=== PATIENT | male | born 1955 | race Caucasian/White ===

== ENCOUNTER → 2018-01-04 07:40 | Outpatient (CLI) | payer MEDICAID, SELFPAY ==
[2018-01-04 08:52] LABS: Hemoglobin A1c 6.6 % (4.2-6.3)
== END ==
PROVIDERS: Family Provider Internal Medicine; PCP Internal Medicine; Visit Provider Internal Medicine
DX: R73.9 Hyperglycemia, unspecified (principal)
CPT/HCPCS: 36415; 83036

== ENCOUNTER 2018-03-25 07:51 | Day surgery (SDC) | payer MEDICAID, SELFPAY ==
--- NOTE | 2018-03-25 | COLBX_PTH ---
PATIENT: AYUSH JONES LOC: EN U#:[id number] AGE/SX: 63/M ROOM: RE03/25/[address]: Dr. Douglas Santiago MD : [id number] BED: DIS: 03/25/2018 SPEC #: [id number] RECD: 03/25/18 11:54 STATUS: AYSE MONI #: [id number] AZRA: 03/25/18 00:[address]: Douglas Santiago DEPT: SURGICAL PATHOLOGY RECD BY: Douglas Talley ENTERED: 03/25/18 13:00 SP TYPE: COLON BX OT DR: Dr. Moe Luke MD Tissues: Sigmoid colon biopsy Procedures: Surgery Specimen Level IV HEADER OPERATION: Colonoscopy PRE-OP DIAGNOSIS: Screening TISSUE SUBMITTED: Distal sigmoid polyp MICROSCOPIC DIAGNOSIS Distal sigmoid polyp, polypectomy: Consistent with inflammatory polyp. SJ:nevaeh 03/26/18 MICROSCOPIC DESCRIPTION Slides are reviewed. GROSS DESCRIPTION Received in fixative is one container labeled with the patient's name and designated distal sigmoid polyp. The specimen consists of a haney-pink polyp measuring 0.7 x 0.5 x 0.3 cm. The specimen is totally submitted in one cassette. / SJ:nevaeh 03/25/18 TC:5 CPT: 46565
[2018-03-25 08:25] VITALS: BP 145/95; PULSE 84; RESP 16; TEMP 36.5; O2SAT 100; BMI 34.7
--- NOTE | 2018-03-25 09:00 | HP.PCM_ITS ---
Past Medical/Surgical History - Planned Operation Planned Operative Procedure/s: colonoscopy open access Date of Operative Procedure: 03/25/18 Permit Signed: No S.O.S: No Is This Patient Having a Total Joint: No - Previous Hospitalizations/Surgeries HX Hospitalizations: No HX of Surgeries: appendix out 1992. removed blood clot from testicle injury. colonoscopy Any Problems With Anesthesia: No You/Your Family Experience Fever (Hyperthermia) With Anes: No Cholinesterase deficiency: No - Cardiovascular Hx Chest Pain within Last 2 months: No Hx of Irregular Heartbeat and/or Afib: Yes - tachycardia/no pediatric psychiatrist Hx Heart Attack: No Hx Congestive Heart Failure: No Hx Rheumatic Fever: No Hx Hypertension: Yes - controlled with med Hx Internal Defibrillator: No Hx Pacemaker: No Hx Cardiac Catheterization: No Hx Cardiac Surgery/Stents/Etc.: No Hx Stress Test: Yes - stress echo 2013/echo 2013 HX Edema: Yes - hands prn Hx Pain in Legs when Walking/Leg Cramps: Yes - cramps prn - Respiratory Chronic Cough: No HX of Shortness of Breath: No Hoarseness: No Hx Chronic Obstructive Pulmonary Disease (COPD): No Hx Asthma: No Hx Emphysema: No Hx Sleep Apnea: Yes CPAP: Yes - doesnt use machine BIPAP: No Hx Oxygen Use at Home: No Hx Respiratory Tract Infection/Cold (presently): No Result (for STOP score): Positive Hx Smoking: Yes - quit 4-5 yrs ago/ 1 pp 3-4 days 30+ yrs Smoking Status: Former smoker - Gastrointestinal Hx Gastroesophageal Reflux: Yes Controlled With Meds: Yes Hx Gastrointestinal Disorders: No Hx Gastrointestinal Bleed: No Hx Ulcer: No Hx Hiatal Hernia: No Difficulty Chewing/Swallowing: No Recent Onset of Swallowing Problems: No Special diet followed at home: No Hx Unplanned Weight Loss of 20#: No HX Unplanned Weight Gain of 20#: Yes - Neurological Hx Seizures: No HX Syncope/Blackout Spells/Unconsciousness: Yes - loc with jammed neck injury Hx CVA/Stroke: No Hx Transient Ischemic Attacks (TIA): No Hx Multiple Sclerosis: No Hx Parkinson's Disease: No Hx Head/Neck Injury: Yes - neck injury 1996/jammed neck on the job/ddd Hx Headaches: Yes - migraines Hx Back Injury/Pain: No Recent Onset of Speech Difficulty: No Restless Legs: No Does patient have nerve stimulator: No Patient instructed to have device shut off: No Rep notified?: No - Blood Disorder Hx Leukemia: No Bleeding Tendencies: No Hx Deep Vein Thrombosis: No Hx High Cholesterol: Yes - on med Hx Hepatitis: No Hx Cirrhosis: No Hx Anemia: No Hx Blood Disorders: No - Genitourinary Hx Renal Disease: No Hx Dialysis: No - Musculoskeletal Hx Arthritis: Yes Hx Rheumatoid Arthritis: No Hx Gout: No Recent Onset of an Orthopedic Problem: No - Endocrine Hx Diabetes: No Thyroid Disease: No Hx Steroid Therapy: No - Psycho/Social Hx Substance Use: No Hx Alcohol Use: No Hx Anxiety: No Hx Depression: No - . Mental Illness: No Hx Dementia: No - Miscellaneous Hx Cancer: No Recent Exposure to Contagious Disease: No Active MRSA: No Hx of C-Diff: No Any Loose Teeth: No - upper denture and partial bottom Allergies No Known Allergies Allergy (Verified 03/20/18 09:02) Home Medications Medication Instructions Recorded enalapril maleate 10 mg tablet 10 mg PO DAILY #90 tab 01/16/18 omeprazole 20 mg capsule,delayed 20 mg PO DAILY #90 cap 01/16/18 release pravastatin 80 mg tablet 80 mg PO QHS #90 tab 01/16/18 Maternal Family History: Family History (Last Reviewed 03/11/18 @ 16:50 by Angela Dunn) Mother Cancer Father Heart disease Myocardial infarction Brother Myocardial infarction Heart disease CVA (cerebral vascular accident) Sister CVA (cerebral vascular accident) Myocardial infarction Hypertension No pertinent history - Discharge Is Pt Admitted From a [facility], or a [facility]: No Who Could Help: family After D/C, Where Do you Plan to Go: Return Home - From the PAT History Number of Risk Factors: 2 - Physical Exam General: Alert, Oriented x3, Cooperative Lungs: Normal air movement Cardiovascular: Regular rate, Regular Rhythm Abdomen: Soft, Non Tender, Non-Distended Vital Signs Temp Pulse Resp BP Pulse Ox 97.7 F L 84 16 145/95 H 100 03/25/18 08:25 03/25/18 08:25 03/25/18 08:25 03/25/18 08:25 03/25/18 08:25 Oxygen Delivery Method Room Air Weight: 256 lb 6.362 oz Body Mass Index (BMI) 34.7 Assessment/Plan 63-year-old male for screening colonoscopy 1. At the current time the patient is having no issues. He reports no bleeding or abdominal pain. He says that he had a colonoscopy 20 years ago and polyps were found but he never followed up or had a repeat colonoscopy. He reports no family history of colon cancer. 2. I explained endoscopy in detail to the patient. I explained the risks including but not limited to stroke or heart attack with anesthesia, perforation of the GI tract, bleeding, infection. I explained that any of these could necessitate further emergency surgery. The patient understands and all questions were answered sufficiently. The patient wishes to proceed with procedure. Douglas Santiago MD Pager: [facility] [address] [place] [address], [address] [place] [address] Office: Surgery Risks - Colonoscopy Risks Include but are not Limited To: Risks include but are not limited to: Bleeding, perforation requiring further surgery, inability to complete colonoscopy requiring barium enema.
--- NOTE | 2018-03-25 09:29 | PCM.OPRPT ---
Problem List (1) Screen for colon cancer Status: Acute Report of Operation Date of Procedure: 03/25/18 Pre-Operative Diagnosis: Screening colon cancer Post-Operative Diagnosis: Distal sigmoid polyp Surgery/Procedure Performed:: Colonoscopy with snare polypectomy Specimen's removed: Distal sigmoid polyp Description of Procedure: The major risks and benefits associated with the procedure were explained to the patient in detail. The patient verbalized understanding and agreement with the same. The patient was brought to the endoscopy suite. After adequate sedation was achieved, the patient was placed in the left lateral decubitus position and a digital rectal exam was performed. This examination was within normal limits. A well-lubricated colonoscope was then inserted into the rectum and advanced under direct visualization to the level of the cecum. The bowel prep was good. The cecum was identified by both visual and anatomic landmarks. A photograph was taken of the end of the cecum. The scope was then fully withdrawn while examining the color, texture, anatomy and integrity of the mucosa from the cecum to the anal canal. The patient had a small distal sigmoid polyp which was removed with cautery snare. Otherwise the findings were consistent with normal colonic mucosa. Over 6 minutes were taken to examine the colonic mucosa. Upon reaching the rectum the scope was retroflexed to examine the distal rectal vault. The scope was then straightened and was completely retrieved upon exiting the anal canal and the procedure was terminated. The patient was then transferred to the recovery room in stable condition. Recommendations for follow up: Dependent on pathology
[2018-03-25 09:31] VITALS: BP 120/78; BP 145/95; PULSE 64; RESP 16; TEMP 36.3; O2SAT 96
[2018-03-25 09:35] VITALS: BP 120/83; BP 145/95; PULSE 60; RESP 16; O2SAT 98
[2018-03-25 09:40] VITALS: BP 121/83; BP 145/95; PULSE 53; RESP 16; O2SAT 96
[2018-03-25 09:45] VITALS: BP 125/79; BP 145/95; PULSE 48; RESP 16; TEMP 36.2; O2SAT 98
[2018-03-25 10:48] VITALS: BP 145/95
== END 2018-03-25 10:49 | disposition home or self-care (01) ==
LOC: EN 07:52 → AC 07:54
PROVIDERS: Family Provider Internal Medicine; PCP Internal Medicine; Visit Provider Surgery
PROC: 0DJD8ZZ Inspection of Lower Intestinal Tract, Via Natural or Artificial Opening Endoscopic (ICD-10-PCS; CPT 45378; principal; 2018-03-25 08:55)
DX: Z12.11 Encounter for screening for malignant neoplasm of colon (principal); K63.5 Polyp of colon; I10 Essential (primary) hypertension; G47.33 Obstructive sleep apnea (adult) (pediatric); K21.9 Gastro-esophageal reflux disease without esophagitis; G43.909 Migraine, unspecified, not intractable, without status migrainosus; E78.00 Pure hypercholesterolemia, unspecified; M06.9 Rheumatoid arthritis, unspecified; Z87.891 Personal history of nicotine dependence; Z79.899 Other long term (current) drug therapy
CPT/HCPCS: 45380; 88305; J7120

== ENCOUNTER 2018-06-02 15:52 | Outpatient (RCR) | payer MEDICAID, SELFPAY | END 2018-06-02 23:59 | LOC: NS 15:52 | PROVIDERS: Family Provider Internal Medicine; PCP Internal Medicine; Visit Provider Internal Medicine | DX: E66.9 Obesity, unspecified (principal); Z68.37 Body mass index [BMI] 37.0-37.9, adult; Z71.3 Dietary counseling and surveillance | CPT/HCPCS: 97802 ==

== ENCOUNTER → 2018-08-08 08:21 | Outpatient (CLI) | payer BC, SELFPAY ==
[2018-08-08 09:11] LABS: Microalbumin,Random Urine 8.8 mg/L (NO RANGE EST.); Microalbumin:Creatinine Ratio 10.5 mg/g CRE (<30 mg/g CRE)
[2018-08-08 09:23] LABS: Cholesterol 184 mg/dL (200); Hemoglobin A1c 6.3 % (4.2-6.3); High Density Lipoprotein 49 mg/dL; PSA,Total - Annual Screen 0.43 ng/mL (0.00-4.00); Thyroid Stim Hormone (TSH) 1.34 uIU/mL (0.358-3.74); Triglycerides 180 mg/dL; Very Low Density Lipoprotein 36 mg/dL (5-40)
== END ==
PROVIDERS: Nurse Practitioner Family; Family Provider Internal Medicine; PCP Internal Medicine; Visit Provider Internal Medicine
DX: E11.9 Type 2 diabetes mellitus without complications (principal); I10 Essential (primary) hypertension; Z12.5 Encounter for screening for malignant neoplasm of prostate; Z13.29 Encounter for screening for other suspected endocrine disorder
CPT/HCPCS: 36415; 80061; 82043; 82570; 83036; 84153; 84443; G0103

== ENCOUNTER → 2019-12-23 14:36 | Outpatient (CLI) | payer BC, SELFPAY ==
[2019-12-23 14:30] VITALS: BMI 33.9
--- NOTE | 2019-12-23 14:37 | RAD_ITS ---
STUDY: X-RAY - RIGHT HAND REASON FOR EXAM: Bilateral hand pain. TECHNIQUE: 3 view(s) of the hand. COMPARISON: None. FINDINGS: Normal radiocarpal articulation. Normal distal radioulnar joint. Normal visualized carpal bones. Normal carpal articulations Normal carpometacarpal articulation of the thumb. Normal second through fifth carpometacarpal joints. Normal metacarpi. Normal metacarpophalangeal joint of the thumb. Normal interphalangeal joint of the thumb. Normal proximal and distal phalanges of the thumb. Normal metacarpophalangeal joints of the second through fifth fingers. There is joint space narrowing of the distal interphalangeal joints of the second through fifth fingers. Normal phalanges of the second through fifth fingers. The soft tissue structures are unremarkable. RAD/Hand Min 3 Views IMPRESSION: Arthrosis of the distal interphalangeal joints. Electronically Signed: Orlando Acosta MD at 14:58 EST Tel , Service support ,
--- NOTE | 2019-12-23 14:41 | RAD_ITS ---
STUDY: X-RAY - LEFT HAND REASON FOR EXAM: Bilateral hand pain. TECHNIQUE: 3 view(s) of the hand. COMPARISON: Radiographs 07/08/2013. FINDINGS: Normal radiocarpal articulation. Normal distal radioulnar joint. Normal visualized carpal bones. Normal carpal articulations Normal carpometacarpal articulation of the thumb. Normal second through fifth carpometacarpal joints. Normal metacarpi. Normal metacarpophalangeal joint of the thumb. Normal interphalangeal joint of the thumb. Normal proximal and distal phalanges of the thumb. Normal metacarpophalangeal joints of the second through fifth fingers. There is joint space narrowing of the distal interphalangeal joints of the second through fifth fingers similar to the prior study. There is interval development of joint space narrowing of the second proximal interphalangeal joint. Normal phalanges of the second through fifth fingers. There is a small ossicle at the radial aspect of the trapezium as on the prior study. RAD/Hand Min 3 Views IMPRESSION: Arthrosis of the distal interphalangeal joints and second proximal interphalangeal joint. Electronically Signed: Orlando Acosta MD at 14:58 EST Tel , Service support ,
== END ==
LOC: HPRAD 14:37
PROVIDERS: PCP Internal Medicine; Referring Provider Orthopaedic Surgery; Visit Provider Orthopaedic Surgery
DX: M79.641 Pain in right hand (principal); M79.642 Pain in left hand
CPT/HCPCS: 73130

== ENCOUNTER → 2020-03-18 | Outpatient (CLI) | payer BC, SELFPAY ==
[2020-03-18 08:02] VITALS: BMI 35.2
--- NOTE | 2020-03-18 08:11 | RAD_ITS ---
STUDY: X-RAY - LEFT ELBOW REASON FOR EXAM: Male, 65 years old. PAIN AND TIGHTNESS FOLLOWING INJURY AND FEELING A POP TECHNIQUE: 3 view(s) of the elbow. COMPARISON: None. FINDINGS: Normal visualized humerus, radius and ulna. Normal radiocapitellar and ulnotrochlear articulations. The soft tissue structures are unremarkable. RAD/Elbow min 3 Views IMPRESSION: Normal x-ray examination of the elbow. Electronically Signed: Adam Richardson MD at 8:31 EDT Tel , Service support ,
== END | disposition home or self-care (01) ==
LOC: HPRAD 08:11
PROVIDERS: PCP Internal Medicine; Referring Provider Physician Assistant Surgical; Visit Provider Physician Assistant Surgical
DX: S46.912A Strain of unspecified muscle, fascia and tendon at shoulder and upper arm level, left arm, initial encounter (principal)
CPT/HCPCS: 73080

== ENCOUNTER 2020-03-25 08:46 | Outpatient (RCR) | payer BC, SELFPAY ==
[2020-03-18 08:35] VITALS: BMI 35.2
--- NOTE | 2020-03-25 09:42 | HP.PTEVAL_ITS ---
Patient's Visit Information AYUSH JONES is a 65 year old M referred to Physical Therapy by STUART Coats with a diagnosis of L upper arm/shoulder muscle tendon strain. Date of Evaluation: 03/25/20 Physical Therapist: Maulik Brizuela DPT, OCS, CSCS - Visit Plan Frequency: 3x /Week Duration: 2-4 Weeks Plan: 3x/week for 2-4 weeks for. L elbow ROM and mobs to tolerance to regain motion. L elbow and shoulder strength taking care with L triceps pain. STM L triceps. US L triceps distal tendon nonthermal - Subjective L arm hurts. One year ago got problems with R shoulder and diagnosed with frozen shoulder. Now L elbow two weeks ago on line at [employer], raeaching into bin quite a bit and felt snap in elbow and it hurt. Has worked through it and has been better but snapping lately. Now does not hurt to move but does to push. Pain is from L elbow to wrist. Getting dressed at collar is limtied due to limited elbow flexion on L and cn't straighten it all the way. Sleep is interrupted sometimes but that is not terribly unusual for him. Still working even with bad arm. Also pulled out kitchen floor last week so can do things but it hurts at certain times . Shoulder and neck are fine, no numbness or tingling. - Pain L forearm/elbow/wrist Pain Intensity (Out of 10): 0 Pain Intensity Range: 0, 8, 9 - Objective R elbow 46 degree bend adn L 60, R -5 ext adn L -17; PROM is to 50 on L flexion and -10 ext with pain end range B being limiting factor. springy end feels on L elbow end range of ext adn flexion. Hard to relaxPosture is forward head and elevated scap B with protraction. Shoulder wrist adn finger AROM B WNL. Neck aROM WNL and no pain. Resisted shoulder movvments not painful and 4+/5, wrist and thumb ext adn flexion 4+ without pain B. R elbow ext and felxion 5/5 and L elbow flexion 5 and extension 3+ with pain proximal to posterior elbow. Also max tender int his area over triceps tendon. and fat pad only. - elbow valgus and varus. reflexes 2/3 bi and tri. sensation WNL to gross light touch in B UE. nerve stretches median and radial and ulnar are no problem. Walks and trasnitions normally. - Goals Goal 1:: Full L elbow AROM without pain to turn down collar normally Goal Time Frame: 2-4 Weeks Goal 2:: Sleep without interruption from L elbow Goal Time Frame: 2-4 Weeks Goal 3:: Work without noticing pain in L elbow and without limitations. Goal Time Frame: 2-4 Weeks Goal 4:: Pt feel 90% better adn <18 score on DASH. Goal Time Frame: 2-4 Weeks - Rehabilitation Potential Physical Therapy Diagnosis: L triceps tendon strain. Rehabilitation Potential: Fair - Anticipated Interventions Patient/Client Instruction: Educate patient on: Condition, Plan of Care For the Purpose of:: To decrease pain, To increase ROM, To improve muscle performance and motor function, To increase tolerance to activity/condition/position, To improve ability of physical actions for home/community/work/leisure Therapeutic Exercise to Include: Strength training, Postural training, Flexibilty training, Passive ROM, Active ROM For the Purpose of:: To decrease pain, To increase ROM, To improve muscle per formance and motor function, To increase tolerance to activity/condition/position, To improve ability of physical actions for home/community/work/leisure Manual Therapy Techniques to Include: Passive ROM, Soft tissue mobilization For the Purpose of:: To decrease pain, To increase ROM Ultrasound (thermal/non thermal): Yes For the Purpose of:: To decrease pain, To decrease swelling/inflammation Thank you for the opportunity to evaluate your patient. For Medicare and Medicare HMO plans, please review the plan of care and approve it. It will need to be FAXED BACK to us at [phone] for Medicare purposes. For Medicare only, by signing this I certify the plan of care. Please let me know if there are questions or concerns regarding this plan of care. Physician Signature: Date:
--- NOTE | 2020-06-01 11:03 | HP.PT.NRP ---
AYUSH JONES was seen in my office for initial evaluation on 03/25/20. The following Plan of Care was established for this patient: Initial Frequency: 3x /Week Initial Duration: 2-4 Weeks Patient/Client Instruction: Educate patient on: Condition, Plan of Care For the Purpose of:: To decrease pain, To increase ROM, To improve muscle performance and motor function, To increase tolerance to activity/condition/position, To improve ability of physical actions for home/community/work/leisure Therapeutic Exercise to Include: Strength training, Postural training, Flexibilty training, Passive ROM, Active ROM For the Purpose of:: To decrease pain, To increase ROM, To improve muscle performance and motor function, To increase tolerance to activity/condition/position, To improve ability of physical actions for home/community/work/leisure Manual Therapy Techniques to Include: Passive ROM, Soft tissue mobilization For the Purpose of:: To decrease pain, To increase ROM Ultrasound (thermal/non thermal): Yes For the Purpose of:: To decrease pain, To decrease swelling/inflammation This patient was last seen in our office 03/25/20. Pertinent comments regarding their Physical therapy will appear below: Pt seen for eval and plan of care established. Pt neglected to schedule or attend any further visits. at this point, it has been over two months and I will discontinue due to nonattendance. At this point I will be discontinuing this patient from physical therapy. I would be happy to see this patient again in the future if found appropriate by the physician. Thank you! Maulik Brizuela, DPT, OCS, CSCS
== END 2020-03-25 19:00 | disposition home or self-care (01) ==
LOC: PT 08:46
PROVIDERS: PCP Internal Medicine; Referring Provider Physician Assistant Surgical; Visit Provider Physician Assistant Surgical
DX: S46.912D Strain of unspecified muscle, fascia and tendon at shoulder and upper arm level, left arm, subsequent encounter (principal)
CPT/HCPCS: 97110; 97161

== ENCOUNTER 2020-08-21 06:22 | Emergency (ER) | payer BC, SELFPAY ==
[2020-03-18 08:35] VITALS: BMI 35.2
[2020-08-21 06:23] VITALS: BP 174/111; PULSE 84; RESP 16; TEMP 36.6; O2SAT 97; BMI 34.5
--- NOTE | 2020-08-21 06:37 | ED.DCSUM_ITS ---
History of Present Illness Chief Complaint: Sore Throat Informant: Patient Narrative: Patient is a 65-year-old male who presents to the emergency department for voice hoarseness, cough and runny nose. His initial symptoms started 4 days ago with the congestion. This resolved and now he feels like his voice is going. Denies any significant sore throat. No ear pain. His throat gets very phlegmy and this causes him to cough. He tries to get as much of this up as possible. He denies any fevers or chills. States he feels great otherwise. No known sick contacts. Denies any coronavirus exposures. He denies any nausea/vomiting or diarrhea. No rashes. No headache or stiff neck. Patient wanted to make sure that he was healthy from the coronavirus given the fact this was to get his flu shot in the next week or 2. He denies any chest pain or shortness of breath. Past Medical History - Allergies and Home Meds Allergies/Adverse Reactions: Allergies No Known Allergies Allergy (Verified 12/09/19 16:49) Primary Care Physician: Moe Luke MD [Primary Care Provider] - 1 Week if not improving Past Medical History: - - Diabetes, hypertension, hyperlipidemia Surgical History: noncontributory, - Smoking Status: Former smoker - Family History Maternal Family History: Family History (Last Reviewed 03/18/20 @ 08:05 by Michelle Salinas) Mother Cancer Father Heart disease Myocardial infarction Brother Myocardial infarction Heart disease CVA (cerebral vascular accident) Sister CVA (cerebral vascular accident) Myocardial infarction Hypertension Family History: Reports: No pertinent history Review of Systems General: Denies: Chills, Fever, Sweats Eyes: Denies: Visual changes - bilaterally, Diplopia ENT: Reports: Rhinorrhea. Denies: Bilateral ear pain Cardiovascular: Denies: Chest pain, Palpitations Respiratory: Reports: Cough. Denies: Dyspnea, Dyspnea on exertion Gastrointestinal: Denies: Abdominal pain, Nausea, Vomiting, Diarrhea Genitourinary: Denies: Dysuria, Hematuria, Frequency Musculoskeletal: Denies: Back pain, Extremity Pain Skin: Denies: Rash, Wounds Neurological: Denies: Headache, Weakness, Numbness Physical Exam Vital Signs/Narrative: Vital Signs Temp Pulse Resp BP Pulse Ox 08/21/20 06:23 97.8 F 84 16 174/111 H 97 Inital Vital Signs reviewed: Yes General: Well nourished, Well developed, No Acute Distress Head: Normocephalic, Atraumatic Eyes: Perrl, EOMI ENT: Moist mucous membranes, No rhinorrhea, - - Patient has a mildly hoarse voice but no issues handling secretions. No obvious mass or abscess present. Oral pharyngeal erythema but no tonsillar exudates. Neck: Supple, Nontender Cardiovascular: Regular rate, Regular rhythm, No murmurs Respiratory: No distress, CTA bilaterally, Chest nontender Abdomen: Soft, Nontender, Nondistended, Normal bowel sounds Back: Nontender, Normal Inspection Extremities: Nontender, No edema Skin: Normal color, No rash Neurological: Alert, Oriented x3, Normal Strength, Normal Sensation Psychological: Normal affect, Normal Mood Diagnostic/Tx/Re-eval - Medical Decision Making Patient presents the emerge department for raspy voice, rhinorrhea and cough due to phlegm. Upon arrival to the ED vital signs within normal limits except for hypertensive. He is in no acute distress. States he feels very well. He is nontoxic-appearing. Will screen for coronavirus as is what he is concerned of. Otherwise I believe that he has a laryngitis from a viral infection. He can gargle salt water and use throat lozenges as needed. Warning signs and symptoms for which to return to the ED including any difficulty breathing, oral swelling or developing any fever/chills are reviewed with him. He understands and is agreeable this plan. Will discharge home in stable condition. He is to follow- up with his PCP. ED Disposition - Plan for ED Patient: Disposition: Home or Assisted Living Diagnosis: Laryngitis Instructions: ED Laryngitis Referrals: Moe Luke MD [Primary Care Provider] - 1 Week if not improving
[2020-08-21 07:00] VITALS: PULSE 84; RESP 16; TEMP 36.6; O2SAT 97
== END 2020-08-21 07:01 | disposition home or self-care (01) ==
LOC: ED 06:53
PROVIDERS: Emergency Provider Emergency Medicine; PCP Internal Medicine
DX: J04.0 Acute laryngitis (principal); I10 Essential (primary) hypertension; E78.5 Hyperlipidemia, unspecified; E11.9 Type 2 diabetes mellitus without complications; Z79.899 Other long term (current) drug therapy
CPT/HCPCS: 87635; 99282; U0003

== ENCOUNTER 2020-11-30 05:41 | Emergency (ER) | payer BC, SELFPAY ==
[2020-08-24 15:55] VITALS: BMI 34.5
[2020-11-30] VITALS (7 sets, daily range): BP systolic 116–181; BP diastolic 74–103; PULSE 56–76; RESP 14–19; TEMP 36.1; O2SAT 98–99; BMI 33.8
--- NOTE | 2020-11-30 05:47 | RAD_ITS ---
HISTORY: CP EXAM: XR Chest 1 View: COMPARISON: July 18, 2015 FINDINGS: # of images incl. paperwork: 1 Lungs are clear. Heart is not enlarged. No acute osseous pathology perceived. Pulmonary vascularity is distinct. No effusions. RAD/Chest 1 View (Portable) IMPRESSION: No acute cardiopulmonary disease perceived. at 0618 Reported and signed by: Tarun Sabillon MD Electronically Signed: Tarun Sabillon MD at 6:17 EST Tel , Service support ,
--- NOTE | 2020-11-30 05:47 | EKG12_ITS ---
Test Reason : CP Blood Pressure : / mmHG Vent. Rate : 073 BPM Atrial Rate : 073 BPM P-R Int : 158 ms QRS Dur : 088 ms QT Int : 384 ms P-R-T Axes : 043 039 050 degrees QTc Int : 423 ms Normal sinus rhythm Normal ECG Confirmed by RICHELLE PALMA, SANDRA ([id number]), story editor SANDRA GORDON ([id number]) on 12/05/2020 10:59:39 AM Referred By: BRUNA Confirmed By:TEJAS PEOPLES MD
--- NOTE | 2020-11-30 05:48 | ED.VISSUMM ---
- ER Visit Summary Date of Service: 11/30/20 Chief Complaint: Chest pain History of Present Illness: The patient is a 65 M who presents with chest pain. He states that started about 20 minutes ago. He was getting ready for work and felt a sharp pain on his left chest. He also describes as tightness. While he was driving here the pain went away on its own. Nothing seemed to make it better or worse. He currently has no pain. He did feel short of breath when this was occurring. He had an episode like this which he describes as worse 6 years ago. He had an outpatient stress test which was negative. He has hypertension high cholesterol but no other cardiac risk factors. He has never had a heart attack. He does not take aspirin at home. Physical Examination: Vital signs reviewed. HEENT exam unremarkable. Heart is regular rate and rhythm without murmurs. Lungs are clear to auscultation. Abdomen is soft and nontender. Extremities reveal no edema. Peripheral pulses are equal. Skin exam normal. Neurologic exam normal. Test Results: \EKG is normal sinus rhythm with rate of 73. No ST changes. Laboratory studies are unremarkable except for glucose of 134. Chest x-ray normal. Emergency Department Course and Treatment: The patient remained pain-free throughout his stay. He did receive aspirin. When I reevaluated him he was still pain-free. Due to his 2 risk factors, I will do a 3-hour troponin. If this is negative he will be discharged home to follow-up for outpatient stress test. Treatment Plan: [] Disposition: Pending Impression: Chest pain This note was generated with ViewCast dictation software. It may contain incorrect words, spelling, and punctuation that were not noted in review of the chart prior to signing ED Disposition - Plan for ED Patient: Referrals: Moe Luke MD [Primary Care Provider] -
[2020-11-30 05:54] LABS: Absolute Lymphocyte Count 1.66 X10^3/uL (0.83-4.51); Absolute Neutrophil Count 3.7 X10^3/uL (2.0-7.7); Basophil# 0.03 X10^3/uL; Basophil% 0.5 % (0-1); Eosinophil# 0.17 X10^3/uL; Eosinophils% 2.7 % (0-5); Hematocrit 42.2 % (40-54); Hemoglobin 14.1 g/dL (13.0-16.5); Lymphocyte # 1.66 X10^3/ul (4.0); Lymphocyte % 26.1 % (19-41); Mean Corp Hgb Conc 33.4 g/dL (32-36); Mean Corpuscular Hgb 30.5 pg (27.0-32.0); Mean Corpuscular Volume 91.3 fL (80-94); Mean Platelet Vol. 8.9 fl (6.2-12.0); Monocyte# 0.75 X10^3/uL; Monocyte% 11.8 % (0-10); NRBC Flagged by Analyzer 0 % (0-5); Neutrophil # 3.72 X10^3/uL (2.7-7.7); Neutrophil % 58.6 % (47-70); Platelet Count 217 K/mm3 (150-450); RBC Distribution Width CV 11.9 % (11.6-14.6); RBC Distribution Width SD 39.5 fl (35.1-43.9); Red Blood Count 4.62 M/mm3 (4.6-6.2); White Blood Count 6.4 K/mm3 (4.4-11.0)
[2020-11-30] MEDS: Aspirin 81 MG TAB.CHEW 324 MG PO (05:55)
[2020-11-30 06:12] LABS: Anion Gap 4 (5-15); BUN 24 mg/dL (7-18); BUN/Creat Ratio 19.8 RATIO (10-20); Calcium,Total 8.9 mg/dL (8.5-10.1); Chloride 104 mmol/L (98-107); Creatinine, Serum 1.21 mg/dL (0.70-1.30); EST Glomerular Filtration Rate 64 mL/min (>60); Est Glom Filt Rate - Afr Amer 78 mL/min (>60); Glucose 154 mg/dL (74-106); Potassium 4.3 mmol/L (3.5-5.1); Sodium Level 136 mmol/L (136-145)
--- NOTE | 2020-11-30 06:35 | ED.DEP ---
ED Disposition - Plan for ED Patient: Disposition: Home or Assisted Living Instructions: ED Chest Pain, Uncertain Cause Referrals: Moe Luke MD [Primary Care Provider] -
== END 2020-11-30 09:40 | disposition home or self-care (01) ==
PROVIDERS: Emergency Provider Emergency Medicine; PCP Internal Medicine
DX: R07.89 Other chest pain (principal); I10 Essential (primary) hypertension; E78.00 Pure hypercholesterolemia, unspecified; K21.9 Gastro-esophageal reflux disease without esophagitis; Z79.899 Other long term (current) drug therapy
CPT/HCPCS: 36415; 71045; 80048; 84484; 85025; 93005; 99285; A4216

== ENCOUNTER 2021-04-22 01:12 | Emergency (ER) | payer BC, SELFPAY ==
[2021-04-19 14:03] VITALS: BMI 33.8
[2021-04-22 01:13] VITALS: BP 159/95; PULSE 83; RESP 18; TEMP 37.6; O2SAT 94; BMI 33.4
[2021-04-22 01:16] VITALS: BP 159/95; PULSE 77; RESP 18; TEMP 37.6; O2SAT 95
--- NOTE | 2021-04-22 01:24 | RAD_ITS ---
STUDY: X-RAY CHEST REASON FOR EXAM: Male, 66 years old. covid 19 shortness of breath TECHNIQUE: 1 view COMPARISON: 11/30/2020 FINDINGS: Cardiomediastinal silhouette is unremarkable. Costophrenic angles are sharp. Lungs are clear. The trachea is midline. There is no pneumothorax. Multilevel thoracic spondylosis noted. RAD/Chest 1 View (Portable) IMPRESSION: No acute cardiopulmonary process. Electronically Signed: Nomi Shook MD at 1:58 EDT Tel , Service support ,
--- NOTE | 2021-04-22 01:26 | EDS_ITS ---
HPI History of Present Illness Chief Complaint: Cough Informant: patient and EMS Narrative Narrative: 66-year-old male presents to the emergency department via EMS with cough from COVID-19. He states he tested positive at the [facility] locally on Saturday. He reports that he is not having any sputum. Fever is better. He did lose his sense of taste. He denies really any other symptoms. His had to be hospitalized. He is not currently taking any prescription medications. He has tried [id number] medicines. His biggest complaint is some left sided chest soreness with coughing. [facility] Medical History Abnormal bruising Arthritis Chronic back pain Diabetes Fatigue Frequent headaches Hyperlipemia Limb weakness Shoulder pain Home Medications enalapril maleate 20 mg tablet See Rx Instructions .ROUTE .COMPLEX #90 tab 08/24/20 [Rx Last Taken Unknown] omeprazole 20 mg capsule,delayed release 20 mg PO DAILY #30 cap 04/07/21 [Rx Last Taken Unknown] pravastatin 80 mg tablet 80 mg PO QHS #30 tab 04/07/21 [Rx Last Taken Unknown] benzonatate 100 mg capsule 100 mg PO TID PRN #30 cap 04/19/21 [Rx Last Taken Unknown] guaifenesin 1,200 mg tablet, extended release 12 hr 1,200 mg PO BID #20 tab 04/19/21 [Rx Last Taken Unknown] acetaminophen-codeine 1 tab PO Q6H PRN #20 tab 04/22/21 [Rx Last Taken Unknown] dexamethasone [Decadron] 6 mg PO DAILY #4 tab 04/22/21 [Rx Last Taken Unknown] Allergy/AdvReac Type Severity Reaction Status Date / Time No Known Allergies Allergy Verified 11/30/20 05:48 Family History Mother Cancer Father Heart disease Myocardial infarction Brother Myocardial infarction Heart disease CVA (cerebral vascular accident) Sister CVA (cerebral vascular accident) Myocardial infarction Hypertension Surgical History History of appendectomy Social History Smoking Status: Never smoker how long ago did patient quit smokin alcohol intake: never substance use type: does not use what type of physical activity do you participate in: none ROS ROS ED Constitutional Constitutional ED: Denies chills or weight loss Eyes Eyes: Denies change in vision or diplopia ENT ENT ED: Denies ear pain, rhinorrhea or sore throat Cardiovascular Cardiovascular: Reports chest pain; Denies orthopnea, palpitations or racing heartbeat Respiratory/Chest Respiratory/Chest: Reports cough; Denies dyspnea or orthopnea Gastrointestinal Gastrointestinal: Denies abdominal pain, diarrhea, nausea or vomiting Genitourinary Genitourinary ED: Denies dysuria, hematuria or urinary frequency Musculoskeletal Musculoskeletal: Denies arthralgias or myalgias Integumentary Denies abscess or rash Neurologic Neurologic: Denies headache(s) or weakness Psychiatric Psychiatric: Denies anxiety, depression, suicidal ideation or suicidal thoughts Endocrine Endocrinology: Denies polydipsia, polyphagia or polyuria Allergic/Immunologic Allergic/Immunologic ED: Denies mouth swelling, tongue swelling or urticaria EXAM Physical Exam Const Vital Signs: 04/22/21 01:13 04/22/21 01:16 Temperature 99.7 F H 99.7 F H Temperature Source Oral Oral Pulse Rate 83 77 Respiratory Rate 18 18 Blood Pressure 159/95 H 159/95 H Blood Pressure Mean 116 116 Pulse Ox 94 95 Oxygen Delivery Method Room Air Room Air Positive well nourished and well developed General Appearance ED: well developed HEENT Reports normocephalic, head/scalp atraumatic and moist mucous membranes Eyes PERRL and EOMs intact bilaterally Neck no lymphadenopathy, supple and no JVD Resp normal respiratory effort and clear to auscultation bilaterally Resp Narrative: Tender palpation over the left anterior mid and lower costochondral border Effort and Inspection: pain with movement Cardio regular rate, regular rhythm and no murmurs GI normal to inspection, nondistended, normoactive bowel sounds and non-tender Palpation: soft Back/Spine no CVA tenderness and normal ROM Extremity normal to inspection General Extremety ED: Negative for edema General Extremity: Negative for edema Neuro oriented x3 and CN's II-XII intact bilaterally Sensorium / Orientation: alert Motor Exam: strength 5/5 throughout Psych mental status grossly normal Mood & Affect: Negative for depressed or tearful Skin no rashes or lesions noted and no wounds MDM MDM MDM Narrative Medical decision making narrative: Patient received albuterol and Decadron. He will receive prescription for the same. I can also write some Tylenol with codeine for the cough. My interpretation of the chest x-ray is is atelectatic changes of the left lower lung. Patient will be discharged home. Return if worsening or concerns he does have a pulse oximeter at home Discharge Plan Triage Chief Complaint: Cough ED Provider: Tyrone Walker Dx/Rx/DC Orders Clinical Impression: COVID-19, Acute chest wall pain Instructions: Coronavirus Disease 2019 (COVID-19): Caring for Yourself or Others, ED Chest Wall Pain, Costochondritis Prescriptions: New dexamethasone [Decadron] 6 mg tablet 6 mg PO DAILY Qty: 4 RF: 0 acetaminophen-codeine 300-30 mg tablet 1 tab PO Q6H PRN (Reason: pain) Qty: 20 RF: 0 No Action enalapril maleate 20 mg tablet See Rx Instructions .ROUTE .COMPLEX Qty: 90 RF: 3 benzonatate [Tessalon Perles] 100 mg capsule 100 mg PO TID PRN (Reason: cough) Qty: 30 RF: 0 guaifenesin 1,200 mg tablet extended release 12hr 1,200 mg PO BID Qty: 20 RF: 0 omeprazole 20 mg capsule,delayed release(DR/EC) 20 mg PO DAILY Qty: 30 RF: 0 pravastatin 80 mg tablet 80 mg PO QHS Qty: 30 RF: 0 Primary Care Provider: Moe Luke Referrals: Moe Luke MD [Primary Care Provider] - As Needed Disposition Disposition: Home, self care
[2021-04-22 02:01] VITALS: BP 141/94; PULSE 81; RESP 15; TEMP 36.9; O2SAT 95
[2021-04-22] MEDS: dexAMETHasone 4 MG Tablet 6 MG PO (02:03)
[2021-04-22] MEDS: INHALER, ASSIST DEVICES 1 EACH SPACER 2 EACH INHALATION (02:04)
[2021-04-22 02:06] VITALS: O2SAT 95
== END 2021-04-22 02:11 | disposition home or self-care (01) ==
PROVIDERS: Emergency Provider Emergency Medicine; PCP Internal Medicine
DX: U07.1 COVID-19 (principal); R07.89 Other chest pain; M19.90 Unspecified osteoarthritis, unspecified site; E11.9 Type 2 diabetes mellitus without complications; E78.5 Hyperlipidemia, unspecified; Z79.899 Other long term (current) drug therapy
CPT/HCPCS: 71045; 99284

== ENCOUNTER 2021-04-28 10:02 | Emergency (ER) | payer BC, SELFPAY ==
[2021-04-28 10:05] VITALS: BP 129/92; PULSE 84; RESP 18; TEMP 36.6; O2SAT 98; BMI 33.5
[2021-04-28 10:12] VITALS: BP 129/92; PULSE 84; RESP 18; TEMP 36.6; O2SAT 98
[2021-04-28 10:23] VITALS: BMI 33.5
--- NOTE | 2021-04-28 10:30 | EKG12_ITS ---
Test Reason : Blood Pressure : / mmHG Vent. Rate : 095 BPM Atrial Rate : 095 BPM P-R Int : 132 ms QRS Dur : 084 ms QT Int : 348 ms P-R-T Axes : 037 031 044 degrees QTc Int : 437 ms Normal sinus rhythm Normal ECG Confirmed by REVA PALMA, JAZMIN ([id number]), video editor MATHEW KELLER ([id number]) on 05/01/2021 1:35:00 PM Referred By: GILMA/ROSAURA Confirmed By:JAZMIN ARDON MD
--- NOTE | 2021-04-28 10:31 | EDS_ITS ---
HPI History of Present Illness Chief Complaint: Neuro S/Sx Informant: patient Narrative Narrative: Patient is a 66-year-old male that is about 10 to 11 days status post COVID-19 infection presenting with blurry vision. Patient states his Covid course is been relatively uncomplicated. 6 days ago he was seen in the ER for chest wall pain associated with coughing and was started on steroid burst, pain medicine and an inhaler. He states his coughing and chest pain has resolved and he finishes steroids 2 days ago. He states over the past 4 days has had increased blurry vision. He states it looks like he is looking at things underwater. He does not wear corrective lenses normally. He notes he is also had a painful lump in his throat and white plaques on his tongue and mouth. His thinks he has thrush. He notes he had some slight ringing in his ear right greater than left for the past 2 days. He had a mild headache 2 days ago but that resolved with [id number] Excedrin and did not return. He denies any weakness or paresthesias. He notes he has had polyuria and polydipsia. His chart says he has a history of diabetes however patient denies any history of diabetes mellitus. He is not check his blood sugar at home. He is not on anti coagulation. Denies any head injuries. Not complain of any photophobia. No other complaints at this time. [facility] Medical History Abnormal bruising Arthritis Chronic back pain Diabetes Fatigue Frequent headaches Hyperlipemia Limb weakness Shoulder pain Home Medications enalapril maleate 20 mg tablet See Rx Instructions .ROUTE .COMPLEX #90 tab 08/24/20 [Rx Last Taken Unknown] omeprazole 20 mg capsule,delayed release 20 mg PO DAILY #30 cap 04/07/21 [Rx Last Taken Unknown] pravastatin 80 mg tablet 80 mg PO QHS #30 tab 04/07/21 [Rx Last Taken Unknown] benzonatate 100 mg capsule 100 mg PO TID PRN #30 cap 04/19/21 [Rx Last Taken Unknown] guaifenesin 1,200 mg tablet, extended release 12 hr 1,200 mg PO BID #20 tab 04/19/21 [Rx Last Taken Unknown] acetaminophen-codeine 1 tab PO Q6H PRN #20 tab 04/22/21 [Rx Last Taken Unknown] dexamethasone [Decadron] 6 mg PO DAILY #4 tab 04/22/21 [Rx Last Taken Unknown] metformin 500 mg PO BID #20 tab 04/28/21 [Rx Last Taken Unknown] nystatin 4 ml PO Q6H #60 ml 04/28/21 [Rx Last Taken Unknown] Allergy/AdvReac Type Severity Reaction Status Date / Time No Known Allergies Allergy Verified 04/28/21 10:12 Family History Mother Cancer Father Heart disease Myocardial infarction Brother Myocardial infarction Heart disease CVA (cerebral vascular accident) Sister CVA (cerebral vascular accident) Myocardial infarction Hypertension Surgical History History of appendectomy Social History Smoking Status: Never smoker how long ago did patient quit smokin alcohol intake: never substance use type: does not use what type of physical activity do you participate in: none ROS ROS ED Constitutional Constitutional ED: Denies chills, fever(s) or malaise Eyes Eyes: Reports blurry vision; Denies diplopia or loss of vision ENT ENT ED: Reports sore throat; Denies ear pain or rhinorrhea Cardiovascular Cardiovascular: Denies chest pain or dizziness Respiratory/Chest Respiratory/Chest: Denies cough or dyspnea Gastrointestinal Gastrointestinal: Denies nausea or vomiting Genitourinary Genitourinary ED: Denies dysuria or hematuria Musculoskeletal Musculoskeletal: Denies arthralgias or myalgias Integumentary Denies rash or wounds Neurologic Neurologic: Denies focal weakness or headache(s) Psychiatric Psychiatric: Denies anxiety or behavioral changes Endocrine Endocrinology: Reports polydipsia and polyuria EXAM Physical Exam Const Vital Signs: 04/28/21 10:05 04/28/21 10:12 04/28/21 11:12 Temperature 98 F 98 F 97.6 F L Temperature Source Temporal Temporal Temporal Pulse Rate 84 84 64 Respiratory Rate 18 18 18 Blood Pressure 129/92 H 129/92 H 113/75 Blood Pressure Mean 104 104 87 Pulse Ox 98 98 Oxygen Delivery Method Room Air Room Air 04/28/21 12:00 04/28/21 14:47 Temperature 98 F Temperature Source Temporal Pulse Rate 76 61 Respiratory Rate 15 16 Blood Pressure 130/91 H 142/84 H Blood Pressure Mean 104 Pulse Ox 97 Oxygen Delivery Method Positive well nourished, well developed and no apparent distress General Appearance ED: well developed HEENT Reports normocephalic, TM's clear and moist mucous membranes HEENT Narrative: Patient is a white plaque on his buccal surface and erythema of the oropharynx consistent with thrush atraumatic Nose: no nasal discharge General Ear: hearing grossly impaired External Ear: external ears normal Tympanic Membrane ED: Yes TM's clear Mouth ED: Yes moist mucous membranes abnormal Mouth: moist mucous membranes abnormal Eyes PERRL and EOMs intact bilaterally Neck full ROM, no lymphadenopathy, supple, no meningeal signs and no JVD Chest Wall inspection of chest normal Resp normal respiratory effort, normal air movement and clear to auscultation bilaterally Auscultation: Negative for wheezes Cardio regular rate and regular rhythm GI normal to inspection, nondistended, normoactive bowel sounds Extremity normal to inspection and full ROM Neuro oriented x3, CN's II-XII intact bilaterally, no focal motor deficits and no sensory deficits noted Neuro Narrative: Normal [id number] Sensorium / Orientation: alert Motor Exam: strength 5/5 throughout Psych mental status grossly normal and thought process normal Skin no rashes or lesions noted and no wounds MDM MDM MDM Narrative Medical decision making narrative: Patient is evaluated for blurry vision. He recently had Covid and is recently been on antibiotics. He denies any history of diabetes but chart shows that he does have a history of diabetes but he is not on any medications/treatment for diabetes mellitus. I suspect his blurred vision associated with hyperglycemia. He has a normal neurologic exam otherwise does not have a visual field cut. Patient is hyperglycemic with a glucose of 319 however he has a normal anion gap and no ketones/acetone. He does have a mild leukocytosis of 12.1 but there is no obvious or some infection. Urinalysis shows spillage of glucose but no signs of infection. Patient does have thrush on oral exam. Patient feels he has had some improvement with IV fluids. I suspect his hyperglycemia is exacerbated by his recent Decadron prescription. Given he did recently have Covid and the risk of clotting I did perform a head CT and CTA which were negative. I did discuss the case with his PCP who is agreeable with outpatient follow-up and with starting Metformin. She stresses that he should follow-up in the office on Saturday. Patient states he has an appointment to be seen on Saturday. Patient discharged home in stable condition. Lab Data Labs: Laboratory Results - last 24 hr 04/28/21 04/28/21 04/28/21 10:34 10:45 10:45 WBC 12.1 H RBC 4.45 L Hgb 13.7 Hct 39.5 L MCV 88.8 MCH 30.8 MCHC 34.7 RDW Std Deviation 37.2 RDW Coeff of Kalee 11.6 Plt Count 333 MPV 9.1 Immature Gran % (Auto) 4.200 H Neut % (Auto) 63.7 Lymph % (Auto) 20.5 [place] % (Auto) 9.3 Eos % (Auto) 1.7 Baso % (Auto) 0.6 Absolute Neuts (auto) 7.7 Absolute Lymphs (auto) 2.48 Nucleated RBC % 0 Sodium 132 L Potassium 4.7 Chloride 97 L Carbon Dioxide 27.0 Anion Gap 8 BUN 35 H Creatinine 1.22 Estim Creat Clear Calc 66.26 Est GFR (MDRD) Af Amer 77 Est GFR (MDRD) Non-Af 63 BUN/Creatinine Ratio 28.7 H Glucose 319 H Calcium 8.9 Total Bilirubin 0.40 AST 25 ALT 74 H Alkaline Phosphatase 133 H Troponin I < 0.015 Total Protein 7.3 Albumin 3.6 Globulin 3.7 Albumin/Globulin Ratio 1.0 Urine Color Urine Clarity Urine pH Ur Specific [place] Urine Protein Urine Glucose (UA) Urine Ketones Urine Occult Blood Urine Nitrite Urine Bilirubin Urine Urobilinogen Ur Leukocyte Esterase Urine RBC Urine WBC Ur Squamous Epith Cells Urine Bacteria Urine Mucus Acetone Level POC Glucose 344 H 04/28/21 04/28/21 10:45 12:30 WBC RBC Hgb Hct MCV MCH MCHC RDW Std Deviation RDW Coeff of [place] Plt Count MPV Immature Gran % (Auto) Neut % (Auto) Lymph % (Auto) [place] % (Auto) Eos % (Auto) Baso % (Auto) Absolute Neuts (auto) Absolute Lymphs (auto) Nucleated RBC % Sodium Potassium Chloride Carbon Dioxide Anion Gap BUN Creatinine Estim Creat Clear Calc Est GFR (MDRD) Af Amer Est GFR (MDRD) Non-Af BUN/Creatinine Ratio Glucose Calcium Total Bilirubin AST ALT Alkaline Phosphatase Troponin I Total Protein Albumin Globulin Albumin/Globulin Ratio Urine Color Yellow Urine Clarity Clear Urine pH 6.0 Ur Specific [place] 1.030 Urine Protein 15 H Urine Glucose (UA) 1000 H Urine Ketones Negative Urine Occult Blood Negative Urine Nitrite Negative Urine Bilirubin Negative Urine Urobilinogen Normal Ur Leukocyte Esterase Negative Urine RBC 0 SEEN Urine WBC 0-5 SEEN Ur Squamous Epith Cells 0-5 SEEN Urine Bacteria 0 SEEN Urine Mucus 0 SEEN Acetone Level NEGATIVE POC Glucose Radiography Diagnostic Testing: Radiology Impression Head/Neck CTA 04/28/21 12:09 IMPRESSION: Normal CTA Head and neck with contrast. Electronically Signed: Alejandro Ruelas MD at 13:05 EDT , Service support , Rhythm Strip Rhythm Strip: Sinus Rhythm Rate: 95 Ectopy: None EKG Initial EKG: Attestation: I personally reviewed and interpreted this EKG as follows: Interpretation: Sinus Rhythm Comments: Normal sinus rhythm rate 95 Normal axis Normal intervals Normal ST segments Discharge Plan Triage Chief Complaint: Neuro S/Sx ED Provider: [facility] Dx/Rx/DC Orders Clinical Impression: Candidiasis of mouth, Acute hyperglycemia Instructions: Oral Thrush, ED Hyperglycemia New Susp Diabetes Prescriptions: New nystatin 100,000 unit/mL suspension 4 ml PO Q6H Qty: 60 RF: 0 metformin 500 mg tablet 500 mg PO BID Qty: 20 RF: 0 No Action enalapril maleate 20 mg tablet See Rx Instructions .ROUTE .COMPLEX Qty: 90 RF: 3 benzonatate [Tessalon Perles] 100 mg capsule 100 mg PO TID PRN (Reason: cough) Qty: 30 RF: 0 guaifenesin 1,200 mg tablet extended release 12hr 1,200 mg PO BID Qty: 20 RF: 0 dexamethasone [Decadron] 6 mg tablet 6 mg PO DAILY Qty: 4 RF: 0 acetaminophen-codeine 300-30 mg tablet 1 tab PO Q6H PRN (Reason: pain) Qty: 20 RF: 0 omeprazole 20 mg capsule,delayed release(DR/EC) 20 mg PO DAILY Qty: 30 RF: 0 pravastatin 80 mg tablet 80 mg PO QHS Qty: 30 RF: 0 Primary Care Provider: Moe Luke Referrals: Moe Luke MD [Primary Care Provider] - Activity Restrictions/Additional Instructions: Called office to follow-up on SATURDAY. Disposition Disposition: Home, self care Discharge Date/Time: 04/28/21 14:55
[2021-04-28 10:41] LABS: Bedside Glucose 344 mg/dL (70-110)
[2021-04-28] MEDS: 0.9% Normal Saline 1,000 ML 1000 ML IV (10:54)
[2021-04-28 11:05] LABS: Absolute Lymphocyte Count 2.48 X10^3/uL (0.83-4.51); Absolute Neutrophil Count 7.7 X10^3/uL (2.0-7.7); Basophil# 0.07 X10^3/uL; Basophil% 0.6 % (0-1); Eosinophil# 0.21 X10^3/uL; Eosinophils% 1.7 % (0-5); Hematocrit 39.5 % (40-54); Hemoglobin 13.7 g/dL (13.0-16.5); Lymphocyte # 2.48 X10^3/ul (0.83-4.51); Lymphocyte % 20.5 % (19-41); Mean Corp Hgb Conc 34.7 g/dL (32-36); Mean Corpuscular Hgb 30.8 pg (27.0-32.0); Mean Corpuscular Volume 88.8 fL (80-94); Mean Platelet Vol. 9.1 fl (6.2-12.0); Monocyte# 1.12 X10^3/uL; Monocyte% 9.3 % (0-10); NRBC Flagged by Analyzer 0 % (0-5); Neutrophil # 7.71 X10^3/uL (2.7-7.7); Neutrophil % 63.7 % (47-70); Platelet Count 333 K/mm3 (150-450); RBC Distribution Width CV 11.6 % (11.6-14.6); RBC Distribution Width SD 37.2 fl (35.1-43.9); Red Blood Count 4.45 M/mm3 (4.6-6.2); White Blood Count 12.1 K/mm3 (4.4-11.0)
[2021-04-28 11:12] VITALS: BP 113/75; PULSE 64; RESP 18; TEMP 36.4
[2021-04-28 11:16] LABS: AST(SGOT) 25 U/L (15-37); Alanine Aminotransfer ALT/SGPT 74 U/L (16-61); Albumin, Serum 3.6 g/dL (3.2-5.0); Alkaline Phosphatase 133 U/L (45-117); Anion Gap 8 (5-15); BUN 35 mg/dL (7-18); BUN/Creat Ratio 28.7 RATIO (10-20); Calcium,Total 8.9 mg/dL (8.5-10.1); Chloride 97 mmol/L (98-107); Creatinine, Serum 1.22 mg/dL (0.70-1.30); EST Glomerular Filtration Rate 63 mL/min (>60); Est Glom Filt Rate - Afr Amer 77 mL/min (>60); Estimated Creatinine Clearance 66.26 ml/min; Globulin 3.7 g/dL (2.2-4.2); Glucose 319 mg/dL (74-106); Potassium 4.7 mmol/L (3.5-5.1); Protein, Total 7.3 g/dL (6.4-8.2); Sodium Level 132 mmol/L (136-145)
[2021-04-28 12:00] VITALS: BP 130/91; PULSE 76; RESP 15; TEMP 36.6
--- NOTE | 2021-04-28 12:09 | CT_ITS ---
STUDY: CTA HEAD AND NECK WITH CONTRAST REASON FOR EXAM: Male, 66 years old. Blurry vision, recent covid RADIATION DOSAGE (If Supplied By Facility): CTDIvol = ( 31.22 ) mGy, DLP = ( 1642.12 ) mGycm TECHNIQUE: CT angiography was performed with a multi-detector CT scanner. Data acquisition was obtained from the skull base through the vertex following intravenous administration of IV 100mL Isovue-370. MIP images were reconstructed from the axial data set. Post-processing of the angiographic images was performed, with multiplanar reformation and 3D reconstruction. Individualized dose optimization techniques were used for this CT. COMPARISON: No relevant priors. FINDINGS: Normal bilateral petrous carotid arteries. Normal right cavernous carotid artery with a normal supraclinoid bifurcation. Normal left cavernous carotid artery with a normal supraclinoid bifurcation. Normal right A1 segments of the anterior cerebral artery. Normal left A1 segments of the anterior cerebral artery. Normal intact anterior communicating artery (ACOM). Normal bilateral A2 segments of the anterior cerebral arteries. Normal right M1 and M2 segments of the middle cerebral arteries, with a normal M1 bifurcation. Normal left M1 and M2 segments of the middle cerebral arteries, with a normal M1 bifurcation. Normal right posterior communicating artery (PCOM). Normal left posterior communicating artery (PCOM). Normal bilateral vertebral arteries. Normal basilar artery with a normal basilar bifurcation. The visualized bilateral superior cerebellar (SCA) arteries are normal. Normal bilateral P1, P2 and visualized P3 segments of the posterior cerebral arteries. There is no demonstrated aneurysm of the [place]. There is no demonstrated abnormality of the visualized brain. AORTIC ARCH: There is a mild degree of atherosclerotic calcific plaque formation of the aortic arch and great vessels arising from the aortic arch, without a hemodynamically significant stenosis. There is a normal origin of the brachiocephalic, left common carotid, and left subclavian arteries. RIGHT CAROTID ARTERIES: Normal right common carotid artery (CCA). Normal right common carotid bulb. Normal origin of the right internal carotid (ICA) artery without a hemodynamically significant stenosis. Normal visualized cervical portion of the right internal carotid artery. Normal origin of the right external carotid artery (ECA). LEFT CAROTID ARTERIES: Normal left common carotid artery (CCA). Normal left common carotid bulb. There is minimal atherosclerotic plaque formation of the origin of the left internal carotid artery with less than 50% cross sectional diameter stenosis. Normal visualized cervical portion of the left internal carotid artery. Normal origin of the left external carotid artery (ECA). VERTEBRAL ARTERIES: Normal bilateral vertebral arteries. CT/CTA Head AND Neck W/ Contrast IMPRESSION: Normal CTA Head and neck with contrast. Electronically Signed: Alejandro Ruelas MD at 13:05 EDT , Service support ,
[2021-04-28 12:40] LABS: Bacteria 0 SEEN /hpf (None Seen); Mucous, Urine 0 SEEN /hpf (<or=2+); Red Blood Cells-Urine 0 SEEN /hpf (0-5)
[2021-04-28 12:46] LABS: Color, Urine Yellow (Yellow); Glucose, Dipstick 1000 mg/dl (Normal); Ketone-Dipstick Negative (Negative); Leukocyte Esterase-Dipstick Negative /ul (Negative); Nitrite-Dipstick Negative (Negative); Occult Blood-Urine Negative /ul (Negative); Protein-Dipstick 15 mg/dl (Negative); Urine Bilirubin Dipstick Negative (Negative); Urine Clarity Clear (Clear); Urine Urobilinogen Normal (Normal)
[2021-04-28 12:56] LABS: White Blood Cells 0-5 SEEN /hpf (0-5)
[2021-04-28 12:57] LABS: Squamous Epithelial Cells - UA 0-5 SEEN /hpf (0-5)
[2021-04-28 14:47] VITALS: BP 142/84; PULSE 61; RESP 16; O2SAT 97
== END 2021-04-28 14:55 | disposition home or self-care (01) ==
PROVIDERS: Emergency Provider Emergency Medicine; PCP Internal Medicine
DX: B37.0 Candidal stomatitis (principal); E11.65 Type 2 diabetes mellitus with hyperglycemia; M19.90 Unspecified osteoarthritis, unspecified site; E78.5 Hyperlipidemia, unspecified; Z86.16 Personal history of COVID-19; Z79.899 Other long term (current) drug therapy
CPT/HCPCS: 70496; 70498; 80053; 81001; 82009; 82962; 84484; 85025; 93005; 96360; 96361; 99283; J7030; Q9967; A4216

== ENCOUNTER → 2021-04-28 | Outpatient (CLI) | payer BC, SELFPAY ==
[2021-04-28 10:05] VITALS: BMI 33.5
== END | disposition home or self-care (01) ==
LOC: LABSPEC 10:21
PROVIDERS: PCP Internal Medicine; Referring Provider Physician Assistant; Visit Provider Physician Assistant
DX: U07.1 COVID-19 (principal)
CPT/HCPCS: 87635; U0005; U0003

== ENCOUNTER → 2021-08-04 15:59 | Outpatient (CLI) | payer BC, SELFPAY ==
[2021-08-04 17:42] LABS: Hemoglobin A1c 6.7 % (3.8-5.6)
[2021-08-04 17:49] LABS: Microalbumin,Random Urine 7.2 mg/L (NO RANGE EST.); Microalbumin:Creatinine Ratio 4.4 mg/g CRE (<30 mg/g CRE)
[2021-08-04 17:53] LABS: AST(SGOT) 26 U/L (15-37); Alanine Aminotransfer ALT/SGPT 36 U/L (16-61); Albumin, Serum 4.1 g/dL (3.2-5.0); Alkaline Phosphatase 73 U/L (45-117); Anion Gap 6 (5-15); BUN 19 mg/dL (7-18); BUN/Creat Ratio 18.8 RATIO (10-20); Bilirubin, Direct 0.13 mg/dL (0.00-0.30); Calcium,Total 8.9 mg/dL (8.5-10.1); Chloride 106 mmol/L (98-107); Cholesterol 175 mg/dL (200); Creatinine, Serum 1.01 mg/dL (0.70-1.30); EST Glomerular Filtration Rate 79 mL/min (>60); Est Glom Filt Rate - Afr Amer 95 mL/min (>60); Globulin 3.3 g/dL (2.2-4.2); Glucose 104 mg/dL (74-106); High Density Lipoprotein 48 mg/dL; Potassium 4.1 mmol/L (3.5-5.1); Protein, Total 7.4 g/dL (6.4-8.2); Sodium Level 137 mmol/L (136-145); Triglycerides 174 mg/dL; Very Low Density Lipoprotein 35 mg/dL (5-40)
== END ==
PROVIDERS: PCP Family Medicine; Referring Provider Family Medicine; Visit Provider Family Medicine
DX: E11.9 Type 2 diabetes mellitus without complications (principal)
CPT/HCPCS: 36415; 80048; 80061; 80076; 82043; 82570; 83036

== ENCOUNTER 2021-08-10 13:38 | Emergency (ER) | payer BC, SELFPAY ==
[2021-08-10 13:40] VITALS: BP 164/96; PULSE 91; RESP 14; TEMP 35.8; O2SAT 97; BMI 33.2
--- NOTE | 2021-08-10 14:06 | RAD_ITS ---
STUDY: X-RAY CHEST REASON FOR EXAM: Male, 66 years old. Chest pain TECHNIQUE: PA and lateral views of the chest. COMPARISON: Comparison is made with prior study dated 04/22/2021. FINDINGS: Hyperinflation. The lungs are clear. There is no demonstrated pleural abnormality. Normal size heart. Normal mediastinum and lex. Normal visualized pulmonary arteries. There is atherosclerotic calcification of the aortic arch with tortuosity. There are diffuse degenerative changes of the visualized thoracic spine. Normal visualized ribs, clavicles, and shoulders. There is no demonstrated abnormality of the visualized soft tissue structures of the upper abdomen. RAD/Chest PA and Lateral IMPRESSION: Hyperinflation. The lungs are clear. Electronically Signed: Alejandro Ruelas MD at 14:41 EDT , Service support ,
--- NOTE | 2021-08-10 14:06 | EKG12_ITS ---
Test Reason : CHEST PAIN Blood Pressure : / mmHG Vent. Rate : 069 BPM Atrial Rate : 069 BPM P-R Int : 158 ms QRS Dur : 090 ms QT Int : 396 ms P-R-T Axes : 046 047 042 degrees QTc Int : 424 ms Normal sinus rhythm Normal ECG Confirmed by RICHELLE PALMA, SANDRA ([id number]), food editor MATHEW KELLER ([id number]) on 08/11/2021 10:20:55 A M Referred By: VIC Confirmed By:TEJAS PEOPLES MD
--- NOTE | 2021-08-10 14:07 | ED.VIS.CHEST ---
HPI History of Present Illness Chief Complaint: Chest Other Informant: patient Onset/Context/Timing Onset: Hours (7) Activity at onset: sudden and activity on onset (lifting a heavy bag at work) Timing: Continuous Quality: Positive for - (sore, like I need to stretch it out) Location: Substernal (w/ mild radiation around both sides of ribcage) Current Severity: Mild Maximum Severity: Moderate Worsened By: Movement of Arm and Movement of Torso Relieved By: Rest and Remaining Still Associated Symptoms: Negative for Nausea, Vomiting, Diaphoresis, Dyspnea, Cough, Fever, Lightheadedness, Acid Reflux and Palpitations Narrative Narrative: 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 He states sometimes he gets this discomfort, and then he does stretch it out and feels pop and then the pain goes away but not today. He states he is 66 years old and this has been occurring with the same symptoms about once a year since he was around 44 years old. He does not have a history of heart problems. He takes medications for blood pressure and Metformin. He denies any associated symptoms. He states he is wanting to make sure he is okay so he can have a note to go back to work which is what he prefers to do. They took him off of heavy lifting when he told them this occurred today. [facility] Medical History Abnormal bruising Arthritis Blurred vision Chronic back pain Diabetes Fatigue Frequent headaches Hyperlipemia Limb weakness Shoulder pain Home Medications metformin 1,000 mg tablet 1,000 mg PO BID #180 tab 05/02/21 [Rx Last Taken Unknown] nystatin 100,000 unit/mL oral suspension 4 ml PO Q6H #60 ml 05/02/21 [Rx Last Taken Unknown] enalapril maleate 20 mg tablet See Rx Instructions .ROUTE .COMPLEX #90 tab 05/16/21 [Rx Last Taken Unknown] metformin 1,000 mg tablet,extended release 24hr 1,000 mg PO QPM #90 tab 05/16/21 [Rx Last Taken Unknown] omeprazole 20 mg capsule,delayed release 20 mg PO DAILY #90 cap 05/16/21 [Rx Last Taken Unknown] pravastatin 80 mg tablet 80 mg PO QHS #90 tab 05/16/21 [Rx Last Taken Unknown] Allergy/AdvReac Type Severity Reaction Status Date / Time No Known Allergies Allergy Verified 08/10/21 13:40 Family History Mother Cancer Father Heart disease Myocardial infarction Brother Myocardial infarction Heart disease CVA (cerebral vascular accident) Sister CVA (cerebral vascular accident) Myocardial infarction Hypertension Surgical History History of appendectomy Social History Smoking Status: Never smoker how long ago did patient quit smokin alcohol intake: never substance use type: does not use what type of physical activity do you participate in: none ROS ROS ED Constitutional Constitutional ED: Denies chills or fever(s) Eyes Eyes: Denies change in vision or diplopia ENT ENT ED: Denies rhinorrhea or sore throat Cardiovascular Cardiovascular: Denies chest pain or palpitations Respiratory/Chest Respiratory/Chest: Denies cough or dyspnea Gastrointestinal Gastrointestinal: Denies abdominal pain, diarrhea, nausea or vomiting Genitourinary Genitourinary ED: Denies dysuria or hematuria Musculoskeletal Musculoskeletal: Denies back pain or neck pain Integumentary Denies abscess or rash Neurologic Neurologic: Denies headache(s), paresthesias or weakness Psychiatric Psychiatric: Denies anxiety or suicidal thoughts EXAM Physical Exam Const Vital Signs: 08/10/21 13:40 Temperature 96.5 F L Temperature Source Temporal Pulse Rate 91 Respiratory Rate 14 Blood Pressure 164/96 H Blood Pressure Mean 118 Pulse Ox 97 Oxygen Delivery Method Room Air Positive well nourished and well developed General Appearance ED: well developed and NAD HEENT Reports moist mucous membranes normocephalic and atraumatic Eyes PERRL and EOMs intact bilaterally Neck full ROM and supple Resp normal respiratory effort and clear to auscultation bilaterally Cardio regular rate, regular rhythm and no murmurs GI non-tender and non-distended Auscultation: normoactive bowel sounds Palpation: soft Back/Spine no CVA tenderness General Back: other FROM Extremity normal to inspection General Extremety ED: Negative for edema, pulses abnormal or tenderness General Extremity: Negative for edema or pulses abnormal Neuro oriented x3, CN's II-XII intact bilaterally and no sensory deficits noted Sensorium / Orientation: awake and alert Motor Exam: strength 5/5 throughout Skin no rashes or lesions noted and no wounds Heart Score History: Slightly/Non-Suspicious ECG: Normal Age: >/= 65 years Risk Factors: 1 or 2 Risk Factors Troponin: </= Normal Limit Score: 3 MDM MDM MDM Narrative Medical decision making narrative: EKG, chest x-ray, troponin all normal. Patient has had this discomfort all day he feels it is musculoskeletal and given these test results, I suspect he is correct. He was given a dose of Naprosyn given a note that I feel is okay for him to return to work. If it persists I recommend he follow-up closely with his doctor he is comfortable with that plan. Lab Data Attestation: I reviewed the patient's lab results. Labs: Laboratory Results - last 24 hr 08/10/21 14:11 Troponin I High Sens 11 Radiography Diagnostic Testing: Radiology Impression Chest X-Ray 08/10/21 14:06 IMPRESSION: Hyperinflation. The lungs are clear. Electronically Signed: Alejandro Ruelas MD at 14:41 EDT , Service support , EKG Initial EKG: Attestation: I personally reviewed and interpreted this EKG as follows: Interpretation: Sinus Rhythm and No Acute Injury Pattern Comments: Normal EKG with rate 69 [place] 47 normal Discharge Plan Triage Chief Complaint: Chest Other ED Provider: George Hardy Dx/Rx/DC Orders Clinical Impression: Acute chest wall pain Instructions: ED Chest Wall Pain, Costochondritis Prescriptions: No Action metformin 1,000 mg tablet 1,000 mg PO BID Qty: 180 RF: 1 nystatin 100,000 unit/mL suspension 4 ml PO Q6H Qty: 60 RF: 0 metformin 1,000 mg tablet extended release 24hr 1,000 mg PO QPM Qty: 90 RF: 3 enalapril maleate 20 mg tablet See Rx Instructions .ROUTE .COMPLEX Qty: 90 RF: 3 pravastatin 80 mg tablet 80 mg PO QHS Qty: 90 RF: 3 omeprazole 20 mg capsule,delayed release(DR/EC) 20 mg PO DAILY Qty: 90 RF: 3 Stand Alone Forms: Work Status Form Primary Care Provider: Darrell Jolly Referrals: Darrell Jolly MD [Primary Care Provider] - 3-5 Days if not improving Disposition Disposition: Home, Self Care
[2021-08-10 14:33] LABS: Troponin-I HS 11 pg/mL (3.0-78.0)
[2021-08-10 15:30] VITALS: PULSE 88; RESP 17; O2SAT 97
[2021-08-10] MEDS: Naproxen 375 MG Tablet PO (15:47)
== END 2021-08-10 15:48 | disposition home or self-care (01) ==
PROVIDERS: Emergency Provider Emergency Medicine; PCP Family Medicine
DX: R07.89 Other chest pain (principal); M19.90 Unspecified osteoarthritis, unspecified site; E11.9 Type 2 diabetes mellitus without complications; E78.5 Hyperlipidemia, unspecified; Z79.84 Long term (current) use of oral hypoglycemic drugs
CPT/HCPCS: 71046; 84484; 93005; 99283

== ENCOUNTER 2021-11-06 03:53 | Emergency (ER) | payer BC, SELFPAY ==
[2021-11-06 03:54] VITALS: BP 168/97; PULSE 78; RESP 18; TEMP 36.6; O2SAT 98; BMI 33.5
[2021-11-06 03:56] VITALS: BP 168/97; PULSE 78; RESP 18; TEMP 36.6; O2SAT 98
--- NOTE | 2021-11-06 04:00 | RAD_ITS ---
STUDY: X-RAY - RIGHT FOOT CLINICAL: Male, 66 years old. puncture pain TECHNIQUE: 3 view(s) of the foot. COMPARISON: None. FINDINGS: No acute fracture or dislocation. There is degenerative changes of the first carpometacarpal joint. No radiopaque foreign bodies visualized. Calcaneal spurring is present. The soft tissue structures are unremarkable. RAD/Foot min 3 Views IMPRESSION: No acute fracture or radiopaque foreign body visualized. Electronically Signed: Gian Du MD at 4:32 EST Tel , Service support ,
--- NOTE | 2021-11-06 04:01 | ED.VIS.LOWEX ---
HPI History of Present Illness Chief Complaint: Wound Informant: patient Narrative Narrative: Patient presents with discomfort in the bottom of his right foot. He states that yesterday he stepped on a nail. This was inside his house. He was cleaning up boards. He states the nail was clean. The total nail length was about an inch. It was poking out from a board. Mild bleeding. He states it just hurts when he puts weight on it. There is been no drainage. No fevers chills sweats. No swelling. Weightbearing makes it worse and rest makes it better. Last tetanus is unknown. Patient initially denied any medical problems. However, with detailed questioning I find out he actually is on medicines for high blood pressure, high cholesterol and diabetes. He had initially denied having diabetes when specifically asked. He now does state that his recent hemoglobin A1c was 7.1. This was within the last 2 weeks. [facility] Medical History Abnormal bruising Arthritis Blurred vision Chronic back pain COVID Diabetes Fatigue Frequent headaches Hyperlipemia Hypertension Limb weakness Shoulder pain Home Medications nystatin 100,000 unit/mL oral suspension 4 ml PO Q6H #60 ml 05/02/21 [Rx Last Taken Unknown] enalapril maleate 20 mg tablet See Rx Instructions .ROUTE .COMPLEX #90 tab 05/16/21 [Rx Last Taken Unknown] omeprazole 20 mg capsule,delayed release 20 mg PO DAILY #90 cap 05/16/21 [Rx Last Taken Unknown] pravastatin 80 mg tablet 80 mg PO QHS #90 tab 05/16/21 [Rx Last Taken Unknown] amoxicillin-pot clavulanate [Augmentin] 1 tab PO BID #20 tab 11/06/21 [Rx Last Taken Unknown] glimepiride 1 mg PO DAILY 11/06/21 [History Last Taken Unknown] Allergy/AdvReac Type Severity Reaction Status Date / Time No Known Allergies Allergy Verified 08/10/21 13:40 Family History Mother Cancer Father Heart disease Myocardial infarction Brother Myocardial infarction Heart disease CVA (cerebral vascular accident) Sister CVA (cerebral vascular accident) Myocardial infarction Hypertension Surgical History History of appendectomy Social History Smoking Status: Never smoker how long ago did patient quit smokin alcohol intake: never substance use type: does not use what type of physical activity do you participate in: none ROS ROS ED Constitutional Constitutional ED: Denies chills or fever(s) Gastrointestinal Gastrointestinal: Denies nausea or vomiting Musculoskeletal Musculoskeletal: Reports other Details: Right foot pain. Please see history of present illness. Integumentary Reports other Details: Puncture to bottom of right foot. No drainage. No erythema. No swelling. Neurologic Neurologic: Reports other Details: No known history of diabetic neuropathy. ; Denies paresthesias Endocrine Endocrinology: Denies polydipsia or polyuria Hematologic/Lymphatic Hematologic/Lymphatic: Reports other Details: Not on any anticoagulation. ; Denies easy bleeding or easy bruising EXAM Physical Exam Const Vital Signs: 11/06/21 03:54 11/06/21 03:56 Temperature 97.9 F 97.9 F Temperature Source Temporal Temporal Pulse Rate 78 78 Respiratory Rate 18 18 Blood Pressure 168/97 H 168/97 H Blood Pressure Mean 120 120 Pulse Ox 98 98 Oxygen Delivery Method Room Air Room Air Positive well nourished and well developed General Appearance ED: well developed and NAD HEENT Reports moist mucous membranes normocephalic Neck full ROM Chest Wall inspection of chest normal Resp normal respiratory effort and clear to auscultation bilaterally Cardio regular rate Extremity Extremity Narrative: Patient does have wound consistent with a small puncture wound on the bottom of his right foot. There is a diameter of approximately 2-1/2 cm around this that has some contusion. There is no erythema. There is no swelling. There is no warmth. It is mildly tender at the spot. There is no lymphangitic streaking up the leg. Neuro oriented x3 Sensorium / Orientation: alert Skin Skin Narrative: See above. Trauma: puncture MDM MDM MDM Narrative Medical decision making narrative: Blood glucose was 146. Three-view x-ray of the foot was looked at by me. There is no sign of foreign body. I do not see any irregularity or involvement or fracture of bones. There is no gas or air noted in the tissue. Patient did stepped on a nail. He was inside his house at the time. He was not wearing shoes. He was wearing a cloth type slipper. He does have a slightly delayed presentation. We will start him on Augmentin. We had a talk about signs and symptoms to look for with worsening. These would include pain, swelling, drainage, redness, fever, red streak up his legs, nausea vomiting or any other concerns. It was explained that he still could worsen and he may need admission to the hospital in the future. He should check in with his physician in the next couple days for recheck to make sure this looks well. Lab Data Attestation: I reviewed the patient's lab results. Labs: Laboratory Results - last 24 hr 11/06/21 04:04 POC Glucose 146 H Discharge Plan Triage Chief Complaint: Wound ED Provider: Lorenzo Dubois Dx/Rx/DC Orders Clinical Impression: Puncture wound of foot, right Instructions: ED Puncture Wound (Foot) Prescriptions: New amoxicillin-pot clavulanate [Augmentin] 875-125 mg tablet 1 tab PO BID Qty: 20 RF: 0 No Action nystatin 100,000 unit/mL suspension 4 ml PO Q6H Qty: 60 RF: 0 enalapril maleate 20 mg tablet See Rx Instructions .ROUTE .COMPLEX Qty: 90 RF: 3 pravastatin 80 mg tablet 80 mg PO QHS Qty: 90 RF: 3 omeprazole 20 mg capsule,delayed release(DR/EC) 20 mg PO DAILY Qty: 90 RF: 3 glimepiride 1 mg tablet 1 mg PO DAILY RF: 0 Primary Care Provider: Darrell Jolly Referrals: Darrell Jolly MD [Primary Care Provider] - 2 Days for wound check Disposition Disposition: Home, Self Care
[2021-11-06 04:11] LABS: Bedside Glucose 146 mg/dL (70-110)
[2021-11-06] MEDS: Amox/Clavulanate 875 MG Tablet PO (04:42)
[2021-11-06] MEDS: Diphth,Pertuss(Acell),Tet Vac 0.5 ML Vial IM (04:42)
== END 2021-11-06 05:11 | disposition home or self-care (01) ==
PROVIDERS: Emergency Provider Emergency Medicine; PCP Family Medicine
DX: S91.331A Puncture wound without foreign body, right foot, initial encounter (principal); W22.8XXA Striking against or struck by other objects, initial encounter; Y92.9 Unspecified place or not applicable; E11.9 Type 2 diabetes mellitus without complications; E78.00 Pure hypercholesterolemia, unspecified; E78.5 Hyperlipidemia, unspecified; I10 Essential (primary) hypertension; G89.29 Other chronic pain; M19.90 Unspecified osteoarthritis, unspecified site; Z87.891 Personal history of nicotine dependence
CPT/HCPCS: 73630; 82962; 90471; 90715; 99283

== ENCOUNTER → 2022-07-27 | Outpatient (CLI) | payer BC, SELFPAY ==
[2022-07-27 10:36] LABS: Anion Gap 8 (5-15); BUN 23 mg/dL (7-18); BUN/Creat Ratio 20.4 RATIO (10-20); Chloride 104 mmol/L (98-107); Cholesterol 171 mg/dL (200); Creatinine, Serum 1.13 mg/dL (0.70-1.30); EST Glomerular Filtration Rate 69 mL/min (>60); Est Glom Filt Rate - Afr Amer 83 mL/min (>60); Glucose 139 mg/dL (74-106); High Density Lipoprotein 40 mg/dL; Potassium 4.4 mmol/L (3.5-5.1); Sodium Level 138 mmol/L (136-145); Thyroid Stim Hormone (TSH) 1.54 uIU/mL (0.358-3.74); Triglycerides 218 mg/dL; Very Low Density Lipoprotein 44 mg/dL (5-40)
== END | disposition home or self-care (01) ==
LOC: MFPLAB 08:02
PROVIDERS: PCP Family Medicine; Referring Provider Family Medicine; Visit Provider Family Medicine
DX: E11.9 Type 2 diabetes mellitus without complications (principal); E66.9 Obesity, unspecified
CPT/HCPCS: 36415; 80048; 80061; 84443

== ENCOUNTER → 2022-12-24 | Outpatient (CLI) | payer BC, SELFPAY ==
[2022-12-24 18:19] LABS: Anion Gap 9 (5-15); BUN 20 mg/dL (7-18); BUN/Creat Ratio 19.4 RATIO (10-20); Calcium,Total 9.1 mg/dL (8.5-10.1); Chloride 105 mmol/L (98-107); Cholesterol 170 mg/dL (200); Creatinine, Serum 1.03 mg/dL (0.70-1.30); EST Glomerular Filtration Rate 77 mL/min (>60); Est Glom Filt Rate - Afr Amer 93 mL/min (>60); Glucose 105 mg/dL (74-106); High Density Lipoprotein 48 mg/dL; Potassium 4.2 mmol/L (3.5-5.1); Sodium Level 138 mmol/L (136-145); Triglycerides 251 mg/dL; Very Low Density Lipoprotein 50 mg/dL (5-40)
[2022-12-24 19:22] LABS: Hemoglobin A1c 6.8 % (3.8-5.6)
== END | disposition home or self-care (01) ==
LOC: MFPLAB 16:28
PROVIDERS: PCP Family Medicine; Visit Provider Family Medicine
DX: I10 Essential (primary) hypertension (principal); E11.9 Type 2 diabetes mellitus without complications
CPT/HCPCS: 36415; 80048; 80061; 83036

== ENCOUNTER 2023-01-17 02:01 | Emergency (ER) | payer BC, SELFPAY ==
[2023-01-17 02:02] VITALS: BP 163/93; PULSE 87; RESP 18; TEMP 36.6; O2SAT 97; BMI 35.2
--- NOTE | 2023-01-17 02:29 | EDS_ITS ---
HPI History of Present Illness Chief Complaint: Diarrhea Narrative Narrative: Patient is a 67-year-old male with past medical history of type 2 diabetes and hyperlipidemia. He states he went to bed Saturday night feeling normal then awoke around 1 in the morning with generalized abdominal discomfort feeling like he had to have a bowel movement. He states when he did this it was watery/diarrhea. He states as time passed he had increasing abdominal discomfort as well as increasing bouts of diarrhea. He reports that there has been no sick contacts and that his does not have any similar symptoms. He also denies any recent antibiotic use travel outside the country or livestock exposure. He states he saw an urgent care provider and was advised to take [id number] Imodium. He states he did this but there was no improvement of his symptoms and secondary to this he comes in for evaluation. Patient denies any history of ulcerative colitis Crohn's disease or IBS [facility] Medical History Abdominal pain Abnormal bruising Arthritis Blurred vision Chronic back pain COVID Diabetes Diarrhea Fatigue Frequent headaches Hyperlipemia Hypertension Limb weakness Shoulder pain Home Medications nystatin 100,000 unit/mL oral suspension 4 ml PO Q6H #60 mL 05/02/21 [Rx Last Taken Unknown] enalapril maleate 20 mg tablet See Rx Instructions .Route .COMPLEX #90 tabs 05/16/21 [Rx Last Taken Unknown] omeprazole 20 mg capsule,delayed release 20 mg PO DAILY #90 caps 05/16/21 [Rx Last Taken Unknown] pravastatin 80 mg tablet 80 mg PO QHS #90 tabs 05/16/21 [Rx Last Taken Unknown] amoxicillin 875 mg-potassium clavulanate 125 mg tablet (Augmentin) 1 tab PO BID #20 tabs 11/06/21 [Rx Last Taken Unknown] glimepiride 1 mg tablet 1 mg PO DAILY 11/06/21 [History Last Taken Unknown] dicyclomine 20 mg tablet 20 mg PO 4X/DAY PRN PRN Abdominal bloating/spasm #28 tabs 01/17/23 [Rx Last Taken Unknown] diphenoxylate-atropine 2.5 mg-0.025 mg tablet (Lomotil) 1 tab PO 4X/DAY PRN PRN diarrhea 5 days #20 tabs 01/17/23 [Rx Last Taken Unknown] ondansetron 4 mg disintegrating tablet 4 mg PO TID PRN nausea and vomiting #21 tabs 01/17/23 [Rx Last Taken Unknown] Allergy/AdvReac Type Severity Reaction Status Date / Time No Known Allergies Allergy Verified 01/17/23 02:05 Family History Mother Cancer Father Heart disease Myocardial infarction Brother Myocardial infarction Heart disease CVA (cerebral vascular accident) Sister CVA (cerebral vascular accident) Myocardial infarction Hypertension Surgical History History of appendectomy Social History Smoking Status: Never smoker how long ago did patient quit smokin alcohol intake: never substance use type: does not use what type of physical activity do you participate in: none ROS ROS ED Constitutional Constitutional ED: Denies chills or fever(s) ENT ENT ED: Denies sore throat Cardiovascular Cardiovascular: Denies chest pain Respiratory/Chest Respiratory/Chest: Denies cough or dyspnea Gastrointestinal Gastrointestinal: Reports abdominal pain, diarrhea and nausea; Denies vomiting Genitourinary Genitourinary ED: Denies dysuria or hematuria Musculoskeletal Musculoskeletal: Reports myalgias Integumentary Denies rash Neurologic Neurologic: Denies headache(s) Hematologic/Lymphatic Hematologic/Lymphatic: Denies easy bleeding or easy bruising EXAM Physical Exam Const Vital Signs: 01/17/23 02:02 Temperature 97.8 F Temperature Source Temporal Pulse Rate 87 Respiratory Rate 18 Blood Pressure 163/93 H Blood Pressure Mean 116 Pulse Ox 97 Oxygen Delivery Method Room Air Positive well nourished, well developed and obese General Appearance ED: well developed Nutritional Appearance: obese HEENT HEENT Narrative: Mucous membranes are slightly dry and tacky without tongue or lip swelling oral lesions airway edema or compromise or signs of infection in the posterior pharynx Eyes PERRL and EOMs intact bilaterally General Eye ED: Negative for scleral icterus Neck supple Resp normal respiratory effort and clear to auscultation bilaterally Cardio regular rate and regular rhythm Rate: other Other Details: Radial pulses are plus 2 out of 4 bilaterally are equal and symmetric GI non-tender GI Narrative: Abdomen is soft with slight distention and hyperactive bowel sounds. No voluntary guarding or rigidity or pain on palpation. No pulsatile mass or fluid wave Auscultation: hyperactive bowel sounds Palpation: soft Extremity normal to inspection Neuro oriented x3 and CN's II-XII intact bilaterally Sensorium / Orientation: alert Psych mental status grossly normal Skin no rashes or lesions noted Skin Narrative: Skin turgor is slightly increased General Skin Exam: Negative for jaundice MDM MDM MDM Narrative Medical decision making narrative: Patient presented to the ER slightly hypertensive but has a past medical history of this and otherwise with stable vitals. He reported 2 to 3 days of abdominal discomfort with bouts of nausea and loose stool/diarrhea. His history and exam is consistent with a viral stomach infection but in order to ensure there is no signs of acute pancreatitis gallbladder dysfunction electrolyte derangement acute kidney injury or possibly DKA or HHS basic blood work was obtained. Labs revealed no clinically significant findings. Patient was given IV fluids as well as Lomotil and Bentyl and did have improvement of symptoms. He had no bouts of vomiting or loose stool/diarrhea while in the ER. Also as he has no risk factors for an infectious diarrhea such as E. coli or Salmonella or Shigella I do not feel there is need for stool sample. The plan of care was discussed with the patient and as he reports feeling better and we prescribe similar medications for home he feels comfortable being discharged at this time History & Record Review Discussion w/independent historian: Patient Lab Data Attestation: I reviewed the patient's lab results. Labs: Laboratory Results - last 24 hr 01/17/23 01/17/23 02:30 02:30 WBC 6.0 RBC 4.13 L Hgb 12.9 L Hct 37.6 L MCV 91.0 MCH 31.2 MCHC 34.3 RDW Std Deviation 39.9 RDW Coeff of Kalee 12.0 Plt Count 186 MPV 8.9 Immature Gran % (Auto) 0.300 Neut % (Auto) 54.8 Lymph % (Auto) 23.5 [place] % (Auto) 17.0 H Eos % (Auto) 3.7 Baso % (Auto) 0.7 Absolute Neuts (auto) 3.3 Absolute Lymphs (auto) 1.40 Nucleated RBC % 0 Sodium 136 Potassium 3.9 Chloride 105 Carbon Dioxide 22.0 Anion Gap 9 BUN 19 H Creatinine 1.12 Estim Creat Clear Calc 71.21 Est GFR (MDRD) Af Amer 84 Est GFR (MDRD) Non-Af 70 BUN/Creatinine Ratio 17.0 Glucose 207 H Calcium 8.4 L Total Bilirubin 0.40 Direct Bilirubin 0.08 AST 18 ALT 29 Alkaline Phosphatase 107 Total Protein 7.0 Albumin 3.7 Globulin 3.3 Lipase 81 Discharge Plan Triage Chief Complaint: Diarrhea ED Provider: Tom Yanez Dx/Rx/DC Orders Clinical Impression: Nausea vomiting and diarrhea, Mild dehydration, Hypertension, Type 2 diabetes mellitus Instructions: ED Gastroenteritis, Viral (Adult) Prescriptions: New dicyclomine 20 mg tablet 20 mg PO 4X/DAY PRN PRN (Reason: Abdominal bloating/spasm) Qty: 28 0RF ondansetron 4 mg tablet,disintegrating 4 mg PO TID PRN (Reason: nausea and vomiting) Qty: 21 0RF diphenoxylate-atropine [Lomotil] 2.5-0.025 mg tablet 1 tab PO 4X/DAY PRN PRN (Reason: diarrhea) 5 Days Qty: 20 0RF No Action nystatin 100,000 unit/mL suspension 4 ml PO Q6H Qty: 60 0RF Rx Instructions: swish and swallow enalapril maleate 20 mg tablet See Rx Instructions .ROUTE .COMPLEX Qty: 90 3RF Dose Instruction: TAKE 1 TABLET DAILY Rx Instructions: TAKE 1 TABLET DAILY pravastatin 80 mg tablet 80 mg PO QHS Qty: 90 3RF omeprazole 20 mg capsule,delayed release(DR/EC) 20 mg PO DAILY Qty: 90 3RF glimepiride 1 mg tablet 1 mg PO DAILY Label Comments: Take 1 tablet by mouth daily amoxicillin-pot clavulanate [Augmentin] 875-125 mg tablet 1 tab PO BID Qty: 20 0RF Primary Care Provider: Darrell Jolly Referrals: Darrell Jolly MD [Primary Care Provider] - Activity Restrictions/Additional Instructions: Your history and exam is consistent with a viral stomach infection. This will last 3 to 7 days on average. Please keep yourself well-hydrated and take the medication as directed to help control symptoms. If you have any further concerns please return to the ER for repeat evaluation Disposition Disposition: Home, Self Care
[2023-01-17] MEDS: 0.9% Normal Saline 1,000 ML 999 ML IV (02:30)
[2023-01-17] MEDS: Diphenoxylate/Atrop 1 Tablet 2 TABLET PO (02:34)
[2023-01-17] MEDS: Dicyclomine 20 MG/2 ML Vial IM (02:35)
[2023-01-17 02:36] LABS: Absolute Neutrophil Count 3.3 X10^3/uL (2.0-7.7); Basophil# 0.04 X10^3/uL; Basophil% 0.7 % (0-1); Eosinophil# 0.22 X10^3/uL; Eosinophils% 3.7 % (0-5); Hematocrit 37.6 % (40-54); Hemoglobin 12.9 g/dL (13.0-16.5); Lymphocyte % 23.5 % (19-41); Mean Corp Hgb Conc 34.3 g/dL (32-36); Mean Corpuscular Hgb 31.2 pg (27.0-32.0); Mean Platelet Vol. 8.9 fl (6.2-12.0); Monocyte# 1.01 X10^3/uL; NRBC Flagged by Analyzer 0 % (0-5); Neutrophil # 3.26 X10^3/uL (2.7-7.7); Neutrophil % 54.8 % (47-70); Platelet Count 186 K/mm3 (150-450); RBC Distribution Width SD 39.9 fl (35.1-43.9); Red Blood Count 4.13 M/mm3 (4.6-6.2)
[2023-01-17 02:54] LABS: AST(SGOT) 18 U/L (15-37); Alanine Aminotransfer ALT/SGPT 29 U/L (16-61); Albumin, Serum 3.7 g/dL (3.2-5.0); Alkaline Phosphatase 107 U/L (45-117); Anion Gap 9 (5-15); BUN 19 mg/dL (7-18); Bilirubin, Direct 0.08 mg/dL (0.00-0.30); Calcium,Total 8.4 mg/dL (8.5-10.1); Chloride 105 mmol/L (98-107); Creatinine, Serum 1.12 mg/dL (0.70-1.30); EST Glomerular Filtration Rate 70 mL/min (>60); Est Glom Filt Rate - Afr Amer 84 mL/min (>60); Estimated Creatinine Clearance 71.21 ml/min; Globulin 3.3 g/dL (2.2-4.2); Glucose 207 mg/dL (74-106); Lipase 81 U/L (73-393); Potassium 3.9 mmol/L (3.5-5.1); Sodium Level 136 mmol/L (136-145)
[2023-01-17 03:55] VITALS: BP 154/60; PULSE 82; RESP 16
== END 2023-01-17 03:57 | disposition home or self-care (01) ==
PROVIDERS: Emergency Provider Emergency Medicine; PCP Family Medicine; Visit Provider Emergency Medicine
DX: R19.7 Diarrhea, unspecified (principal); E11.9 Type 2 diabetes mellitus without complications; R11.2 Nausea with vomiting, unspecified; E78.5 Hyperlipidemia, unspecified; E86.0 Dehydration; I10 Essential (primary) hypertension; R10.84 Generalized abdominal pain; E66.9 Obesity, unspecified
CPT/HCPCS: 80048; 80076; 83690; 85025; 96360; 96372; 99283; J7030; A4216

== ENCOUNTER 2023-05-27 06:17 | Emergency (ER) | payer BC, MEDICARE, SELFPAY ==
[2023-05-27 06:19] VITALS: BP 166/90; PULSE 71; RESP 15; TEMP 36.8; O2SAT 96; BMI 34.2
[2023-05-27 06:25] VITALS: BMI 34.2
--- NOTE | 2023-05-27 07:01 | EX.ED.DYSGE1 ---
HPI History of Present Illness Chief Complaint: Neuro S/Sx Informant: patient and spouse/S.O. Narrative Narrative: Patient is a 68-year-old male with past medical history of hypertension hyperlipidemia and diabetes. He states he awoke Saturday morning with left-sided facial weakness and mild droop. He states that he had difficulty drinking his coffee but he was ultimately unfazed by this fact. He states that he got up this morning and noticed increased facial weakness and numbness with now slurred speech secondary to the weakness. He states that he went to work because otherwise he felt normal and once he got there his boss told him you look like you are having a stroke and had him go to the ER for evaluation. [facility] Medical History Abdominal pain Abnormal bruising Arthritis Blurred vision Chronic back pain COVID Diabetes Diarrhea Fatigue Frequent headaches Hyperlipemia Hypertension Limb weakness Shoulder pain Home Medications nystatin 100,000 unit/mL oral suspension 4 ml PO Q6H #60 mL 05/02/21 [Rx Last Taken Unknown] enalapril maleate 20 mg tablet See Rx Instructions .Route .COMPLEX #90 tabs 05/16/21 [Rx Last Taken Unknown] omeprazole 20 mg capsule,delayed release 20 mg PO DAILY #90 caps 05/16/21 [Rx Last Taken Unknown] pravastatin 80 mg tablet 80 mg PO QHS #90 tabs 05/16/21 [Rx Last Taken Unknown] amoxicillin 875 mg-potassium clavulanate 125 mg tablet (Augmentin) 1 tab PO BID #20 tabs 11/06/21 [Rx Last Taken Unknown] glimepiride 1 mg tablet 1 mg PO DAILY 11/06/21 [History Last Taken Unknown] dicyclomine 20 mg tablet 20 mg PO 4X/DAY PRN PRN Abdominal bloating/spasm #28 tabs 01/17/23 [Rx Last Taken Unknown] diphenoxylate-atropine 2.5 mg-0.025 mg tablet (Lomotil) 1 tab PO 4X/DAY PRN PRN diarrhea 5 days #20 tabs 01/17/23 [Rx Last Taken Unknown] ondansetron 4 mg disintegrating tablet 4 mg PO TID PRN nausea and vomiting #21 tabs 01/17/23 [Rx Last Taken Unknown] acyclovir 400 mg tablet 1 tab PO 5X/DAY 10 days #50 tabs 05/27/23 [Rx Last Taken Unknown] artificial tears(hypromellose) 0.5 % eye drops 2 drp LEFT EYE Q4H 7 days #15 mL 05/27/23 [Rx Last Taken Unknown] prednisone 10 mg tablet 10 mg PO DAILY #10 tabs 05/27/23 [Rx Last Taken Unknown] prednisone 20 mg tablet 60 mg (3 x 20 mg) PO DAILY 6 days #18 TABLETS 05/27/23 [Rx Last Taken Unknown] Allergy/AdvReac Type Severity Reaction Status Date / Time No Known Allergies Allergy Verified 01/17/23 02:05 Family History Mother Cancer Father Heart disease Myocardial infarction Brother Myocardial infarction Heart disease CVA (cerebral vascular accident) Sister CVA (cerebral vascular accident) Myocardial infarction Hypertension Surgical History History of appendectomy Social History Smoking Status: Never smoker how long ago did patient quit smokin alcohol intake: never substance use type: does not use what type of physical activity do you participate in: none ROS ROS ED Constitutional Constitutional ED: Denies chills or fever(s) Eyes Eyes: Reports other Details: Positive increased tearing ENT ENT ED: Denies sore throat Cardiovascular Cardiovascular: Denies chest pain Respiratory/Chest Respiratory/Chest: Denies cough or dyspnea Gastrointestinal Gastrointestinal: Denies abdominal pain, diarrhea, nausea or vomiting Genitourinary Genitourinary ED: Denies dysuria Musculoskeletal Musculoskeletal: Denies myalgias Integumentary Denies rash Neurologic Neurologic: Reports paresthesias and weakness; Denies headache(s) Hematologic/Lymphatic Hematologic/Lymphatic: Denies easy bleeding or easy bruising EXAM Physical Exam Const Vital Signs: 05/27/23 06:19 Temperature 98.2 F Temperature Source Oral Pulse Rate 71 Respiratory Rate 15 Blood Pressure 166/90 H Blood Pressure Mean 115 Pulse Ox 96 Oxygen Delivery Method Room Air Positive well nourished and well developed General Appearance ED: well developed HEENT Reports moist mucous membranes Eyes PERRL and EOMs intact bilaterally Eyes Narrative: Increased tearing of the left eye otherwise normal Neck supple Neck Narrative: No nuchal rigidity or meningeal signs present Resp normal respiratory effort and clear to auscultation bilaterally Cardio regular rate and regular rhythm Rate: other Other Details: Radial pulses are plus 2 out of 4 bilaterally are equal and symmetric Extremity normal to inspection Neuro oriented x3 Neuro Narrative: Patient has left-sided facial paralysis with droop of the lip and chin. He is unable to close the left eye fully. There is no sparing of the forehead. Patient does have mild slurred speech but this is secondary to facial weakness and not dysarthria. Otherwise no truncal ataxia no dysmetria or pronator drift. Sensorium / Orientation: alert Psych mental status grossly normal Skin no rashes or lesions noted MDM MDM MDM Narrative Medical decision making narrative: The patient arrived to the ER hypertensive but has a past medical history of this. He reported that he awoke with symptoms approximately 24 hours ago on Saturday and is outside any type of stroke window. However after performing my physical exam and history as he has complete left-sided facial paralysis but no other symptoms this is most consistent with Armstrong's palsy. Therefore at this time I do not feel there is need to undergo a stroke work-up as his physical exam and symptoms do not correlate with acute CVA but with Armstrong's palsy instead. This plan of care was discussed with the patient he is agreeable to it and therefore he will be placed on antivirals and steroids and artificial tears but otherwise is safe for discharge as he has no signs of acute CVA History & Record Review Discussion w/independent historian: Patient and Significant other Discharge Plan Triage Chief Complaint: Neuro S/Sx Other Complaint: Stroke Alert ED Provider: Tom Yanez Dx/Rx/DC Orders Clinical Impression: Facial paralysis/[place] palsy, hyperlipidemia, Type 2 diabetes mellitus, Hypertension Instructions: Armstrong's Palsy Prescriptions: New acyclovir 400 mg tablet 1 tab PO 5X/DAY 10 Days Qty: 50 0RF prednisone 20 mg tablet 60 mg PO DAILY 6 Days Qty: 18 0RF prednisone 10 mg tablet 10 mg PO DAILY Qty: 10 0RF Rx Instructions: 4 pills po day 7 3 pills po day 8 2 pills po day 9 1 pill po day 10 artificial tears(hypromellose) 0.5 % drops 2 drp LEFT EYE Q4H 7 Days Qty: 15 0RF No Action nystatin 100,000 unit/mL suspension 4 ml PO Q6H Qty: 60 0RF Rx Instructions: swish and swallow enalapril maleate 20 mg tablet See Rx Instructions .ROUTE .COMPLEX Qty: 90 3RF Dose Instruction: TAKE 1 TABLET DAILY Rx Instructions: TAKE 1 TABLET DAILY pravastatin 80 mg tablet 80 mg PO QHS Qty: 90 3RF omeprazole 20 mg capsule,delayed release(DR/EC) 20 mg PO DAILY Qty: 90 3RF glimepiride 1 mg tablet 1 mg PO DAILY Patient Comments: Take 1 tablet by mouth daily amoxicillin-pot clavulanate [Augmentin] 875-125 mg tablet 1 tab PO BID Qty: 20 0RF dicyclomine 20 mg tablet 20 mg PO 4X/DAY PRN PRN (Reason: Abdominal bloating/spasm) Qty: 28 0RF ondansetron 4 mg tablet,disintegrating 4 mg PO TID PRN (Reason: nausea and vomiting) Qty: 21 0RF diphenoxylate-atropine [Lomotil] 2.5-0.025 mg tablet 1 tab PO 4X/DAY PRN PRN (Reason: diarrhea) 5 Days Qty: 20 0RF Primary Care Provider: Darrell Jolly Referrals: Darrell Jolly MD [Primary Care Provider] - Activity Restrictions/Additional Instructions: Your exam today indicate you have Armstrong's palsy. To help resolve the inflammation and return to normal function take the medications as directed. Please begin with the 60 mg of steroid/prednisone daily for 6 days then transition to the 10 mg pills for the last 4 days of treatment. If you have worsening of symptoms or any further concerns please return for repeat evaluation Disposition Disposition: Home, Self Care Discharge Date/Time: 05/27/23 07:25
== END 2023-05-27 07:25 | disposition home or self-care (01) ==
PROVIDERS: Emergency Provider Emergency Medicine; PCP Family Medicine; Visit Provider Emergency Medicine
DX: G51.0 Bell's palsy (principal); E11.9 Type 2 diabetes mellitus without complications; I10 Essential (primary) hypertension; E78.5 Hyperlipidemia, unspecified
CPT/HCPCS: 99283; A4216

== ENCOUNTER → 2024-06-22 | Outpatient (CLI) | payer MEDICARE, SELFPAY ==
[2024-06-22 15:51] LABS: AST(SGOT) 19 U/L (15-37); Alanine Aminotransfer ALT/SGPT 35 U/L (16-61); Albumin, Serum 3.5 g/dL (3.2-5.0); Alkaline Phosphatase 121 U/L (45-117); Anion Gap 8 (5-15); BUN 14 mg/dL (7-18); BUN/Creat Ratio 12.4 RATIO (10-20); Calcium,Total 8.9 mg/dL (8.5-10.1); Chloride 104 mmol/L (98-107); Cholesterol 219 mg/dL (200); Creatinine, Serum 1.13 mg/dL (0.70-1.30); EST Glomerular Filtration Rate 69 mL/min (>60); Est Glom Filt Rate - Afr Amer 83 mL/min (>60); Globulin 3.4 g/dL (2.2-4.2); Glucose 351 mg/dL (74-106); High Density Lipoprotein 39 mg/dL; Potassium 4.2 mmol/L (3.5-5.1); Protein, Total 6.9 g/dL (6.4-8.2); Sodium Level 135 mmol/L (136-145); Triglycerides 329 mg/dL; Very Low Density Lipoprotein 66 mg/dL (5-40)
[2024-06-22 16:10] LABS: Microalbumin:Creatinine Ratio 69.5 mg/g CRE (<30 mg/g CRE)
[2024-06-22 19:33] LABS: Hemoglobin A1c > 14.0 % (3.8-5.6)
== END | disposition home or self-care (01) ==
PROVIDERS: PCP Family Medicine; Referring Provider Family Medicine; Visit Provider Family Medicine
DX: E11.9 Type 2 diabetes mellitus without complications (principal)
CPT/HCPCS: 36415; 80053; 80061; 82043; 82570; 83036

== ENCOUNTER → 2024-09-24 | Outpatient (CLI) | payer MEDICARE, SELFPAY ==
[2024-09-24 15:12] LABS: ALB/GLOB Ratio 1.1 RATIO (0.9-2.4); AST(SGOT) 17 U/L (15-37); Alanine Aminotransfer ALT/SGPT 28 U/L (16-61); Albumin, Serum 3.9 g/dL (3.2-5.0); Alkaline Phosphatase 118 U/L (45-117); Anion Gap 6 (5-15); BUN 10 mg/dL (7-18); BUN/Creat Ratio 9.3 RATIO (10-20); Calcium,Total 9.1 mg/dL (8.5-10.1); Chloride 101 mmol/L (98-107); Cholesterol 184 mg/dL (200); Creatinine, Serum 1.08 mg/dL (0.70-1.30); EST Glomerular Filtration Rate 72 mL/min (>60); Est Glom Filt Rate - Afr Amer 87 mL/min (>60); Globulin 3.4 g/dL (2.2-4.2); Glucose 301 mg/dL (74-106); High Density Lipoprotein 51 mg/dL; Potassium 3.9 mmol/L (3.5-5.1); Protein, Total 7.3 g/dL (6.4-8.2); Sodium Level 134 mmol/L (136-145); Triglycerides 203 mg/dL; Very Low Density Lipoprotein 41 mg/dL (5-40)
[2024-09-24 16:08] LABS: Microalbumin,Random Urine 76.2 mg/L (NO RANGE EST.); Microalbumin:Creatinine Ratio 86.9 mg/g CRE (<30 mg/g CRE)
== END | disposition home or self-care (01) ==
PROVIDERS: PCP Family Medicine; Referring Provider Family Medicine; Visit Provider Family Medicine
DX: E11.9 Type 2 diabetes mellitus without complications (principal)
CPT/HCPCS: 36415; 80053; 80061; 82043; 82570

== ENCOUNTER → 2024-12-24 | Outpatient (CLI) | payer MEDICARE, SELFPAY ==
[2024-12-24 12:52] LABS: AST(SGOT) 15 U/L (15-37); Alanine Aminotransfer ALT/SGPT 27 U/L (16-61); Albumin, Serum 3.9 g/dL (3.2-5.0); Alkaline Phosphatase 120 U/L (45-117); Anion Gap 10 (5-15); BUN 14 mg/dL (7-18); BUN/Creat Ratio 13.1 RATIO (10-20); Calcium,Total 9.1 mg/dL (8.5-10.1); Chloride 97 mmol/L (98-107); Cholesterol 202 mg/dL (200); Creatinine, Serum 1.07 mg/dL (0.70-1.30); EST Glomerular Filtration Rate 73 mL/min (>60); Est Glom Filt Rate - Afr Amer 88 mL/min (>60); Globulin 3.8 g/dL (2.2-4.2); Glucose 259 mg/dL (74-106); High Density Lipoprotein 60 mg/dL; Potassium 3.8 mmol/L (3.5-5.1); Protein, Total 7.7 g/dL (6.4-8.2); Sodium Level 133 mmol/L (136-145); Triglycerides 230 mg/dL; Very Low Density Lipoprotein 46 mg/dL (5-40)
[2024-12-24 12:57] LABS: Protein, Urine (Random) 9.8 mg/dL (<11.9); Protein:Creat Ratio 271 mg/g CRE (0-200)
== END | disposition home or self-care (01) ==
PROVIDERS: PCP Family Medicine; Referring Provider Family Medicine; Visit Provider Family Medicine
DX: E11.9 Type 2 diabetes mellitus without complications (principal)
CPT/HCPCS: 36415; 80053; 80061; 82570; 84156

== ENCOUNTER → 2025-05-06 | Outpatient (CLI) | payer MEDICARE, SELFPAY ==
--- OUTSIDE RECORDS SUMMARY | 2025-05-06 09:41 | XMS RPT_ITS | CCD ---
Author Organization [facility] Inform ion Partnership [facility] Care Team Providers Care Ssis Etl Developer Name Role Phone HEMA PALMA, DR DARRELL Angela Primary Care Physician Hema, Dr. Ramírez Primary Care Provider Heam, Dr. Ramírez Referring Provider STUART Blevins Attending Provider No, Physician Primary Care Provider Unavailabl e NO, PHYSICIAN Primary Care Unavailable RYAN SANTOS Attending Unavailable NO, PHYSICIAN Primary Care Unavailable RYAN SANTOS Referring Unavailable RYAN SANTOS Admitting Unavailable NO, PHYSICIAN Primary Care Unavailable RYAN SANTOS Referring Unavailable RYAN SANTOS Admitting Unavailable Garrido, Darrell Attending Unavailable Garrido, Darrell Primary Care Unavailable Garrido, Darrell Referring Unavailable Garrido, Darrell Attending Unavailable Garrido, Darrell Primary Care Unavailable Garrido, Darrell Referring Unavailable Garrido, Darrell Attending Unavailable Garrido, Darrell Primary Care Unavailable Garrido, Darrell Referring Unavailable Medications Current Medications Medication Drug Class(es) Dates Sig (Normalized) Sig (Original) acyclovir 400 mg oral tablet (1 source) Herpesvirus Nucleoside Analog DNA Polymerase Inhibitor, Herpes Simplex Virus Nucleoside Analog DNA Polymerase Inhibitor, Herpes Zoster Virus Nucleoside Analog DNA Polymerase Inhibitor Start: 05-27-2023 take 1 tablet by mouth five times daily Acyclovir Active 1 TABLET PO 5 TIMES DAILY 50 May 27, 2023 12:00am amLODIPine 5 mg oral tablet (1 source) Dihydropyridine Calcium Channel Elizabeth Start: 09-16-2024 amLODIPine (NORVASC) 5 MG tablet 09/16/2024 Active amoxicillin 875 mg / clavulanate 125 mg oral tablet (3 sources) Penicillin-class Antibacterial Start: 11-06-2021 take 1 tablet by mouth twice daily Amoxicillin-Pot Clavulanate (Augmentin) 875-125 mg tablet Active 1 TABLET PO TWICE A DAY November 06, 2021 1:00am atropine sulfate 0.025 mg / diphenoxylate hydrochloride 2.5 mg oral tablet (2 sources) Anticholinergic, Cholinergic Muscarinic Antagonist, Antidiarrheal Start: 01-17-2023 take 1 tablet by mouth four times daily as needed Diphenoxylate-At ropine (Lomotil) 2.5-0.025 mg tablet Active 1 TABLET PO 4 TIMES DAILY NEEDED 06 04January 17, 2023 4:40am dicyclomine hydrochloride 20 mg oral tablet (5 sources) Anticholinergic Start: 01-17-2023 take 20 mg by mouth four times daily as needed Dicyclomine Active 20 MG PO 4 TIMES DAILY NEEDED January 17, 2023 4:39am Start: 10-28-2017 End: 11-28-2017 take 20 mg by mouth every six hours as needed Dicyclomine Discontinued 20 MG PO EVERY 6 HOURS NEEDED October 28, 2017 9:41am November 28, 2017 7:16pm enalapril maleate 20 mg oral tablet (20 sources) Angiotensin Converting Enzyme Inhibitor Start: 08-24-2020 End: 05-16-2021 Enalapril Maleate Active 0 .ROUTE .COMPLEX May 16, 2021 5:09pm TAKE 1 TABLET DAILY Start: 08-25-2014 End: 08-24-2020 Enalapril Maleate Discontinu ed 0 .ROUTE .COMPLEX 90 March 16, 2020 11:22am August 24, 2020 4:03pm TAKE 1 TABLET DAILY glimepiride 1 mg oral tablet (3 sources) Sulfonylurea Start: 11-06-2021 take 1 mg by mouth once daily Glimepiride Active 1 MG PO DAILY November 06, 2021 1:00am hydroCHLOROthiazide 25 mg oral tablet (1 source) Thiazide Diuretic Start: 09-16-2024 hydroCHLOROthiazide (HYDRODIURIL) 25 MG tablet 09/16/2024 Active hypromellose 5 mg/ml ophthalmic solution (1 source) Start: 05-27-2023 Artificial Tears(Hypromellose) Active 2 DRP LEFT EYE Q4H 15 7 May 27, 2023 12:00am 24 hr metFORMIN hydrochloride 500 mg extended release oral tablet (4 sources) Biguanide Start: 09-16-2024 metFORMIN (GLUCOPHAGE-XR) 500 MG 24 hr tablet 09/16/2024 Active Start: 04-28-2021 End: 05-02-2021 Metformin Discontinued 500 M G PO TWICE A DAY April 28, 2021 12:00am May 02, 2021 4:26pm Take once a day for the first 4 days and then increase to twice a day after that nystatin [id number] unt/ml oral suspension (6 sources) Polyene Antifungal Start: 04-28-2021 End: 05-02-2021 take 1 mL by mouth every six hours Nystatin Active 4 ML PO EVERY 6 HOURS May 02, 2021 4:25pm swish and swallow omeprazole 20 mg delayed release oral capsule (20 sources) Proton Pump Inhibitor Start: 08-25-2014 End: 05-16-2021 take 1 capsule by mouth once daily before breakfast omeprazole (PRILOSEC) 20 MG capsule TAKE 1 CAPSULE BY MOUTH DAILY BEFORE BREAKFAST. 1/2 HR BEFORE MEAL. 04/29/2017 Active ondansetron 4 mg disintegrating oral tablet (5 sources) Serotonin-3 Receptor Antagonist Start: 01-17-2023 take 4 mg by mouth three times daily Ondansetron Active 4 MG PO THREE TIMES A DAY January 17, 2023 4:39am Start: 10-28-2017 End: 11-28-2017 take 8 mg by mouth every eight hours as needed Ondansetron Hcl Discontinued 8 MG PO EVERY 8 HOURS NEEDED October 28, 2017 1:00am November 28, 2017 7:16pm predniSONE 20 mg oral tablet (2 sources) Start: 05-27-2023 Prednisone Act caitlyn 10 MG PO DAILY May 27, 2023 12:00am 4 pills po day 7 3 pills po day 8 2 pills po day 9 1 pill po day 10 Start: 05-27-2023 take 60 mg by mouth once daily Prednisone Active 60 MG PO DAILY 18 May 27, 2023 12:00am traMADol hydrochloride 50 mg oral tablet (1 source) Opioid Agonist Start: 09-30-2024 End: 10-03-2024 take 1 tablet by mouth three times daily as needed for pain traMADol (ULTRAM) 50 mg tablet Indications: Rib pain on right side Take 1 (one) tablet (50 mg total) by mouth 3 (three) times a day as needed for pain . 10 tablet 09/30/2024 10/03/2024 Active Completed/Discontinued Medications Medication Drug Class(es) Dates Sig (Normalized) Sig (Original) acetaminophen 300 mg / codeine phosphate 30 mg oral tablet (3 sources) Opioid Agonist Start: 04-22-2021 End: 05-02-2021 take 1 tablet by mouth every six hours Acetaminophen-Code ine Discontinued 1 TABLET PO EVERY 6 HOURS April 22, 2021 12:00am May 02, 2021 4:02pm benzonatate 100 mg oral capsule (6 sources) Non-narcotic Antitussive Start: 08-24-2020 End: 05-02-2021 take 1 capsule by mouth three times daily Benzonatate (Tessalon Perles) 100 mg capsule Discontinued 100 MG PO THREE TIMES A DAY April 19, 2021 1:46pm May 02, 2021 4:02pm dexamethasone 6 mg oral tablet (3 sources) Corticosteroid Start: 04-22-2021 End: 05-02-2021 take 1 tablet by mouth once daily Dexamethasone (Decadron) 6 mg tablet Discontinued 6 MG PO DAILY April 22, 2021 12:00am May 02, 2021 4:02pm gabapentin 100 mg oral capsule (6 sources) Anti-epileptic Agent Start: 02-09-2020 End: 07-05-2020 take 1 capsule by mouth at bedtime Gabapentin Discontinued 0 .ROUTE .COMPLEX February 09, 2020 9:50am July 05, 2020 4:31pm TAKE 1 CAPSULE BY MOUTH AT BEDTIME Start: 12-09-2019 End: 02-09-2020 take 100 mg by mouth at bedtime Gabapentin Discontinue d 100 MG PO AT BEDTIME December 09, 2019 1:00am February 09, 2020 9:50am 12 hr guaiFENesin 1200 mg extended release oral tablet (3 sources) Start: 04-19-2021 End: 05-02-2021 take 1200 mg by mouth twice daily Guaifenesin Discontinued 1200 MG PO TWICE A DAY April 19, 2021 12:00am May 02, 2021 4:02pm pravastatin sodium 80 mg oral tablet (20 sources) HMG-CoA Reductase Inhibitor Start: 12-28-2016 End: 05-16-2021 take 80 mg by mouth at bedtime Pravastatin Discontinued 80 MG PO AT BEDTIME April 07, 2021 12:15pm May 16, 2021 5:09pm Start: 08-25-2014 End: 11-28-2017 take 40 mg by mouth at bedtime Pravastatin Discontinue d 40 MG PO AT BEDTIME August 25, 2014 12:00am November 28, 2017 7:15pm tadalafil 5 mg oral tablet (3 sources) Phosphodiesterase 5 Inhibitor Start: 08-25-2014 End: 11-28-2017 take 5 mg by mouth once daily Tadalafil Discontinued 5 MG PO DAILY August 25, 2014 12:00am November 28, 2017 7:16pm testosterone cypionate 200 mg/ml injectable solution (3 sources) Androgen Start: 08-25-2014 End: 11-28-2017 inject 400 mg by intramuscular injection every other week Testosterone Cypionate Discontinued 400 MG IM Q14D August 25, 2014 12:00am November 28, 2017 7:17pm Problems Problem Classification Problem Date Documented Da te Episodic/Chronic Abdominal pain (4 sources) Abdominal pain; Translations: [Unspecified abdominal pain] 12-06-2021 Episodic Blindness and vision defects (3 sources) Blurring of visual image; Translations: [Other visual disturbances] 05-02-2021 Episodic Cardiac dysrhythmias (3 sources) Sinus bradycardia; Translations: [Bradycardia, unspecified] 03-25-2018 Episodic Conditions associated with dizziness or vertigo (3 sources) Dizziness; Translations: [Dizziness and giddiness] 03-25-2018 Episodic Diabetes mellitus without complication (7 sources) Diabetes mellitus; Translations: [Type 2 diabetes mellitus without complications] Onset: 08-21-2020 Chronic Diabetes mellitus without complication (3 sources) Acute hyperglycemia; Translations: [Hyperglycemia, unspecified] 04-28-2021 Episodic Disorders of lipid metabolism (6 sources) Hyperlipidemia; Translations: [Hyperlipidemia, unspecified] 03-25-2018 Chronic Esophageal disorders (3 sources) Gastroesophageal reflux disease 03-25-2018 Chronic Essential hypertension (3 sources) Hypertensive disorder; Translations: [Essential (primary) hypertension] 03-25-2018 Chronic Fluid and electrolyte disorders (2 sources) Mild dehydration; Translations: [Dehydration] 01-17-2023 Episodic Headache; including migraine (3 sources) Frequent headache; Translations: [Frequent headaches] 12-09-2019 Episodic Mycoses (3 sources) Candidiasis of mouth; Translations: [Candidal stomatitis] 04-28-2021 Episodic Nausea and vomiting (2 sources) Nausea, vomiting and diarrhea; Translations: [Nausea with vomiting, unspecified] 01-17-2023 Episodic Nonspecific chest pain (10 sources) Chest pain; Translations: [Chest pain, unspecified] Onset: 2 Episodic Open wounds of extremities (3 sources) Puncture wound of right foot; Translations: [Puncture wound without foreign body, right foot, initial encounter] 11-14-2021 Episodic Osteoarthritis (3 sources) Arthritis; Translations: [Unspecified osteoarthritis, unspecified site] 03-25-2018 Chronic Other gastrointestinal disorders (3 sources) Diarrhea; Translations: [Diarrhea, unspecified] 12-06-2021 Episodic Other gastrointestinal disorders (1 source) Diarrhea, unspecified; Translations: [Diarrhea] 01-16-2023 Episodic Other lower respiratory disease (1 source) Rib pain; Translations: [Pleurodynia] 09-30-2024 Episodic Other lower respiratory disease (2 sources) Pleurodynia; Translations: [Pleurodynia] Onset: 4 Episodic Other nervous system disorders (1 source) Armstrong's palsy; Translations: [Armstrong's palsy] 05-27-2023 Episodic Other screening for suspected conditions (not mental disorders or infectious disease) (3 sources) Patient encounter status; Translations: [Encounter for screening for malignant neoplasm of colon] 08-21-2020 Episodic Other upper respiratory infections (3 sources) Laryngitis; Translations: [Acute laryngitis] 08-22-2020 Episodic Spondylosis; intervertebral disc disorders; other back problems (3 sources) Chronic back pain ; Translations: [Dorsalgia, unspecified] 03-25-2018 Episodic Sprains and strains (3 sources) Strain of muscle and/or tendon of elbow region; Translations: [Strain of unspecified muscle, fascia and tendon at shoulder and upper arm level, left arm, initial encounter] 03-18-2020 Episodic Viral infection (3 sources) Disease caused by 2019-nCoV; Translations: [COVID-19] 04-22-2021 Episodic Results Test Name Value Interpretation Reference Range Facility Comprehensive Metabolic Prof ilon 12-24-2024 Albumin [Mass/Vol] 3.9 g/dL Normal 3.2-5.0 [facility] Comment on above: Performed By: #### L 500.4050, L500.4100, L501.0900 #### [facility] [address] [place], [address] Albumin/Globulin [Mass ratio] 1.0 {ratio} Normal 0.9-2.4 [facility] Comment on above: Performed By: #### L 500.4050, L500.4100, L501.0900 #### [facility] [address] [place], [address] ALK P 120 U/L High 45-117 [facility] Comment on above: Performed By: #### L 500.4050, L500.4100, L501.0900 #### [facility] [address] [place], [address] ALT [Catalytic activity/Vol] 27 U/L Normal 16-61 [facility] Comment on above: Performed By: #### L 500.4050, L500.4100, L501.0900 #### [facility] [address] [place], [address] AST [Catalytic activity/Vol] 15 U/L Normal 15-37 [facility] Comment on above: Performed By: #### L 500.4050, L500.4100, L501.0900 #### [facility] [address] [place], [address] Bilirubin [Mass/Vol] 0.70 mg/dL Normal 0.20-1.00 [facility] Comment on above: Result Comment: For patients on eltrombopag therapy, use of Dimension [place] TBIL is not recommended. Performed By: #### L 500.4050, L500.4100, L501.0900 #### [facility] [address] [place], [address] BUN/CRE 13.1 RATIO Normal 10-20 [facility] Comment on above: Performed By: #### L 500.4050, L500.4100, L501.0900 #### [facility] [address] [place], [address] CA,Total 9.1 mg/dL Normal 8.5-10.1 [facility] Comment on above: Performed By: #### L 500.4050, L500.4100, L501.0900 #### [facility] [address] [place], [address] Chloride [Moles/Vol] 97 mmol/L Low 98-107 [facility] Comment on above: Performed By: #### L 500.4050, L500.4100, L501.0900 #### [facility] [address] [place], [address] CO2 [Moles/Vol] 26.0 mmol/L Normal 21.0-32.0 [facility] Comment on above: Performed By: #### L 500.4050, L500.4100, L501.0900 #### [facility] [address] [place], [address] Creatinine [Mass/Vol] 1.07 mg/dL Normal 0.70-1.30 [facility] Comment on above: Result Comment: The validity of the calculated GFR GFRAA in patients over 70 years has not been determined. Clinical correlation is essential. Performed By: #### L 500.4050, L500.4100, L501.0900 #### [facility] [address] [place], [address] EST GFR - AA 88 mL/min Normal >60 [facility] Comment on above: Result Comment: Afri can Kyrgyz GFR Calc Performed By: #### L 500.4050, L500.4100, L501.0900 #### [facility] [address] [place], [address] GAP 10 Normal 5-15 [facility] Comment on above: Performed By: #### L 500.4050, L500.4100, L501.0900 #### [facility] [address] [place], [address] GFR/1.73 sq M.predicted among non-blacks MDRD (S/P/Bld) [Vol rate/Area] 73 mL/min/{1.73_m2} Normal >60 [facility] Comment on above: Result Comment: Non- GFR Calc Performed By: #### L 500.4050, L500.4100, L501.0900 #### [facility] [address] [place], [address] Globulin (S) [Mass/Vol] 3.8 g/dL Normal 2.2-4.2 [facility] Comment on above: Performed By: #### L 500.4050, L500.4100, L501.0900 #### [facility] [address] [place], [address] Glucose [Mass/Vol] 259 mg/dL High 74-106 [facility] Comment on above: Result Comment: Gluc ose result greater than or equal to 200 mg/dL suggests DIABETES MELLITUS per A.D.A. criteria. Performed By: #### L 500.4050, L500.4100, L501.0900 #### [facility] [address] [place], [address] Potassium [Moles/Vol] 3.8 mmol/L Normal 3.5-5.1 [facility] Comment on above: Performed By: #### L 500.4050, L500.4100, L501.0900 #### [facility] [address] [place], [address] Sodium [Moles/Vol] 133 mmol/L Low 136-145 [facility] Comment on above: Performed By: #### L 500.4050, L500.4100, L501.0900 #### [facility] [address] [place], [address] T PROT 7.7 g/dL Normal 6.4-8.2 [facility] Comment on above: Performed By: #### L 500.4050, L500.4100, L501.0900 #### [facility] [address] [place], [address] Urea nitrogen [Mass/Vol] 14 mg/dL Normal 7-18 [facility] Comment on above: Performed By: #### L 500.4050, L500.4100, L501.0900 #### [facility] [address] [place], [address] Lipid Profileon 12-24-2024 Cholesterol [Mass/Vol] 202 mg/dL High 200 [facility] Comment on above: Result Comment: <200 mg/dL Desirable 200-240 mg/dL Borderline >240 mg/dL High Risk Performed By: #### L 500.4050, L500.4100, L501.0900 #### [facility] [address] [place], [address] Cholesterol in HDL [Mass/Vol] 60 mg/dL Normal [facility] Comment on above: Result Comment: The drugs N-Acetylcysteine and Metamizole may falsely depress this assay. Reference Range HDL <40 mg/dL Low HDL Cholesterol HDL >or= 60 mg/dL High HDL Cholesterol Performed By: #### L 500.4050, L500.4100, L501.0900 #### [facility] [address] [place], [address] Cholesterol in LDL [Mass/Vol] 96 mg/dL Normal 0-130 [facility] Comment on above: Performed By: #### L 500.4050, L500.4100, L501.0900 #### [facility] [address] [place], [address] Cholesterol in VLDL [Mass/Vol] 46 mg/dL High 5-40 [facility] Comment on above: Performed By: #### L 500.4050, L500.4100, L501.0900 #### [facility] [address] [place], [address] Triglyceride [Mass/Vol] 230 mg/dL High [facility] Comment on above: Result Comment: The drugs N-Acetylcysteine and Metamizole may falsely depress this assay. Serum Triglycerides Reference Interval Normal <150 mg/dL Borderline high 150 - 199 mg/dL High 200 - 499 mg/dL Very High > or = 500 mg/dL Performed By: #### L 500.4050, L500.4100, L501.0900 #### [facility] [address] [place], [address] Protein+Creatinine Ratio,Uri neon 12-24-2024 PROT:CRE RATIO 271 mg/g CRE High 0-200 [facility] Comment on above: Performed By: #### L 500.4050, L500.4100, L501.0900 #### [facility] [address] [place], [address] Protein (U) [Mass/Vol] 9.8 mg/dL Normal <11.9 [facility] Comment on above: Performed By: #### L 500.4050, L500.4100, L501.0900 #### [facility] [address] [place], [address] UR CREAT 36.20 mg/dL Normal NO RANGE EST. [facility] Comment on above: Performed By: #### L 500.4050, L500.4100, L501.0900 #### [facility] [address] [place], [address] XR RIBS RIGHT WITH CHEST 3+ VIEWSon 09-30-2024 XR RIBS RIGHT WITH CHEST 3+ VIEWS EXAMINATION: XR RIBS RIGHT WITH CHEST 3+ VIEWS 09/30/2024 10:07 am HISTORY: ORDERING SYSTEM PROVIDED HISTORY: Right rib pain. Coughing a lot, TECHNOLOGIST PROVIDED HISTORY: Injury/Trauma Reason for exam: pain Cancer History: u Surgery, RadiationHistory: u Encounter Type: Initial Mechanism of injury: coughing ORDERING SYSTEM PROVIDED DIAGNOSIS CODES: R07.81 Rib pain on right side COMPARISON: PA and lateral chest, 06/02/2012. FINDINGS: PA chest, AP and oblique views of right ribs in total of 6 films are provided. There are no obvious fractures or dislocations of the right ribs. No definite lytic or sclerotic lesions are seen. Other visualized osseous structures appear intact except for degenerative changes of thoracic spine. The trachea is midline. The heart size seems normal. The aorta is tortuous, atherosclerotic. There are no focal infiltrates, pleural effusions, pulmonary edema or pneumothorax. IMPRESSION: 1. No obvious fractures or dislocations of the right ribs. 2. No acute cardiopulmonary disease. [employer] Workstation ID: [id number] Dictated by: GEO OLEARY on SatSep 30, 2024 11:21:15 AM EST Transcribed by: MIR GARCIA on SatSep 30, 2024 11:46:18 AM EST Finalized by: GEO OLEARY on SatSep 30, 2024 1:03:[address] [facility] Comment on above: Order Comment: Injur y/Trauma or Illness?:Injury/Trauma How long have you had these symptoms (acute/chronic)?:Acute Reason for exam?:pain History of cancer?:u Surgeries, chemotherapy, or radiation?:u Type of Exam?:Initial Mechanism of injury?:coughing XR Ribs - right GE 3 Views a nd Chest PAon 09-30-2024 1. No obvious fractures or dislocations of the right ribs. 2. No acute cardiopulmonary disease. [facility] Workstation ID: [id number] GE RIS EXAMINATION: XR RIBS RIGHT WITH CHEST 3+ VIEWS 09/30/2024 10:07 am HISTORY: ORDERING SYSTEM PROVIDED HISTORY: Right rib pain. Coughing a lot, TECHNOLOGIST PROVIDED HISTORY: Injury/Trauma Reason for exam: pain Cancer History: u Surgery, RadiationHistory: u Encounter Type: Initial Mechanism of injury: coughing ORDERING SYSTEM PROVIDED DIAGNOSIS CODES: R07.81 Rib pain on right side COMPARISON: PA and lateral chest, 06/02/2012. FINDINGS: PA chest, AP and oblique views of right ribs in total of 6 films are provided. There are no obvious fractures or dislocations of the right ribs. No definite lytic or sclerotic lesions are seen. Other visualized osseous structures appear intact except for degenerative changes of thoracic spine. The trachea is midline. The heart size seems normal. The aorta is tortuous, atherosclerotic. There are no focal infiltrates, pleural effusions, pulmonary edema or pneumothorax. GE RIS Geo Oleary MD - 09/30/2024 EXAMINATION: XR RIBS RIGHT WITH CHEST 3+ VIEWS 09/30/2024 10:07 am HISTORY: ORDERING SYSTEM PROVIDED HISTORY: Right rib pain. Coughing a lot, TECHNOLOGIST PROVIDED HISTORY: Injury/Trauma Reason for exam: pain Cancer History: u Surgery, RadiationHistory: u Encounter Type: Initial Mechanism of injury: coughing ORDERING SYSTEM PROVIDED DIAGNOSIS CODES: R07.81 Rib pain on right side COMPARISON: PA and lateral chest, 06/02/2012. FINDINGS: PA chest, AP and oblique views of right ribs in total of 6 films are provided. There are no obvious fractures or dislocations of the right ribs. No definite lytic or sclerotic lesions are seen. Other visualized osseous structures appear intact except for degenerative changes of thoracic spine. The trachea is midline. The heart size seems normal. The aorta is tortuous, atherosclerotic. There are no focal infiltrates, pleural effusions, pulmonary edema or pneumothorax. IMPRESSION: 1. No obvious fractures or dislocations of the right ribs. 2. No acute cardiopulmonary disease. [employer] Workstation ID: [id number] [facility] Radiology Study observation (narrative) [facility] XR Ribs - right GE 3 Views a nd Chest PAOrdered By: Geo Oleary on 09-30-2024 [facility] Work Phone: Comprehensive Metabolic Prof ilon 09-24-2024 Albumin [Mass/Vol] 3.9 g/dL Normal 3.2-5.0 [facility] Comment on above: Performed By: #### L 500.6860, L502.0250, L500.4050 #### [facility] [address] [place], [address] Albumin/Globulin [Mass ratio] 1.1 {ratio} Normal 0.9-2.4 [facility] Comment on above: Performed By: #### L 500.4100, L502.0250, L500.4050 #### [facility] [address] [place], [address] ALK P 118 U/L High 45-117 [facility] Comment on above: Performed By: #### L 500.4100, L502.0250, L500.4050 #### [facility] [address] [place], [address] ALT [Catalytic activity/Vol] 28 U/L Normal 16-61 [facility] Comment on above: Performed By: #### L 500.4100, L502.0250, L500.4050 #### [facility] [address] [place], [address] AST [Catalytic activity/Vol] 17 U/L Normal 15-37 [facility] Comment on above: Performed By: #### L 500.4100, L502.0250, L500.4050 #### [facility] [address] [place], [address] Bilirubin [Mass/Vol] 0.60 mg/dL Normal 0.20-1.00 [facility] Comment on above: Result Comment: For patients on eltrombopag therapy, use of Dimension [place] TBIL is not recommended. Performed By: #### L 500.4100, L502.0250, L500.4050 #### [facility] [address] [place], [address] BUN/CRE 9.3 RATIO Low 10-20 [facility] Comment on above: Performed By: #### L 500.4100, L502.0250, L500.4050 #### [facility] [address] [place], [address] CA,Total 9.1 mg/dL Normal 8.5-10.1 [facility] Comment on above: Performed By: #### L 500.4100, L502.0250, L500.4050 #### [facility] [address] [place], [address] Chloride [Moles/Vol] 101 mmol/L Normal 98-107 [facility] Comment on above: Performed By: #### L 500.4100, L502.0250, L500.4050 #### [facility] [address] [place], [address] CO2 [Moles/Vol] 27.0 mmol/L Normal 21.0-32.0 [facility] Comment on above: Performed By: #### L 500.4100, L502.0250, L500.4050 #### [facility] [address] [place], [address] Creatinine [Mass/Vol] 1.08 mg/dL Normal 0.70-1.30 [facility] Comment on above: Result Comment: The validity of the calculated GFR GFRAA in patients over 70 years has not been determined. Clinical correlation is essential. Performed By: #### L 500.4100, L502.0250, L500.4050 #### [facility] [address] [place], [address] EST GFR - AA 87 mL/min Normal >60 [facility] Comment on above: Result Comment: Afri can Kyrgyz GFR Calc Performed By: #### L 500.4100, L502.0250, L500.4050 #### [facility] [address] [place], [address] GAP 6 Normal 5-15 [facility] Comment on above: Performed By: #### L 500.4100, L502.0250, L500.4050 #### [facility] [address] [place], [address] GFR/1.73 sq M.predicted among non-blacks MDRD (S/P/Bld) [Vol rate/Area] 72 mL/min/{1.73_m2} Normal >60 [facility] Comment on above: Result Comment: Non- GFR Calc Performed By: #### L 500.4100, L502.0250, L500.4050 #### [facility] [address] [place], [address] Globulin (S) [Mass/Vol] 3.4 g/dL Normal 2.2-4.2 [facility] Comment on above: Performed By: #### L 500.4100, L502.0250, L500.4050 #### [facility] [address] [place], [address] Glucose [Mass/Vol] 301 mg/dL High 74-106 [facility] Comment on above: Result Comment: Gluc ose result greater than or equal to 200 mg/dL suggests DIABETES MELLITUS per A.D.A. criteria. Performed By: #### L 500.4100, L502.0250, L500.4050 #### [facility] [address] [place], [address] Potassium [Moles/Vol] 3.9 mmol/L Normal 3.5-5.1 [facility] Comment on above: Performed By: #### L 500.4100, L502.0250, L500.4050 #### [facility] [address] [place], [address] Sodium [Moles/Vol] 134 mmol/L Low 136-145 [facility] Comment on above: Performed By: #### L 500.4100, L502.0250, L500.4050 #### [facility] [address] [place], [address] T PROT 7.3 g/dL Normal 6.4-8.2 [facility] Comment on above: Performed By: #### L 500.4100, L502.0250, L500.4050 #### [facility] [address] [place], [address] Urea nitrogen [Mass/Vol] 10 mg/dL Normal 7-18 [facility] Comment on above: Performed By: #### L 500.4100, L502.0250, L500.4050 #### [facility] [address] [place], [address] Lipid Profileon 09-24-2024 Cholesterol [Mass/Vol] 184 mg/dL Normal 200 [facility] Comment on above: Result Comment: <200 mg/dL Desirable 200-240 mg/dL Borderline >240 mg/dL High Risk Performed By: #### L 500.4100, L502.0250, L500.4050 #### [facility] [address] [place], [address] Cholesterol in HDL [Mass/Vol] 51 mg/dL Normal [facility] Comment on above: Result Comment: The drugs N-Acetylcysteine and Metamizole may falsely depress this assay. Reference Range HDL <40 mg/dL Low HDL Cholesterol HDL >or= 60 mg/dL High HDL Cholesterol Performed By: #### L 500.4100, L502.0250, L500.4050 #### [facility] [address] [place], [address] Cholesterol in LDL [Mass/Vol] 92 mg/dL Normal 0-130 [facility] Comment on above: Performed By: #### L 500.4100, L502.0250, L500.4050 #### [facility] [address] [place], [address] Cholesterol in VLDL [Mass/Vol] 41 mg/dL High 5-40 [facility] Comment on above: Performed By: #### L 500.4100, L502.0250, L500.4050 #### [facility] [address] [place], [address] Triglyceride [Mass/Vol] 203 mg/dL High [facility] Comment on above: Result Comment: The drugs N-Acetylcysteine and Metamizole may falsely depress this assay. Serum Triglycerides Reference Interval Normal <150 mg/dL Borderline high 150 - 199 mg/dL High 200 - 499 mg/dL Very High > or = 500 mg/dL Performed By: #### L 500.4100, L502.0250, L500.4050 #### [facility] [address] [place], [address] Microalb:Creat Ratio,Random URon 09-24-2024 Creatinine [Mass/Vol] 87.70 mg/dL Normal NO RAN GE EST. [facility] Comment on above: Performed By: #### L 500.4100, L502.0250, L500.4050 #### [facility] [address] [place], [address] MALB:CRE 86.9 mg/g CRE High <30 mg/g CRE [facility] Comment on above: Performed By: #### L 500.4100, L502.0250, L500.4050 #### [facility] [address] [place], [address] MICROALBUMIN,UR 76.2 mg/L Normal NO RANGE EST. [facility] Comment on above: Performed By: #### L 500.4100, L502.0250, L500.4050 #### [facility] [address] [place], [address] Comprehensive Metabolic Prof ilon 06-22-2024 Albumin [Mass/Vol] 3.5 g/dL Normal 3.2-5.0 [facility] Comment on above: Performed By: #### L 502.0250, L500.4050, L500.4100, L501.9985 #### [facility] [address] [place], [address] Albumin/Globulin [Mass ratio] 1.0 {ratio} Normal 0.9-2.4 [facility] Comment on above: Performed By: #### L 502.0250, L500.4050, L500.4100, L501.9985 #### [facility] [address] [place], [address] ALK P 121 U/L High 45-117 [facility] Comment on above: Performed By: #### L 502.0250, L500.4050, L500.4100, L501.9985 #### [facility] [address] [place], [address] ALT [Catalytic activity/Vol] 35 U/L Normal 16-61 [facility] Comment on above: Performed By: #### L 502.0250, L500.4050, L500.4100, L501.9985 #### [facility] [address] [place], [address] AST [Catalytic activity/Vol] 19 U/L Normal 15-37 [facility] Comment on above: Performed By: #### L 502.0250, L500.4050, L500.4100, L501.9985 #### [facility] [address] [place], [address] Bilirubin [Mass/Vol] 0.70 mg/dL Normal 0.20-1.00 [facility] Comment on above: Result Comment: For patients on eltrombopag therapy, use of Dimension [place] TBIL is not recommended. Performed By: #### L 502.0250, L500.4050, L500.4100, L501.9985 #### [facility] [address] [place], [address] BUN/CRE 12.4 RATIO Normal 10-20 [facility] Comment on above: Performed By: #### L 502.0250, L500.4050, L500.4100, L501.9985 #### [facility] [address] [place], [address] CA,Total 8.9 mg/dL Normal 8.5-10.1 [facility] Comment on above: Performed By: #### L 502.0250, L500.4050, L500.4100, L501.9985 #### [facility] [address] [place], [address] Chloride [Moles/Vol] 104 mmol/L Normal 98-107 [facility] Comment on above: Performed By: #### L 502.0250, L500.4050, L500.4100, L501.9985 #### [facility] [address] [place], [address] CO2 [Moles/Vol] 23.0 mmol/L Normal 21.0-32.0 [facility] Comment on above: Performed By: #### L 502.0250, L500.4050, L500.4100, L501.9985 #### [facility] [address] [place], [address] Creatinine [Mass/Vol] 1.13 mg/dL Normal 0.70-1.30 [facility] Comment on above: Result Comment: The validity of the calculated GFR GFRAA in patients over 70 years has not been determined. Clinical correlation is essential. Performed By: #### L 502.0250, L500.4050, L500.4100, L501.9985 #### [facility] [address] [place], [address] EST GFR - AA 83 mL/min Normal >60 [facility] Comment on above: Result Comment: Afri can Kyrgyz GFR Calc Performed By: #### L 502.0250, L500.4050, L500.4100, L501.9985 #### [facility] [address] [place], [address] GAP 8 Normal 5-15 [facility] Comment on above: Performed By: #### L 502.0250, L500.4050, L500.4100, L501.9985 #### [facility] [address] [place], [address] GFR/1.73 sq M.predicted among non-blacks MDRD (S/P/Bld) [Vol rate/Area] 69 mL/min/{1.73_m2} Normal >60 [facility] Comment on above: Result Comment: Non- GFR Calc Performed By: #### L 502.0250, L500.4050, L500.4100, L501.9985 #### [facility] [address] [place], [address] Globulin (S) [Mass/Vol] 3.4 g/dL Normal 2.2-4.2 [facility] Comment on above: Performed By: #### L 502.0250, L500.4050, L500.4100, L501.9985 #### [facility] [address] [place], [address] Glucose [Mass/Vol] 351 mg/dL High 74-106 [facility] Comment on above: Result Comment: Gluc ose result greater than or equal to 200 mg/dL suggests DIABETES MELLITUS per A.D.A. criteria. Performed By: #### L 502.0250, L500.4050, L500.4100, L501.9985 #### [facility] [address] [place], [address] Potassium [Moles/Vol] 4.2 mmol/L Normal 3.5-5.1 [facility] Comment on above: Performed By: #### L 502.0250, L500.4050, L500.4100, L501.9985 #### [facility] [address] [place], [address] Sodium [Moles/Vol] 135 mmol/L Low 136-145 [facility] Comment on above: Performed By: #### L 502.0250, L500.4050, L500.4100, L501.9985 #### [facility] [address] [place], [address] T PROT 6.9 g/dL Normal 6.4-8.2 [facility] Comment on above: Performed By: #### L 502.0250, L500.4050, L500.4100, L501.9985 #### [facility] [address] [place], [address] Urea nitrogen [Mass/Vol] 14 mg/dL Normal 7-18 [facility] Comment on above: Performed By: #### L 502.0250, L500.4050, L500.4100, L501.9985 #### [facility] [address] [place], [address] Hemoglobin A1con 06-22-2024 HbA1c (Bld) [Mass fraction] % High 3.8-5.6 [facility] Comment on above: Result Comment: Norm al < 5.7 % Prediabetic 5.7 - 6.4 % Diabetic >or= 6.5 % Please note range changes. Performed By: #### L 502.0250, L500.4050, L500.4100, L501.9985 #### [facility] [address] [place], [address] Lipid Profileon 06-22-2024 Cholesterol [Mass/Vol] 219 mg/dL High 200 [facility] Comment on above: Result Comment: <200 mg/dL Desirable 200-240 mg/dL Borderline >240 mg/dL High Risk Performed By: #### L 502.0250, L500.4050, L500.4100, L501.9985 #### [facility] [address] [place], [address] Cholesterol in HDL [Mass/Vol] 39 mg/dL Low [facility] Comment on above: Result Comment: The drugs N-Acetylcysteine and Metamizole may falsely depress this assay. Reference Range HDL <40 mg/dL Low HDL Cholesterol HDL >or= 60 mg/dL High HDL Cholesterol Performed By: #### L 502.0250, L500.4050, L500.4100, L501.9985 #### [facility] [address] [place], [address] Cholesterol in LDL [Mass/Vol] 114 mg/dL Normal 0-130 [facility] Comment on above: Performed By: #### L 502.0250, L500.4050, L500.4100, L501.9985 #### [facility] [address] [place], [address] Cholesterol in VLDL [Mass/Vol] 66 mg/dL High 5-40 [facility] Comment on above: Performed By: #### L 502.0250, L500.4050, L500.4100, L501.9985 #### [facility] [address] [place], [address] Triglyceride [Mass/Vol] 329 mg/dL High [facility] Comment on above: Result Comment: The drugs N-Acetylcysteine and Metamizole may falsely depress this assay. Serum Triglycerides Reference Interval Normal <150 mg/dL Borderline high 150 - 199 mg/dL High 200 - 499 mg/dL Very High > or = 500 mg/dL Performed By: #### L 502.0250, L500.4050, L500.4100, L501.9985 #### [facility] [address] [place], [address] Microalb:Creat Ratio,Random URon 06-22-2024 Creatinine [Mass/Vol] 61.90 mg/dL Normal NO RAN GE EST. [facility] Comment on above: Performed By: #### L 502.0250, L500.4050, L500.4100, L501.9985 #### [facility] [address] [place], [address] MALB:CRE 69.5 mg/g CRE High <30 mg/g CRE [facility] Comment on above: Performed By: #### L 502.0250, L500.4050, L500.4100, L501.9985 #### [facility] [address] [place], [address] MICROALBUMIN,UR 43.0 mg/L Normal NO RANGE EST. [facility] Comment on above: Performed By: #### L 502.0250, L500.4050, L500.4100, L501.9985 #### [facility] [address] [place], [address] Absolute lymphocyte countOrd ered By: Tom Yanez on 01-17-2023 Lymphocytes Auto (Unsp spec) [#/Vol] 1.40 10*3/uL 0.83-4.51 [facility] Basophil percentageOrdered B y: Tom Yanez on 01-17-2023 Basophils/100 WBC (Bld) 0.7 % 0-1 [facility] Bilirubin [Mass/Vol] 0.40 mg/dL 0.20-1.00 [facility] Comment on above: For patients on eltr ombopag therapy, use of Dimension [place] TBIL is not recommended. Chloride [Moles/Vol] 105 mmol/L 98-107 [facility] Eosinophils/100 WBC (Bld) 3.7 % 0-5 [facility] Glucose [Mass/Vol] 207 mg/dL 74-106 [facility] Comment on above: Glucose result great er than or equal to 200 mg/dLsuggests DIABETES MELLITUS per A.D.A. criteria. Neutrophils (Bld) [#/Vol] 3.3 10*3/uL 2.0-7.7 [facility] Neutrophils/100 WBC (Bld) 54.8 % 47-70 [facility] Potassium [Moles/Vol] 3.9 mmol/L 3.5-5.1 [facility] Protein [Mass/Vol] 7.0 g/dL 6.4-8.2 [facility] Sodium [Moles/Vol] 136 mmol/L 136-145 [facility] WBC (Bld) [#/Vol] 6.0 10*3/uL 4.4-11.0 [facility] Blood erythrocytes count (nu mber/volume)Ordered By: Tom Yanez on 01-17-2023 RBC (Bld) [#/Vol] 4.13 10*6/uL 4.6-6.2 [facility] Blood hemoglobin measurement (mass/volume)Ordered By: Tom Yanez on 01-17-2023 Hemoglobin (Bld) [Mass/Vol] 12.9 g/dL 13.0-16.5 [facility] Blood lymphocytes/100 leukoc ytesOrdered By: Tom Yanez on 01-17-2023 Lymphocytes/100 WBC (Bld) 23.5 % 19-41 [facility] Blood monocytes/100 leukocyt esOrdered By: Tom Yanez on 01-17-2023 Monocytes/100 WBC (Bld) 17.0 % 0-10 [facility] Blood platelet mean volumeOr dered By: Tom Yanez on 01-17-2023 Platelet mean volume (Bld) [Entitic vol] 8.9 fL 6.2-12.0 [facility] Determination of erythrocyte mean corpuscular volume (MCV)Ordered By: Tom Yanez on 01-17-2023 MCV (RBC) [Entitic vol] 91.0 fL 80-94 [facility] Direct bilirubinOrdered By: Tom Yanez on 01-17-2023 Bilirubin.direct [Mass/Vol] 0.08 mg/dL 0.00-0.30 [facility] Hematocrit Auto (Bld) [Volum e fraction]Ordered By: Tom Yanez on 01-17-2023 Hematocrit (Bld) [Volume fraction] 37.6 % 40-54 [facility] - Chemistry and C hemistry - challengeOrdered By: Tom Yanez on 01-17-2023 ALP [Catalytic activity/Vol] 107 U/L 45-117 [facility] ALT [Catalytic activity/Vol] 29 U/L 16-61 [facility] CO2 [Moles/Vol] 22.0 mmol/L 21.0-32.0 [facility] Globulin (S) [Mass/Vol] 3.3 g/dL 2.2-4.2 [facility] Lipase [Catalytic activity/Vol] 81 U/L 73-393 [facility] Urea nitrogen/Creatinine [Mass ratio] 17.0 mg/mg 10-20 [facility] - Hematology and Cell countsOrdered By: Tom Yanez on 01-17-2023 Erythrocyte distribution width (RBC) [Entitic vol] 39.9 fL 35.1-43.9 [facility] Erythrocyte distribution width (RBC) [Ratio] 12.0 % 11.6-14.6 [facility] Immature granulocytes/100 WBC (Bld) 0.300 % 0.0-0.9 [facility] Comment on above: IG% - Immature Granu locytes (promyelocytes, myelocytes and metamyelocytes) > 1% indicates that a LEFT SHIFT is Present. MCH (RBC) [Entitic mass] 31.2 pg 27.0-32.0 [facility] Nucleated RBC/100 WBC (Bld) [Ratio] 0 % 0-5 [facility] MCHC Auto (RBC) [Mass/Vol]Or dered By: Tom Yanez on 01-17-2023 MCHC (RBC) [Mass/Vol] 34.3 g/dL 32-36 [facility] No Panel InformationOrdered By: Tom Yanez on 01-17-2023 Estimated Creatinine Clearance Calc 71.21 ml/min [facility] Estimated GFR (MDRD) Amer 84 mL/min >60 [facility] Comment on above: GFR Calc Estimated GFR (MDRD) Non-Af Amer 70 mL/min >60 [facility] Comment on above: Non- GFR Calc Platelets bldOrdered By: Dylon Yanez on 01-17-2023 Platelets (Bld) [#/Vol] 186 10*3/uL 150-450 [facility] Serum or plasma albumin yoav urement (mass/volume)Ordered By: Tom Yanez on 01-17-2023 Albumin [Mass/Vol] 3.7 g/dL 3.2-5.0 [facility] Serum or plasma calcium yoav urement (mass/volume)Ordered By: Tom Yanez on 01-17-2023 Calcium [Mass/Vol] 8.4 mg/dL 8.5-10.1 [facility] Serum or plasma creatinine m easurement (mass/volume)Ordered By: Tom Yanez on 01-17-2023 Creatinine [Mass/Vol] 1.12 mg/dL 0.70-1.30 [facility] Comment on above: The validity of the calculated GFR & GFRAA in patients over 70 years has not been determined. Clinical correlation is essential. Serum or plasma urea nitroge n measurement (mass/volume)Ordered By: Tom Yanez on 01-17-2023 Urea nitrogen [Mass/Vol] 19 mg/dL 7-18 [facility] Thin prep Papanicolaou smear with manual screeningOrdered By: Tom Yanez on 01-17-2023 Thin prep Papanicolaou smear with manual screening 18 U/L 15-37 [facility] Thin prep Papanicolaou smear with manual screening 9 5-15 [facility] Basophil percentageOrdered B y: Dr. Garrido on 12-24-2022 Chloride [Moles/Vol] 105 mmol/L 98-107 [facility] Cholesterol [Mass/Vol] 170 mg/dL <200 [facility] Comment on above: <200 mg/dL Desirable 200-240 mg/dL Borderline >240 mg/dL High Risk Glucose [Mass/Vol] 105 mg/dL 74-106 [facility] Comment on above: Fasting Glucose resu lt from 100 to 125 mg/dL suggests IMPAIRED HOMEOSTASIS per A.D.A. criteria. Potassium [Moles/Vol] 4.2 mmol/L 3.5-5.1 [facility] Sodium [Moles/Vol] 138 mmol/L 136-145 [facility] Triglyceride [Mass/Vol] 251 mg/dL <199 [facility] Comment on above: The drugs N-Acetylcy steine and Metamizole may falsely depress this assay.Serum Triglycerides Reference Interval Normal <150 mg/dL Borderline high 150 - 199 mg/dL High 200 - 499 mg/dL Very High > or = 500 mg/dL Laboratory - Chemistry and C hemistry - challengeOrdered By: Dr. Garrido on 12-24-2022 CO2 [Moles/Vol] 24.0 mmol/L 21.0-32.0 [facility] Urea nitrogen/Creatinine [Mass ratio] 19.4 mg/mg 10-20 [facility] No Panel InformationOrdered By: Dr. Garrido on 12-24-2022 Estimated GFR (MDRD) Amer 93 mL/min >60 [facility] Comment on above: GFR Calc Estimated GFR (MDRD) Non-Af Amer 77 mL/min >60 [facility] Comment on above: Non- GFR Calc Serum or plasma calcium yoav urement (mass/volume)Ordered By: Dr. Garrido on 12-24-2022 Calcium [Mass/Vol] 9.1 mg/dL 8.5-10.1 [facility] Serum or plasma cholesterol in HDL measurement (mass/volume)Ordered By: Dr. Garrido on 12-24-2022 Cholesterol in HDL [Mass/Vol] 48 mg/dL >40 [facility] Comment on above: The drugs N-Acetylcy steine and Metamizole may falsely depress this assay. Reference Range HDL <40 mg/dL Low HDL Cholesterol HDL >or= 60 mg/dL High HDL Cholesterol Serum or plasma cholesterol in VLDL measurement (mass/volume)Ordered By: Dr. Garrido on 12-24-2022 Cholesterol in VLDL [Mass/Vol] 50 mg/dL 5-40 [facility] Serum or plasma creatinine m easurement (mass/volume)Ordered By: Dr. Garrido on 12-24-2022 Creatinine [Mass/Vol] 1.03 mg/dL 0.70-1.30 [facility] Comment on above: The validity of the calculated GFR & GFRAA in patients over 70 years has not been determined. Clinical correlation is essential. Serum or plasma low density lipoprotein (LDL) cholesterol measurement (mass/volume)Ordered By: Dr. Garrido on 12-24-2022 Cholesterol in LDL [Mass/Vol] 72 mg/dL 0-130 [facility] Serum or plasma urea nitroge n measurement (mass/volume)Ordered By: Dr. Garrido on 12-24-2022 Urea nitrogen [Mass/Vol] 20 mg/dL 7-18 [facility] Thin prep Papanicolaou smear with manual screeningOrdered By: Dr. Garrido on 12-24-2022 Thin prep Papanicolaou smear with manual screening 9 5-15 [facility] Whole blood hemoglobin A1c/t otal hemoglobin ratio (mass fraction)Ordered By: Dr. Garrido on 12-24-2022 HbA1c (Bld) [Mass fraction] 6.8 % 3.8-5.6 [facility] Comment on above: Normal < 5.7 % Predi abetic 5.7 - 6.4 % Diabetic >or= 6.5 % Please note range changes. .Auto Diffon 02-26-2022 Basophil, Absolute 0.00 10 3/mcL Normal 0.00-0.19 [facility] ([place] Comment on above: Performed By: #### C BC, ADIFF, ANEU, BMP, GFR, TROPHS #### [address] [address] Basophils/100 WBC (Bld) 0.8 % Normal 0.0-2.5 [facility] ([place]) Comment on above: Performed By: #### C BC, ADIFF, ANEU, BMP, GFR, TROPHS #### [address] [address] Eosinophil, Absolute 0.10 10 3/mcL Normal 0.00-0.40 A [facility] ([place]) Comment on above: Performed By: #### C BC, ADIFF, ANEU, BMP, GFR, TROPHS #### [address] [address] Eosinophils/100 WBC (Bld) 2.6 % Normal 0.0-7.0 [facility] ([place] Comment on above: Performed By: #### C BC, ADIFF, ANEU, BMP, GFR, TROPHS #### [address] [address] Lymphocyte, Absolute 1.30 10 3/mcL Normal 0.77-3.85 A [facility] ([place]) Comment on above: Performed By: #### C BC, ADIFF, ANEU, BMP, GFR, TROPHS #### [address] [address] Lymphocytes/100 WBC (Bld) 25.0 % Normal 10.0-50.0 [facility] ([place] Comment on above: Performed By: #### C BC, ADIFF, ANEU, BMP, GFR, TROPHS #### [address] [address] Monocyte, Absolute 0.40 10 3/mcL Normal 0.15-1.00 [facility] ([place] Comment on above: Performed By: #### C BC, ADIFF, ANEU, BMP, GFR, TROPHS #### [address] [address] Monocytes/100 WBC (Bld) 8.3 % Normal 1.7-13.0 [facility] ([place] Comment on above: Performed By: #### C BC, ADIFF, ANEU, BMP, GFR, TROPHS #### [address] [address] Neutrophils/100 WBC (Bld) 63.3 % Normal 37.0-80.0 [facility] ([place] Comment on above: Performed By: #### C BC, ADIFF, ANEU, BMP, GFR, TROPHS #### [address] [address] .GFRon 02-26-2022 GFR 71 ml/min/1.73sqm Normal [facility] ([place] Comment on above: Result Comment: GFR Population mean for , Non- Americans Ages 20-29 = 116 mL/min/1.73 sq.m. Ages 30-39 = 107 mL/min/1.73 sq.m. Ages 40-49 = 99 mL/min/1.73 sq.m. Ages 50-59 = 93 mL/min/1.73 sq.m. Ages 60-69 = 85 mL/min/1.73 sq.m. Ages 70+ = 75 mL/min/1.73 sq.m. Chronic Kidney Disease: Less than 60 mL/min/1.73 square meters End Stage Renal Disease: Less than 15 mL/min/1.73 square meters Performed By: #### C BC, ADIFF, ANEU, BMP, GFR, TROPHS #### [address] [address] GFR Non- 58 ml/min/1.73sqm Normal [facility] ([place] Comment on above: Result Comment: GFR Population mean for , Non- Americans Ages 20-29 = 116 mL/min/1.73 sq.m. Ages 30-39 = 107 mL/min/1.73 sq.m. Ages 40-49 = 99 mL/min/1.73 sq.m. Ages 50-59 = 93 mL/min/1.73 sq.m. Ages 60-69 = 85 mL/min/1.73 sq.m. Ages 70+ = 75 mL/min/1.73 sq.m. Chronic Kidney Disease: Less than 60 mL/min/1.73 square meters End Stage Renal Disease: Less than 15 mL/min/1.73 square meters Performed By: #### C BC, ADIFF, ANEU, BMP, GFR, TROPHS #### [address] [address] .NEUABSon 02-26-2022 Neutrophil, Absolute 3.20 10 3/mcL Normal 2.85-6.16 A [facility] ([place]) Comment on above: Performed By: #### C BC, ADIFF, ANEU, BMP, GFR, TROPHS #### [address] [address] BMPon 02-26-2022 BUN/Creatinine Ratio 19 ratio Normal 7-27 [facility] ([place] Comment on above: Performed By: #### C BC, ADIFF, ANEU, BMP, GFR, TROPHS #### [address] [address] Calcium [Mass/Vol] 8.5 mg/dL Normal 8.4-10.2 [facility] ([place]) Comment on above: Performed By: #### C BC, ADIFF, ANEU, BMP, GFR, TROPHS #### [address] [address] Chloride [Moles/Vol] 104 mmol/L Normal 98-107 [facility] ([place] Comment on above: Performed By: #### C BC, ADIFF, ANEU, BMP, GFR, TROPHS #### [address] [address] CO2 [Moles/Vol] 25 mmol/L Normal 23-31 [facility] ([place] Comment on above: Performed By: #### C BC, ADIFF, ANEU, BMP, GFR, TROPHS #### [address] [address] Creatinine [Mass/Vol] 1.24 mg/dL Normal 0.70-1.30 [facility] ([place] Comment on above: Performed By: #### C BC, ADIFF, ANEU, BMP, GFR, TROPHS #### [address] [address] Electrolyte Balance 8.0 mEq/L Normal 4.0-15.0 [facility] ([place]) Comment on above: Performed By: #### C BC, ADIFF, ANEU, BMP, GFR, TROPHS #### [address] [address] Glucose [Mass/Vol] 235 mg/dL High 80-115 [facility] ([place]) Comment on above: Performed By: #### C BC, ADIFF, ANEU, BMP, GFR, TROPHS #### [address] [address] Potassium [Moles/Vol] 4.5 mmol/L Normal 3.5-5.1 [facility] ([place] Comment on above: Performed By: #### C BC, ADIFF, ANEU, BMP, GFR, TROPHS #### [address] [address] Sodium [Moles/Vol] 137 mmol/L Normal 136-145 [facility] ([place]) Comment on above: Performed By: #### C BC, ADIFF, ANEU, BMP, GFR, TROPHS #### [address] [address] Urea nitrogen [Mass/Vol] 24 mg/dL High 7-18 [facility] ([place] Comment on above: Performed By: #### C BC, ADIFF, ANEU, BMP, GFR, TROPHS #### [address] [address] CBCon 02-26-2022 Erythrocyte distribution width (RBC) [Ratio] 12.6 % Normal 11.5-14.5 [facility] ([place] Comment on above: Performed By: #### C BC, ADIFF, ANEU, BMP, GFR, TROPHS #### [place] [address] Hematocrit (Bld) [Volume fraction] 38.3 % Low 42.0-52.0 [facility] ([place] Comment on above: Performed By: #### C BC, ADIFF, ANEU, BMP, GFR, TROPHS #### [place] [address] Hgb 13.2 G/dL Low 14.0-18.0 [facility] ([place] Comment on above: Performed By: #### C BC, ADIFF, ANEU, BMP, GFR, TROPHS #### [address] [address] MCH (RBC) [Entitic mass] 31.2 pg Normal 27.0-31.2 [facility] ([place] Comment on above: Performed By: #### C BC, ADIFF, ANEU, BMP, GFR, TROPHS #### [address] [address] MCHC 34.5 G/dL Normal 31.8-35.4 [facility] ([place] Comment on above: Performed By: #### C BC, ADIFF, ANEU, BMP, GFR, TROPHS #### [address] [address] MCV (RBC) [Entitic vol] 90.6 fL Normal 80.0-94.0 [facility] ([place] Comment on above: Performed By: #### C BC, ADIFF, ANEU, BMP, GFR, TROPHS #### [address] [address] Platelet 218 10 3/mcL Normal 130-400 [facility] ([place] Comment on above: Performed By: #### C BC, ADIFF, ANEU, BMP, GFR, TROPHS #### [place] [address] Platelet mean volume (Bld) [Entitic vol] 7.4 fL Normal 7.4-10.4 [facility] ([place] Comment on above: Performed By: #### C BC, ADIFF, ANEU, BMP, GFR, TROPHS #### [place] [address] RBC 4.22 10 6/mcL Normal 4.04-6.13 [facility] ([place] Comment on above: Performed By: #### C BC, ADIFF, ANEU, BMP, GFR, TROPHS #### [place] [address] WBC 5.10 10 3/mcL Normal 4.60-10.80 [facility] ([place] Comment on above: Performed By: #### C BC, ADIFF, ANEU, BMP, GFR, TROPHS #### [place] [address] DIMERon 02-26-2022 D-Dimer <200 Normal 0-230 [facility] ([place] Comment on above: Result Comment: The result of the D-Dimer test should be evaluated in the context of all the clinical and laboratory data available. In those instances where the laboratory result does not agree with the clinical evaluation, additional tests should be performed accordingly. If the D-Dimer result is used to exclude DVT or PE, the recommended cutoff value is less than 230 ng/mL. The D-Dimer result should not be used alone to rule in DVT/PE, but should be used in conjunction with a clinical pretest probability (PTP)assessment model to exclude venous thromboembolism (VTE) in outpatients suspected of deep venous thrombosis (DVT) and pulmonary embolism (PE). Performed By: #### P BNP, DIMER #### [place] [address] LABORATORYOrdered By: Jayne Meza on 02-26-2022 Troponin I.cardiac DL <= 0.01 ng/mL [Mass/Vol] 19.8 ng/L Invalid Interpretation Code 0.0 - 76.2 ng/L AO ADM SS Fibrin D-dimer DDU (PPP) [Mass/Vol] ng/mL D-DU Invalid Interpretation Code 0 - 230 ng/mL D-DU AO Coag SS Natriuretic peptide B (Bld) [Mass/Vol] 38 pg/mL Invalid Interpretation Code 0 - 125 pg/mL AO Chemistry S Basophil, Absolute 0.00 103/mcL Invalid Interpretation Code 0.00 - 0.19 10^3/mcL AO Auto Heme SS Basophils/100 WBC (Bld) 0.8 % Invalid Interpretation Code 0.0 - 2.5 % AO Auto Heme SS Calcium [Mass/Vol] 8.5 mg/dL Invalid Interpretation Code 8.4 - 10.2 mg/dL AO ADM SS Chloride [Moles/Vol] 104 mmol/L Invalid Interpretation Code 98 - 107 mmol/L AO ADM SS CO2 [Moles/Vol] 25 mmol/L Invalid Interpretation Code 23 - 31 mmol/L AO ADM SS Creatinine [Mass/Vol] 1.24 mg/dL Invalid Interpretation Code 0.70 - 1.30 mg/dL AO ADM SS Electrolyte Balance 8.0 mEq/L Invalid Interpretation Code 4.0 - 15.0 mEq/L AO ADM SS Eosinophil, Absolute 0.10 103/mcL Invalid Interpretation Code 0.00 - 0.40 10^3/mcL AO Auto Heme SS Eosinophils/100 WBC (Bld) 2.6 % Invalid Interpretation Code 0.0 - 7.0 % AO Auto Heme SS Erythrocyte distribution width (RBC) [Ratio] 12.6 % Invalid Interpretation Code 11.5 - 14.5 % AO Auto Heme SS Glucose [Mass/Vol] 235 mg/dL Invalid Interpretation Code 80 - 115 mg/dL AO ADM SS Hematocrit (Bld) [Volume fraction] 38.3 % Invalid Interpretation Code 42.0 - 52.0 % AO Auto Heme SS Hemoglobin (Bld) [Mass/Vol] 13.2 G/dL Invalid Interpretation Code 14.0 - 18.0 G/dL AO Auto Heme SS Lymphocyte, Absolute 1.30 103/mcL Invalid Interpretation Code 0.77 - 3.85 10^3/mcL AO Auto Heme SS Lymphocytes/100 WBC (Bld) 25.0 % Invalid Interpretation Code 10.0 - 50.0 % AO Auto Heme SS MCH (RBC) [Entitic mass] 31.2 pg Invalid Interpretation Code 27.0 - 31.2 pg AO Auto Heme SS MCHC (RBC) [Mass/Vol] 34.5 G/dL Invalid Interpretation Code 31.8 - 35.4 G/dL AO Auto Heme SS MCV (RBC) [Entitic vol] 90.6 fL Invalid Interpretation Code 80.0 - 94.0 fL AO Auto Heme SS Monocyte, Absolute 0.40 103/mcL Invalid Interpretation Code 0.15 - 1.00 10^3/mcL AO Auto Heme SS Monocytes/100 WBC (Bld) 8.3 % Invalid Interpretation Code 1.7 - 13.0 % AO Auto Heme SS Neutrophil, Absolute 3.20 103/mcL Invalid Interpretation Code 2.85 - 6.16 10^3/mcL AO Auto Heme SS Neutrophils/100 WBC (Bld) 63.3 % Invalid Interpretation Code 37.0 - 80.0 % AO Auto Heme SS Platelet mean volume (Bld) [Entitic vol] 7.4 fL Invalid Interpretation Code 7.4 - 10.4 fL AO Auto Heme SS Platelets (Bld) [#/Vol] 218 103/mcL Invalid Interpretation Code 130 - 400 10^3/mcL AO Auto Heme SS Potassium [Moles/Vol] 4.5 mmol/L Invalid Interpretation Code 3.5 - 5.1 mmol/L AO ADM SS RBC (Bld) [#/Vol] 4.22 106/mcL Invalid Interpretation Code 4.04 - 6.13 10^6/mcL AO Auto Heme SS Sodium [Moles/Vol] 137 mmol/L Invalid Interpretation Code 136 - 145 mmol/L AO ADM SS Troponin I.cardiac DL <= 0.01 ng/mL [Mass/Vol] 21.5 ng/L Invalid Interpretation Code 0.0 - 76.2 ng/L AO ADM SS Urea nitrogen [Mass/Vol] 24 mg/dL Invalid Interpretation Code 7 - 18 mg/dL AO ADM SS Urea nitrogen/Creatinine [Mass ratio] 19 ratio Invalid Interpretation Code 7 - 27 ratio AO ADM SS WBC (Bld) [#/Vol] 5.10 103/mcL Invalid Interpretation Code 4.60 - 10.80 10^3/mcL AO Auto Heme SS LABORATORYOrdered By: SYSTEM SYSTEM on 02-26-2022 GFR 71 ml/min/1.73sqm Invalid Interpretation Code AO Chemistry S GFR Non- 58 ml/min/1.73sqm Invalid Interpretation Code AO Chemistry S PBNPon 02-26-2022 Natriuretic peptide B (Bld) [Mass/Vol] 38 pg/mL Normal 0-125 [facility] ([place] Comment on above: Performed By: #### P BNP, DIMER #### [employer] [address] [address] TROPHSon 02-26-2022 Troponin I High Sensitivity 19.8 ng/L Normal 0.0-76.2 [facility] ([place] Comment on above: Performed By: #### T ROPHS #### [employer] [address] [address] Troponin I High Sensitivity 21.5 ng/L Normal 0.0-76.2 [facility] ([place]) Comment on above: Performed By: #### C BC, ADIFF, ANEU, BMP, GFR, TROPHS #### [employer] [place] [address] [place], [place] [address] XR CHEST 1 VIEWon 02-26-2022 XR CHEST 1 VIEW ORIGINAL EXAMINATION: ONE XRAY VIEW OF THE CHEST02/26/2022 6:26 am CHEST ONE VIEW AP/PA COMPARISON: None HISTORY: ORDERING SYSTEM PROVIDED HISTORY: Reason for Exam: chest pain FINDINGS: The cardiomediastinal silhouette is normal in appearance. No consolidation, pleural effusion, or vascular congestion is seen. The osseous structures are intact. IMPRESSION: No acute findings. Interpreted by: Jono Anthony MD Preliminary Report By: Jono Anthony MD Electronically signed By Jono Anthony MD Dictated Date: 02/26/2022 6:31:33 AM Prelim Date: 02/26/2022 6:32:21 AM Sign Date: 02/26/2022 6:32:21 AM Ordering Provider: MICHAEL MAYFIELD [facility] ([place]) CNOVon 06-16-2021 CNOV Office Visit (FAMPWS ) AYUSH JONES ([id number]) 1955 M Date Time Provider Department 06/16/21 7:40 AM TYRONE CUMMINGS During your visit today, we recorded the following information about you: Temperature Pulse Respiration Blood pressure 98 degrees 74/minute 14/minute 150/80 Weight 112 kg Tyrone Cummings APRN.NOE CANALES 06/16/2021 8:50 AM Addendum Chief Complaint Patient presents with: Establish Care HPI Ayush Jones is a 66 year old male who presents here today for a established physical exam. New to the clinic. Past Medical History: Obesity, hyperlipidemia, hypertension, GERD, Impaired fasting Glucose, ED Specialty Providers: None Presents to the [facility] as an established patient Dr. Moe Luke MD, and Rodney Marquez This is a new patient to me. No recent urgent care visits, ER visits, or hospitalizations. Prediabetes: Diagnosed with being prediabetic several months ago. Started on Metformin. No recent lab work. States previously was diagnosed with Covid and at that time was placed on steroids and if blood sugar spiked significantly. Shortly after that he was started on Metformin. Hypertension: On enalapril. States blood pressure is typically controlled. Denies side effects. Today blood pressure is 150/80. He did take his blood pressure medication this morning. Denies any headaches, lightheadedness or dizziness. No chest pain, difficulty breathing or shortness of breath. No chronic pain or chronic muscle or joint pain. No history of chronic constipation or diarrhea. Past medical history, appointments, medications, allergies reviewed 06/16/2021 Previous Medical History PAST MEDICAL HISTORY Diagnosis Date - Acid reflux - Class 2 obesity with body mass index (BMI) of 35.0 to 35.9 in adult - HTN (hypertension) - Hyperlipidemia LDL goal < 100 - Impaired fasting glucose 12/31/2014 - Low testosterone Previous Surgical History PAST SURGICAL HISTORY Procedure Laterality Date - APPENDECTOMY 2002 - SCROTUM EXCISION Family History FAMILY HISTORY Adopted: Yes Problem Relation Age of Onset - Cancer Mother Bladder Cancer - Coronary Artery Disease Father - Leukemia Father - Alzheimer's Disease Father - Coronary Artery Disease Sister - Heart Attack Sister - Stroke Sister - Coronary Artery Disease Sister - No Known Problems Brother - No Known Problems Brother - No Known Problems Brother - Coronary Artery Disease Maternal Grandmother - Cancer Maternal Grandmother - Coronary Artery Disease Maternal Grandfather - Cancer Maternal Grandfather - Coronary Artery Disease Paternal Grandmother - Coronary Artery Disease Paternal Grandfather - Bipolar disorder Daughter Patient Allergies ALLERGIES No Known Allergies Current Medications Current Outpatient Medications on File Prior to Visit Medication Sig - metFORMIN (GLUCOPHAGE) 500 mg tablet Take 500 mg by mouth daily with breakfast. - enalapril (VASOTEC) 10 mg tablet Take 1 tablet by mouth once daily. - omeprazole (PRILOSEC) 20 mg capsule TAKE 1 CAPSULE BY MOUTH DAILY BEFORE BREAKFAST. 1/2 HR BEFORE MEAL. - pravastatin (PRAVACHOL) 80 mg tablet TAKE 1 TABLET BY MOUTH ONCE DAILY. No current facility-administered medications on file prior to visit. Social History Social History Tobacco Use - Smoking status: Former Smoker Packs/day: 0.50 Years: 45.00 Pack years: 22.50 Types: Cigarettes Quit date: 1982 Years since quittin.6 - Smokeless tobacco: Never Used - Tobacco comment: using electronic cigarette now Vaping Use - Vaping Use: Never used Substance Use Topics - Alcohol use: Yes Alcohol/week: 1.0 standard drinks Types: 1 Cans of Beer (12oz) per week Comment: Socially - Drug use: No Review of Symptoms GENERAL: No unintentional weight loss, malaise or fevers. No night sweats HEENT: Negative for frequent or significant headaches No significant change in vision. No blurry vision, double vision, or vision loss. No nasal discharge or nose bleeds. No sore throat, difficulty swallowing, mouth lesions or hoarseness No hearing loss. No earaches, ear pain, or ear discharge. NECK: Negative for lumps, pain and significant neck swelling RESPIRATORY: Negative for cough or hemoptysis. No wheezing, dyspnea or shortness of breath CARDIOVASCULAR: Negative for chest pain, leg swelling, or palpitations, + erectile dysfunction GI: No nausea, vomiting, or diarrhea. No blood in stool : No dysuria, frequency, urgency. No hematuria. MUSCULOSKELETAL: Chronic back pain, leg cramps SKIN: Negative for lesions, rash, and itching HEMATOLOGY/LYMPHOLOGY : Negative for prolonged bleeding, bruising easily or swollen nodes EXAM: BP 150/80 Pulse 74 Temp 36.7 ?C (98 ?F) Resp 14 Wt 112 kg (247 lb) SpO2 97% BMI 35.44 kg/m? General Appearance: Well appearing, alert, in (more content not included)... [facility] Vital Signs Date Time Vital Sign Value Performing Clinician Facility 09-30-2024 09:40-0500 Diastolic blood pressure 83 mm[Hg] Ryan Lamport PA-C Work Phone: [facility] Comment on above: bp recheck / kse 09-30-2024 09:40-0500 Systolic blood pressure 146 mm[Hg] Ryan Lamport PA-C Work Phone: [facility] Comment on above: bp recheck / kse 09-30-2024 09:38-0500 Body height 182.9 cm Ryan Lamport PA-C Work Phone: [facility] 09-30-2024 09:38-0500 Body mass index (BMI) [Ratio] 28.75 kg/m2 Ryan Lamport PA-C Work Phone: [facility] 09-30-2024 09:38-0500 Body temperature 97.81 [degF] Ryan Lamport PA-C Work Phone: [facility] 09-30-2024 09:38-0500 Body weight 96.16 kg Ryan Lamport PA-C Work Phone: [facility] 09-30-2024 09:38-0500 Heart rate 67 /min Ryan Lamport PA-C Work Phone: [facility] 09-30-2024 09:38-0500 Respiratory rate 16 /min Ryan Lamport PA-C Work Phone: [facility] 09-30-2024 09:38-0500 SaO2% (BldA) [Mass fraction] 97 % Ryan Lamport PA-C Work Phone: [facility] 05-27-2023 06:25-0400 Body height 182.88 cm [facility] 05-27-2023 06:25-0400 Body mass index (BMI) [Ratio] 34.2 kg/m2 [facility] 05-27-2023 06:25-0400 Body weight 114.6 kg [facility] 05-27-2023 06:19-0400 Body temperature 98.2 [degF] [facility] 05-27-2023 06:19-0400 Diastolic blood pressure 90 mm[Hg] [facility] 05-27-2023 06:19-0400 Heart rate 71 /min [facility] 05-27-2023 06:19-0400 Respiratory rate 15 /min [facility] 05-27-2023 06:19-0400 SaO2% (BldA) [Mass fraction] 96 % [facility] 05-27-2023 06:19-0400 Systolic blood pressure 166 mm[Hg] [facility] 01-17-2023 03:55-0500 Diastolic blood pressure 60 mm[Hg] Dr. Darrell Garrido Work Phone: [facility] 01-17-2023 03:55-0500 Heart rate 82 /min Dr. Darrell Garrido Work Phone: [facility] 01-17-2023 03:55-0500 Respiratory rate 16 /min Dr. Darrell Garrido Work Phone: [facility] 01-17-2023 03:55-0500 Systolic blood pressure 154 mm[Hg] Dr. Darrell Garrido Work Phone: [facility] 01-17-2023 02:02-0500 Body height 182.[address] Darrell Garrido Work Phone: [facility] 01-17-2023 02:02-0500 Body mass index (BMI) [Ratio] 35.2 kg/m2 Dr. Darrell Garrido Work Phone: [facility] 01-17-2023 02:02-0500 Body temperature 97.8 [degF] Dr. Darrell Garrido Work Phone: [facility] 01-17-2023 02:02-0500 Body weight 117.[address] Darrell Garrido Work Phone: [facility] 01-17-2023 02:02-0500 SaO2% (BldA) [Mass fraction] 97 % Dr. Darrell Garrido Work Phone: [facility] 01-16-2023 08:22-0500 Body mass index (BMI) [Ratio] 35.2 kg/m2 Dr. Darrell Garrido Work Phone: [facility] 01-16-2023 08:22-0500 Body temperature 97.3 [degF] Dr. Darrell Garrido Work Phone: [facility] 01-16-2023 08:22-0500 Body weight 117.[address] Darrell Garrido Work Phone: [facility] 01-16-2023 08:22-0500 Diastolic blood pressure 88 mm[Hg] Dr. Darrell Garrido Work Phone: [facility] 01-16-2023 08:22-0500 Heart rate 80 /min Dr. Darrell Garrido Work Phone: [facility] 01-16-2023 08:22-0500 Respiratory rate 14 /min Dr. Darrell Garrido Work Phone: [facility] 01-16-2023 08:22-0500 SaO2% (BldA) [Mass fraction] 97 % Dr. Darrell Garrido Work Phone: [facility] 01-16-2023 08:22-0500 Systolic blood pressure 160 mm[Hg] Dr. Darrell Garrido Work Phone: [facility] 02-26-2022 07:45-0400 Diastolic blood pressure 94 mm[Hg] DR MICHAEL MAYFIELD MD [facility] 02-26-2022 07:45-0400 Heart rate 66 /min DR MICHAEL MAYFIELD MD [facility] 02-26-2022 07:45-0400 Mean blood pressure 110 mm[Hg] DR MICHAEL MAYFIELD MD [facility] 02-26-2022 07:45-0400 Respiratory rate 16 /min DR MICHAEL MAYFIELD MD [facility] 02-26-2022 07:45-0400 Systolic blood pressure 143 mm[Hg] DR MICHAEL MAYFIELD MD [facility] 02-26-2022 06:38-0400 Diastolic blood pressure 77 mm[Hg] DR MICHAEL MAYFIELD MD [facility] 02-26-2022 06:38-0400 Heart rate 88 /min DR MICHAEL MAYFIELD MD [facility] 02-26-2022 06:38-0400 Mean blood pressure 91 mm[Hg] DR MICHAEL MAYFIELD MD [facility] 02-26-2022 06:38-0400 Respiratory rate 18 /min DR MICHAEL MAYFIELD MD [facility] 02-26-2022 06:38-0400 Systolic blood pressure 118 mm[Hg] DR MICHAEL MAYFIELD MD [facility] 02-26-2022 06:21-0400 Diastolic blood pressure 91 mm[Hg] DR MCIHAEL MAYFIELD MD [facility] 02-26-2022 06:21-0400 Heart rate 68 /min DR MICHAEL MAYFIELD MD [facility] 02-26-2022 06:21-0400 Mean blood pressure 107 mm[Hg] DR MICHAEL MAYFIELD MD [facility] 02-26-2022 06:21-0400 Respiratory rate 18 /min DR MICHAEL MAYFIELD MD [facility] 02-26-2022 06:21-0400 Systolic blood pressure 138 mm[Hg] DR MICHAEL MAYFIEDL MD [facility] 02-26-2022 06:07-0400 Body temperature 97.88 [degF] DR MICHAEL MAYFIELD MD [facility] Encounters Encounter Date Encounter Type Care Provider Facility Start: 12-24-2024 End: 12-24-2024 [facility] Start: 09-30-2024 End: 09-30-2024 Office outpatient new 30 minutes Ryan Santos PA-C Work Phone: [facility] [place] Comment on above: Rib pain on right si de (Primary Dx) Start: 09-30-2024 End: 10-04-[address] [facility] Start: 09-24-2024 End: 09-24-2024 ambulatory Darrell Garrido Facility:[facility] Start: 06-22-2024 End: 06-22-2024 ambulatory Darrell Garrido Facility:[facility] Start: 05-27-2023 End: 05-27-2023 Emergency department patient visit [facility] Work Phone: Start: 01-17-2023 End: 01-17-2023 Emergency department patient visit Dr. Darrell Garrido Work Phone: [facility] Start: 01-16-2023 End: 01-16-[address] Darrell Garrido Work Phone: [facility] Start: 12-24-2022 End: 12-24-2022 ambulatory [facility] Work Phone: Start: 12-24-2022 End: 12-24-2022 Patient encounter procedure [facility] Start: 02-26-2022 End: 02-26-2022 Emergency department patient visit DR MICHAEL MAYFIELD MD [facility] Procedures Date Procedure Procedure Detail Performing Clinician Start: 09-30-2024 Radex ribs uni w/posteroant ch minimum 3 views Ryan Santos PA-C Work Phone: Plan of Treatment Date Care Activity Detail Author Start: 11-06-2031 Tetanus vaccination Tetanus: Every 10yrs [facility] Start: 02-23-2031 Respiratory Syncytial Virus Immunization: Risk, 60-74 Risk, or 75+ (1 - 1-dose 75+ series) Respiratory Syncytial Virus Immunization: Risk, 60-74 Risk, or 75+ (1 - 1-dose 75+ series) [facility] Start: 07-19-2024 COVID-19 Vaccine ( season) COVID-19 Vaccine ( season) [facility] Start: 07-19-2024 Influenza vaccination Influenza Vaccine (#1) [facility] Start: 02-23-2021 Fall risk assessment Falls Risk Assessment [facility] Start: 02-23-2021 Pneumococcal Vaccine: Age 65+ (1 of 1 - PCV) Pneumococcal Vaccine: Age 65+ (1 of 1 - PCV) [facility] Start: 02-23-2006 Administration of herpes zoster vaccine Zoster Vaccines (1 of 2) [facility] Start: 02-23-1974 Hepatitis C screening Hepatitis C Screening [facility] Start: 1968 Depression screening using PHQ-9 (Patient Health Questionnaire 9) score Depression Screening/Follow-Up (PHQ-2/9) [facility] Start: 02-23-1959 History and physical examination, annual for health maintenance Wellness Visit [facility] Start: 1955 Prostate specific antigen measurement PSA Level [facility] Start: 1955 Screening for malignant neoplasm of colon [facility] Patient Education [facility] Work Phone: Patient referral [facility] Work Phone: Immunizations Immunization Date Immunization Notes Care Provider Fa lori 11-06-2021 tetanus toxoid, redu ifeanyi diphtheria toxoid, and acellular pertussis vaccine, adsorbed [facility] Payers Date Payer Category Payer Medicare [id number] 2024 Medicare [id number] 2024 Self-pay [id number] 2024 Medicare PPO [facility] AARP MEDICAR E ADVANTAGE/[employer] [id number] 2024 Medicare [id number] 2014 Unknown [employer] [id number] 1955 Unknown [id number] 1955 Unknown [id number] 1955 Unknown [id number] Medicaid MEDICAID [id number] Unknown ANTHEM [id number] Unknown [id number] Unknown [id number] Unknown [id number] Social History Date Type Detail Facility Start: 12-06-2021 End: 05-27-2023 Tobacco smoking status NHIS Unknown if ever smoked [facility] Start: 1955 Sex Assigned At Male W [facility] Start: 08-25-2014 None [facility] Start: 08-25-2014 Cigarettes [facility] Start: 09-30-2024 [facility] History of tobacco use Cigarette Smoker [facility] History of tobacco use [facility] Start: 09-30-2024 Tobacco use and exposure Smokeless tobacco non-user [facility] Start: 09-30-2024 Alcoholic beverage intake Current drinker of alcohol (finding) [facility] Start: 09-30-2024 History of Social function [facility] Start: 09-30-2024 Tobacco use panel [facility] Start: 09-30-2024 Alcohol Comment rarely [facility] Start: 1955 Sex assigned at Not on file [facility] Functional Status Date Assessment Result Facility 02-26-2022 Functional Status [facility] 02-26-2022 Functional Status [facility] Mental Status Date Assessment Result Facility 05-27-2023 Cognitive function Voice/Name [facility] Work Phone: 02-26-2022 Mental Status [facility] 02-26-2022 Mental Status [facility] Clinical Notes 06-16-2021 to 09-30-2024 Ryan Santos PA-C - 09/30/2024 9:53 AM EST Note Date & Type Note Facility 09-30-2024 Note Patient Name: [facility] Location: Ayush Jones [address] [facility] [id number] Date Of : Date Of Visit: 1955 09/30/2024 MRN# Provider: [id number] Ryan Santos PA-C Chief Complaint Patient presents with Rib Injury Right sided rib pain after a coughing fit. Alice something pop. Currently treated for URI Assessment & Plan 1. Rib pain on right side XR Ribs Right With Chest 3+ Views traMADol (ULTRAM) 50 mg tablet CANCELED: XR Ribs Left With Chest 3+ Views No follow-ups on file. Medical Decision Making X-ray of the chest and right ribs reviewed by myself fails to reveal any obvious acute rib fracture. I believe he has a sprained rib. This is something that will probably hurt for the next 4 to 6 weeks. I did prescribe some tramadol 50 mg #10 tablets to use as needed for acute pain over the next few days. He may also use ibuprofen. Recommended ice application. Recommend he take deep breaths in and out several times a day. If the pain continues to be severe he needs to follow-up with his PCP. Subjective 69 y.o. male presents with Rib Injury (Right sided rib pain after a coughing fit. Alice something pop. Currently treated for URI) He has been fighting an upper respiratory infection for over 10 days. His PCP did place him on a Z-Trav for this. He finished this a couple of days ago and is improving. He does however continue with a little bit of some anterior chest congestion and cough. Last night he coughed very hard and felt a sharp pain in his right anterior/lateral rib cage. This morning he had a coughing fit and this caused the right rib cage to have severe pain. He felt a snapping sensation in that area. Since then he has had severe right anterior/lateral rib pain. No fever or chill currently. No severe shortness of breath. Review Of Systems Review of Systems Constitutional: Negative for chills and fever. HENT: Negative for congestion, rhinorrhea, sinus pressure and sore throat. Respiratory: Positive for cough. Negative for shortness of breath. Gastrointestinal: Negative for diarrhea, nausea and vomiting. Musculoskeletal: Positive for right-sided rib pain Medical History Past Medical History: Diagnosis Date Diabetes mellitus (HCC) GERD (gastroesophageal reflux disease) Hyperlipidemia Hypertension History reviewed. No pertinent surgical history. There is no problem list on file for this patient. Social History Social History Tobacco Use Smoking status: Some Days Types: Cigarettes Passive exposure: Current Smokeless tobacco: Never Vaping Use Vaping status: Never Used Substance Use Topics Alcohol use: Yes Comment: rarely Drug use: Never Family History History reviewed. No pertinent family history. Objective Physical Exam BP (!) 146/83 (BP Location: Left arm, Patient Position: Sitting, BP Cuff Size: Adult) Comment: bp recheck / kse Pulse 67 Temp 97.8 degrees F (36.6 degrees C) (Oral) Resp 16 Ht 6' Wt 96.2 kg (212 lb) SpO2 97% BMI 28.75 kg/m Vision/Hearing Exam:No results found. Physical Exam Vitals and nursing note reviewed. Constitutional: Appearance: Normal appearance. HENT: Right Ear: Tympanic membrane normal. Left Ear: Tympanic membrane normal. Nose: Nose normal. Mouth/Throat: Mouth: Mucous membranes are moist. Pharynx: No posterior oropharyngeal erythema. Eyes: Conjunctiva/sclera: Conjunctivae normal. Cardiovascular: Rate and Rhythm: Regular rhythm. Heart sounds: No murmur heard. Pulmonary: Effort: Pulmonary effort is normal. Breath sounds: Normal breath sounds. Abdominal: General: Abdomen is flat. Bowel sounds are normal. Palpations: Abdomen is soft. Tenderness: There is no abdominal tenderness. Musculoskeletal: Comments: Severely tender on palpation of the right anterior and lateral rib cage Procedure Notes Procedures Results No results found for this or any previous visit (from the past week). XR Ribs Right With Chest 3+ Views (Results Pending) Orders Placed This Visit Orders Placed This Encounter Procedures XR Ribs Right With Chest 3+ Views Medication List At End Of Visit Current Outpatient Medications Medication Sig Dispense Refill amLODIPine (NORVASC) 5 MG tablet hydroCHLOROthiazide (HYDRODIURIL) 25 MG tablet metFORMIN (GLUCOPHAGE-XR) 500 MG 24 hr tablet omeprazole (PRILOSEC) 20 MG capsule TAKE 1 CAPSULE BY MOUTH DAILY BEFORE BREAKFAST. 1/2 HR BEFORE MEAL. pravastatin (PRAVACHOL) 80 MG tablet Take 1 (one) tablet (80 mg total) by mouth daily . traMADol (ULTRAM) 50 mg tablet Take 1 (one) tablet (50 mg total) by mouth 3 (three) times a day as needed for pain . 10 tablet 0 No current facility-administered medications for this visit. There are no Patient Instructions on file for this visit. AUTHENTICATED BY RYAN SANTOS, ON 09/30/2024 12:44:23 [facility] 09-30-2024 History of Present illness Narrative Images from the original note were not included. Patient Name: [facility] Location: Ayush Jones [address] [place] [id number] Date Of : Date Of Visit: 1955 09/30/2024 MRN# Provider: [id number] Ryan Santos PA-C Chief Complaint Patient presents with Rib Injury Right sided rib pain after a coughing fit. Alice something pop. Currently treated for URI Assessment & Plan 1. Rib pain on right side XR Ribs Right With Chest 3+ Views traMADol (ULTRAM) 50 mg tablet CANCELED: XR Ribs Left With Chest 3+ Views No follow-ups on file. Medical Decision Making X-ray of the chest and right ribs reviewed by myself fails to reveal any obvious acute rib fracture. I believe he has a sprained rib. This is something that will probably hurt for the next 4 to 6 weeks. I did prescribe some tramadol 50 mg #10 tablets to use as needed for acute pain over the next few days. He may also use ibuprofen. Recommended ice application. Recommend he take deep breaths in and out several times a day. If the pain continues to be severe he needs to follow-up with his PCP. Subjective 69 y.o. male presents with Rib Injury (Right sided rib pain after a coughing fit. Alice something pop. Currently treated for URI) He has been fighting an upper respiratory infection for over 10 days. His PCP did place him on a Z-Trav for this. He finished this a couple of days ago and is improving. He does however continue with a little bit of some anterior chest congestion and cough. Last night he coughed very hard and felt a sharp pain in his right anterior/lateral rib cage. This morning he had a coughing fit and this caused the right rib cage to have severe pain. He felt a snapping sensation in that area. Since then he has had severe right anterior/lateral rib pain. No fever or chill currently. No severe shortness of breath. Review Of Systems Review of Systems Constitutional: Negative for chills and fever. HENT: Negative for congestion, rhinorrhea, sinus pressure and sore throat. Respiratory: Positive for cough. Negative for shortness of breath. Gastrointestinal: Negative for diarrhea, nausea and vomiting. Musculoskeletal: Positive for right-sided rib pain Medical History Past Medical History: Diagnosis Date Diabetes mellitus (HCC) GERD (gastroesophageal reflux disease) Hyperlipidemia Hypertension History reviewed. No pertinent surgical history. There is no problem list on file for this patient. Social History Social History Tobacco Use Smoking status: Some Days Types: Cigarettes Passive exposure: Current Smokeless tobacco: Never Vaping Use Vaping status: Never Used Substance Use Topics Alcohol use: Yes Comment: rarely Drug use: Never Family History History reviewed. No pertinent family history. Objective Physical Exam BP (!) 146/83 (BP Location: Left arm, Patient Position: Sitting, BP Cuff Size: Adult) Comment: bp recheck / kse Pulse 67 Temp 97.8 F (36.6 C) (Oral) Resp 16 Ht 6' Wt 96.2 kg (212 lb) SpO2 97% BMI 28.75 kg/m Vision/Hearing Exam:No results found. Physical Exam Vitals and nursing note reviewed. Constitutional: Appearance: Normal appearance. HENT: Right Ear: Tympanic membrane normal. Left Ear: Tympanic membrane normal. Nose: Nose normal. Mouth/Throat: Mouth: Mucous membranes are moist. Pharynx: No posterior oropharyngeal erythema. Eyes: Conjunctiva/sclera: Conjunctivae normal. Cardiovascular: Rate and Rhythm: Regular rhythm. Heart sounds: No murmur heard. Pulmonary: Effort: Pulmonary effort is normal. Breath sounds: Normal breath sounds. Abdominal: General: Abdomen is flat. Bowel sounds are normal. Palpations: Abdomen is soft. Tenderness: There is no abdominal tenderness. Musculoskeletal: Comments: Severely tender on palpation of the right anterior and lateral rib cage Procedure Notes Procedures Results No results found for this or any previous visit (from the past week). XR Ribs Right With Chest 3+ Views (Results Pending) Orders Placed This Visit Orders Placed This Encounter Procedures XR Ribs Right With Chest 3+ Views Medication List At End Of Visit Current Outpatient Medications Medication Sig Dispense Refill amLODIPine (NORVASC) 5 MG tablet hydroCHLOROthiazide (HYDRODIURIL) 25 MG tablet metFORMIN (GLUCOPHAGE-XR) 500 MG 24 hr tablet omeprazole (PRILOSEC) 20 MG capsule TAKE 1 CAPSULE BY MOUTH DAILY BEFORE BREAKFAST. 1/2 HR BEFORE MEAL. pravastatin (PRAVACHOL) 80 MG tablet Take 1 (one) tablet (80 mg total) by mouth daily . traMADol (ULTRAM) 50 mg tablet Take 1 (one) tablet (50 mg total) by mouth 3 (three) times a day as needed for pain . 10 tablet 0 No current facility-administered medications for this visit. There are no Patient Instructions on file for this visit. 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 To help resolve the inflammation and return to normal function take the medications as directed. Please begin with the 60 mg of steroid/prednisone daily for 6 days then transition to the 10 mg pills for the last 4 days of treatment. If you have worsening of symptoms or any further concerns please return for repeat evaluation [facility] Work Phone: 02-26-2022 Hospital Discharge instructions Patient Education 02/26/2022 07:02:56 Chest Pain, Uncertain Cause Uncertain Causes of Chest Pain Chest pain can happen for a number of reasons. Sometimes the cause can't be determined. If your condition does not seem serious, and your pain does not appear to be coming from your heart, your healthcare provider may recommend watching it closely. Sometimes the signs of a serious problem take more time to appear. Many problems not related to your heart can cause chest pain. These include: Musculoskeletal. Costochondritis is an inflammation of the tissues around the ribs that can occur from trauma or overuse injuries, or a strain of the muscles of the chest wall Respiratory. Pneumonia, collapsed lung (pneumothorax), or inflammation of the lining of the chest and lungs (pleurisy) Gastrointestinal. Esophageal reflux, heartburn, ulcers, or gallbladder disease Anxiety and panic disorders Nerve compression and inflammation Rare miscellaneous problems such as aortic aneurysm (a swelling of the large artery coming out of the heart) or pulmonary embolism (a blood clot in the lungs) Home care After your visit, follow these recommendations: Rest today and avoid strenuous activity. Take any prescribed medicine as directed. Be aware of any recurrent chest pain and notice any changes Follow-up care Follow up with your healthcare provider if you do not start to feel better within 24 hours, or as advised. Call 911 Call 911 if any of these occur: A change in the type of pain: if it feels different, becomes more severe, lasts longer, or begins to spread into your shoulder, arm, neck, jaw or back Shortness of breath or increased pain with breathing Weakness, dizziness, or fainting Rapid heart beat Crushing sensation in your chest When to seek medical advice Call your healthcare provider right away if any of the following occur: Cough with dark colored sputum (phlegm) or blood Fever of 100.4 F (38 C) or higher, or as directed by your healthcare provider Swelling, pain or redness in one leg [phone] [employer]. [address] [place] [address]. All rights reserved. This information is not intended as a substitute for professional medical care. Always follow your healthcare professional's instructions. Follow Up Care 02/26/2022 05:53:55 With:DARRELL GARRIDO Address: [address] [place] [address] [place] [phone] Business (1) When:2-4 days [facility] 06-16-2021 Note HNO ID: [id number] Author: Tyrone Cummings APRN.AUDIO VISUAL ENGINEER, DNP Service: ? Author Type: Nurse Practitioner Type: Progress Notes Filed: 06/16/2021 8:50 AM Note Text: Chief Complaint Patient presents with: Establish Care HPI Ayush Jones is a 66 year old male who presents here today for a established physical exam. New to the clinic. Past Medical History: Obesity, hyperlipidemia, hypertension, GERD, Impaired fasting Glucose, ED Specialty Providers: None Presents to the [facility] as an established patient Dr. Moe Luke MD, and Rodney Marquez This is a new patient to me. No recent urgent care visits, ER visits, or hospitalizations. Prediabetes: Diagnosed with being prediabetic several months ago. Started on Metformin. No recent lab work. States previously was diagnosed with Covid and at that time was placed on steroids and if blood sugar spiked significantly. Shortly after that he was started on Metformin. Hypertension: On enalapril. States blood pressure is typically controlled. Denies side effects. Today blood pressure is 150/80. He did take his blood pressure medication this morning. Denies any headaches, lightheadedness or dizziness. No chest pain, difficulty breathing or shortness of breath. No chronic pain or chronic muscle or joint pain. No history of chronic constipation or diarrhea. Past medical history, appointments, medications, allergies reviewed 06/16/2021 Previous Medical History PAST MEDICAL HISTORY Diagnosis Date - Acid reflux - Class 2 obesity with body mass index (BMI) of 35.0 to 35.9 in adult - HTN (hypertension) - Hyperlipidemia LDL goal < 100 - Impaired fasting glucose 12/31/2014 - Low testosterone Previous Surgical History PAST SURGICAL HISTORY Procedure Laterality Date - APPENDECTOMY 2002 - SCROTUM EXCISION Family History FAMILY HISTORY Adopted: Yes Problem Relation Age of Onset - Cancer Mother Bladder Cancer - Coronary Artery Disease Father - Leukemia Father - Alzheimer's Disease Father - Coronary Artery Disease Sister - Heart Attack Sister - Stroke Sister - Coronary Artery Disease Sister - No Known Problems Brother - No Known Problems Brother - No Known Problems Brother - Coronary Artery Disease Maternal Grandmother - Cancer Maternal Grandmother - Coronary Artery Disease Maternal Grandfather - Cancer Maternal Grandfather - Coronary Artery Disease Paternal Grandmother - Coronary Artery Disease Paternal Grandfather - Bipolar disorder Daughter Patient Allergies ALLERGIES No Known Allergies Current Medications Current Outpatient Medications on File Prior to Visit Medication Sig - metFORMIN (GLUCOPHAGE) 500 mg tablet Take 500 mg by mouth daily with breakfast. - enalapril (VASOTEC) 10 mg tablet Take 1 tablet by mouth once daily. - omeprazole (PRILOSEC) 20 mg capsule TAKE 1 CAPSULE BY MOUTH DAILY BEFORE BREAKFAST. 1/2 HR BEFORE MEAL. - pravastatin (PRAVACHOL) 80 mg tablet TAKE 1 TABLET BY MOUTH ONCE DAILY. No current facility-administered medications on file prior to visit. Social History Social History Tobacco Use - Smoking status: Former Smoker Packs/day: 0.50 Years: 45.00 Pack years: 22.50 Types: Cigarettes Quit date: 1982 Years since quittin.6 - Smokeless tobacco: Never Used - Tobacco comment: using electronic cigarette now Vaping Use - Vaping Use: Never used Substance Use Topics - Alcohol use: Yes Alcohol/week: 1.0 standard drinks Types: 1 Cans of Beer (12oz) per week Comment: Socially - Drug use: No Review of Symptoms GENERAL: No unintentional weight loss, malaise or fevers. No night sweats HEENT: Negative for frequent or significant headaches No significant change in vision. No blurry vision, double vision, or vision loss. No nasal discharge or nose bleeds. No sore throat, difficulty swallowing, mouth lesions or hoarseness No hearing loss. No earaches, ear pain, or ear discharge. NECK: Negative for lumps, pain and significant neck swelling RESPIRATORY: Negative for cough or hemoptysis. No wheezing, dyspnea or shortness of breath CARDIOVASCULAR: Negative for chest pain, leg swelling, or palpitations, + erectile dysfunction GI: No nausea, vomiting, or diarrhea. No blood in stool : No dysuria, frequency, urgency. No hematuria. MUSCULOSKELETAL: Chronic back pain, leg cramps SKIN: Negative for lesions, rash, and itching HEMATOLOGY/LYMPHOLOGY: Negative for prolonged bleeding, bruising easily or swollen nodes EXAM: BP 150/80 Pulse 74 Temp 36.7 ?C (98 ?F) Resp 14 Wt 112 kg (247 lb) SpO2 97% BMI 35.44 kg/m? General Appearance: Well appearing, alert, in no acute distress, well-hydrated, well nourished. Obese Skin: Skin color, texture, turgor normal, no suspicious rashes or lesions. Head: Normocephalic, no masses, lesions, tenderness or abnormalities. Eyes: Anicteric sclera. Pupils are equally round and reactive to light. Ext (more content not included)... [facility] Discharge summary Note Date/Time January 17, 2023 2:33 am [facility] Medical Records Department [address] [place] [address] Emergency Department Summary 01/17/23 MR#: [id number] Acct: [id number] Name: AYUSH JONES Rep #:[id number] : [id number] 67 From: Tom Yanez DO PCP: Dr. Darrell Garrido MD Status:REG E R Location: ED HPI History of Present Illness Chief Complaint: Diarrhea Narrative Narrative: Patient is a 67-year-old male with past medical history of type 2 diabetes and hyperlipidemia. He states he went to bed Saturday night feeling normal then awokearound 1 in the morning with generalized abdominal discomfort feeling like he had to have a bowel movement. He states when he did this it was watery/diarrhea. He states as time passed he had increasing abdominal discomfort as well as increasing bouts of diarrhea. He reports that there has been no sick contacts and that his does not have any similar symptoms. He also denies any recent antibiotic use travel outside the country or livestock exposure. He states he saw an urgent care provider and was advised to take [id number] Imodium. He states he did this but there was no improvement ofhis symptoms and secondary to this he comes in for evaluation. Patient denies any history of ulcerative colitis Crohn's disease or IBS [facility] Medical History Abdominal pain Abnormal bruising Arthritis Blurred vision Chronic back pain COVID Diabetes Diarrhea Fatigue Frequent headaches Hyperlipemia Hypertension Limb weakness Shoulder pain Home Medications nystatin 100,000 unit/mL oral suspension 4 ml PO Q6H #60 mL 05/02/21 [Rx Last Taken Unknown] enalapril maleate 20 mg tablet See Rx Instructions .Route .COMPLEX #90 tabs 05/16/21 [Rx Last Taken Unknown] omeprazole 20 mg capsule,delayed release 20 mg PO DAILY #90 caps 05/16/21 [Rx Last Taken Unknown] pravastatin 80 mg tablet 80 mg PO QHS #90 tabs 05/16/21 [Rx Last Taken Unknown] amoxicillin 875 mg-potassium clavulanate 125 mg tablet (Augmentin) 1 tab PO BID #20 tabs 11/06/21 [Rx Last Taken Unknown] glimepiride 1 mg tablet 1 mg PO DAILY 11/06/21 [History Last Taken Unknown] dicyclomine 20 mg tablet 20 mg PO 4X/DAY PRN PRN Abdominal bloating/spasm #28 tabs 01/17/23 [Rx Last Taken Unknown] diphenoxylate-atropine 2.5 mg-0.025 mg tablet (Lomotil) 1 tab PO 4X/DAY PRN PRN diarrhea 5 days #20 tabs 01/17/23 [Rx Last Taken Unknown] ondansetron 4 mg disintegrating tablet 4 mg PO TID PRN nausea and vomiting #21 tabs 01/17/23 [Rx Last Taken Unknown] Allergy/AdvReac Type Severity Reaction Status Date / Time No Known Allergies Allergy Verified 01/17/23 02:05 Family History Mother Cancer Father Heart disease Myocardial infarction Brother Myocardial infarction Heart disease CVA (cerebral vascular accident) Sister CVA (cerebral vascular accident) Myocardial infarction Hypertension Surgical History History of appendectomy Social History Smoking Status: Never smoker how long ago did patient quit smokin alcohol intake: never substance use type: does not use what type of physical activity do you participate in: none ROS ROS ED Constitutional Constitutional ED: Denies chills or fever(s) ENT ENT ED: Denies sore throat Cardiovascular Cardiovascular: Denies chest pain Respiratory/Chest Respiratory/Chest: Denies cough or dyspnea Gastrointestinal Gastrointestinal: Reports abdominal pain, diarrhea and nausea; Denies vomiting Genitourinary Genitourinary ED: Denies dysuria or hematuria Musculoskeletal Musculoskeletal: Reports myalgias Integumentary Denies rash Neurologic Neurologic: Denies headache(s) Hematologic/Lymphatic Hematologic/Lymphatic: Denies easy bleeding or easy bruising EXAM Physical Exam Const Vital Signs: 01/17/23 02:02 Temperature 97.8 F Temperature Source Temporal Pulse Rate 87 Respiratory Rate 18 Blood Pressure 163/93 H Blood Pressure Mean 116 Pulse Ox 97 Oxygen Delivery Method Room Air Positive well nourished, well developed and obese General Appearance ED: well developed Nutritional Appearance: obese HEENT HEENT Narrative: Mucous membranes are slightly dry and tacky without tongue or lip swelling oral lesions airway edema or compromise or signs of infection in the posterior pharynx Eyes PERRL and EOMs intact bilaterally General Eye ED: Negative for scleral icterus Neck supple Resp normal respiratory effort and clear to auscultation bilaterally Cardio regular rate and regular rhythm Rate: other Other Details: Radial pulses are plus 2 out of 4 bilaterally are equal and symmetric GI non-tender GI Narrative: Abdomen is soft with slight distention and hyperactive bowel sounds. No voluntary guarding or rigidity or pain on palpation. No pulsatile mass or fluidwave Auscultation: hyperactive bowel sounds Palpation: soft Extremity normal to inspection Neuro oriented x3 and CN's II-XII intact bilaterally Sensorium / Orientation: alert Psych mental status grossly normal Skin no rashes or lesions noted Skin Narrative: Skin turgor is slightly increased General Skin Exam: Negative for jaundice MDM MDM MDM Narrative Medical decision making narrative: Patient presented to the ER slightly hypertensive but has a past medical historyof this and otherwise with stable vitals. He reported 2 to 3 days of abdominal discomfort with bouts of nausea and loose stool/diarrhea. His history and exam is consistent with a viral stomach infection but in order to ensure there is no signs of acute pancreatitis gallbladder dysfunction electrolyte derangement acute kidney injury or possibly DKA or HHS basic blood work was obtained. Labs revealed no clinically significant findings. Patient was given IV fluids as well as Lomotil and Bentyl and did have improvement of symptoms. He had no bouts of vomiting or loose stool/diarrhea while in the ER. Also as he has no risk factors for an infectious diarrhea such as E. coli or Salmonella or Shigella I do not feel there is need for stool sample. The plan of care was discussed with the patient and as he reports feeling better and we prescribe similar medications for home he feels comfortable being discharged at this time History & Record Review Discussion w/independent historian: Patient Lab Data Attestation: I reviewed the patient's lab results. Labs: Laboratory Results - last 24 hr 01/17/23 01/17/23 02:30 02:30 WBC 6.0 RBC 4.13 L Hgb 12.9 L Hct 37.6 L MCV 91.0 MCH 31.2 MCHC 34.3 RDW Std Deviation 39.9 RDW Coeff of Kalee 12.0 Plt Count 186 MPV 8.9 Immature Gran % (Auto) 0.300 Neut % (Auto) 54.8 Lymph % (Auto) 23.5 [place] % (Auto) 17.0 H Eos % (Auto) 3.7 Baso % (Auto) 0.7 Absolute Neuts (auto) 3.3 Absolute Lymphs (auto) 1.40 Nucleated RBC % 0 Sodium 136 Potassium 3.9 Chloride 105 Carbon Dioxide 22.0 Anion Gap 9 BUN 19 H Creatinine 1.12 Estim Creat Clear Calc 71.21 Est GFR (MDRD) Af Amer 84 Est GFR (MDRD) Non-Af 70 BUN/Creatinine Ratio 17.0 Glucose 207 H Calcium 8.4 L Total Bilirubin 0.40 Direct Bilirubin 0.08 AST 18 ALT 29 Alkaline Phosphatase 107 Total Protein 7.0 Albumin 3.7 Globulin 3.3 Lipase 81 Discharge Plan Triage Chief Complaint: Diarrhea ED Provider: Tom Yanez Dx/Rx/DC Orders Clinical Impression: Nausea vomiting and diarrhea, Mild dehydration, Hypertension, Type 2 diabetes mellitus Instructions: ED Gastroenteritis, Viral (Adult) Prescriptions: New dicyclomine 20 mg tablet 20 mg PO 4X/DAY PRN PRN (Reason: Abdominal bloating/spasm) Qty: 28 0RF ondansetron 4 mg tablet,disintegrating 4 mg PO TID PRN (Reason: nausea and vomiting) Qty: 21 0RF diphenoxylate-atropine [Lomotil] 2.5-0.025 mg tablet 1 tab PO 4X/DAY PRN PRN (Reason: diarrhea) 5 Days Qty: 20 0RF No Action nystatin 100,000 unit/mL suspension 4 ml PO Q6H Qty: 60 0RF Rx Instructions: swish and swallow enalapril maleate 20 mg tablet See Rx Instructions .ROUTE .COMPLEX Qty: 90 3RF Dose Instruction: TAKE 1 TABLET DAILY Rx Instructions: TAKE 1 TABLET DAILY pravastatin 80 mg tablet 80 mg PO QHS Qty: 90 3RF omeprazole 20 mg capsule,delayed release(DR/EC) 20 mg PO DAILY Qty: 90 3RF glimepiride 1 mg tablet 1 mg PO DAILY Label Comments: Take 1 tablet by mouth daily amoxicillin-pot clavulanate [Augmentin] 875-125 mg tablet 1 tab PO BID Qty: 20 0RF Primary Care Provider: Darrell Garrido Referrals: Darrell Garrido MD [Primary Care Provider] - Activity Restrictions/Additional Instructions: Your history and exam is consistent with a viral stomach infection. This will last 3 to 7 days on average. Please keep yourself well-hydrated and take the medication as directed to help control symptoms. If you have any further concerns please return to the ER for repeat evaluation Disposition Disposition: Home, Self Care What to do if you have Problems For any increased pain, shortness of breath, bleeding, nausea or vomiting, chestpain, or any unexpected problems, contact your Primary Care Provider. Call [facility] ([phone]) or report to the closest Emergency Room. Call 911 if necessary. 01/17/23 7902 <Electronically signed by Tom Yanez DO> Cosigner Signature (if applicable): CC: Dr. Darrell Garrido MD ~ Signed [facility] Work Phone: Evaluation + Plan note No data available for this section [facility] Evaluation noteNo assessment information available [facility] Work Phone: Evaluation note* Diagnosis Onset Date Resolution Status Abdominal pain acute Diarrhea acute [facility] Work Phone: Evaluation note* Diagnosis Rib pain on right side- Primary [facility] Discharge instructions Additional Instructions Your history and exam is consistent with a viral stomach infection. This will last 3 to 7 days on average. Please keep yourself well-hydrated and take the medication as directed to help control symptoms. If you have any further concerns please [facility] Work Phone: Progress note No data available for this section [facility] Summary Purpose Family History No Family History Records Found Relationship Condition Age at Onset Recorded Date/T yamilka mother Malignant neoplasm Unknown father Cardiac disease Unknown Myocardial infarction Unknown brother Myocardial infarction Unknown Cardiac disease Unknown Cerebrovascular accident (CVA) Unknown sister Cerebrovascular accident (CVA) Unknown Hypertension Unknown Advance Directives No Advanced Directives Records Found Advance Directive Response Recorded Date/ Time Advance Directives No March 18, 2020 7:35am Living Will No November 06 021 3:58am Power of Housing Inspectors No November 06, 2021 3:58am Advance Directive Response Recorded Date/ Time Advance Directives No March 18, 2020 7:35am Living Will No January 17, 2023 2:09am Power of Housing Inspectors No January 17 3 2:09am Advance Directive Response Recorded Date/ Time Advance Directives No August 23, 2020 8:35am Living Will No May 27, 2023 6:26am Power of Housing Inspectors No May 27 3 6:26am Chief Complaint and Reason for Visit Chief Complaint DIARRHEA/ABD CRAMPIN G diarrhea Reason for Visit Abdominal pain Diarrhea Chief Complaint LEFT FACIAL DROOP Additional Source Comments (unrecognized sect ion and content) No Status Records FoundNo Status Records FoundNo Status Records FoundNo Status Records Found INFORMATION SOURCE (unrecogn ized section and content) DATE CREATED AUTHOR 01/06/2022 [facility] DATE CREATED AUTHOR AUTHOR'S ORGANIZ ATION 02/27/2022 [facility] ([place]) DATE CREATED AUTHOR AUTHOR'S ORGANIZ ATION 10/06/2024 [facility] DATE CREATED AUTHOR AUTHOR'S ORGANIZ ATION 01/09/2025 [facility] Care Team (unrecognized sect ion and content) Team Status: Active Member Role Status Dates Dr. Moe Luke MD Family Provider Active Dr. Darrell Garrido MD Primary Care Provider Active Team Status: Inactive Member Role Status Dates Dr. Darrell Garrido MD Primary Care Provider, Attending Provider Active Team Status: Inactive Member Role Status Dates Dr. Darrell Garrido MD Primary Care Provider, Referring Provider Active Kade DAVIDSON, PA Attending Provider Active Team Status: Inactive Member Role Status Dates Dr. Darrell Garrido MD Primary Care Provider Active Dr. Tom Yanez DO Emergency Provider Active [employer] Relationship Specialty Start Date End Date No, Physician [facility] PCP - General 09/30/24 Goals (unrecognized section and content) Goals may be documented in a n alternate section Reason for Visit (unrecogniz ed section and content) Reason Comments Rib Injury Right sided rib pain after a coughing fit. Alice something pop. Currently treated for URI FOR RECORDS PERTAINING TO PATIENTS WHO ARE OR HAVE BEEN ENROLLED IN A CHEMICAL DEPENDENCY/SUBSTANCEABUSE PROGRAM, SOME INFORMATION MAY BE OMITTED. This clinical summary was aggregated from multiple sources. Caution should be exercised in using it in the provision of clinical care. This summary normalizes information from multiple sources, and as a consequence, information in this document may materially change the coding, format and clinical context of patient data. In addition, data may be omitted in some cases. CLINICAL DECISIONS SHOULD BE BASED ON THE PRIMARY CLINICAL RECORDS. [employer] provides no warranty or guarantee of the accuracy or completeness of information in this document.
[2025-05-06 10:51] LABS: Anion Gap 11 (5-15); BUN 13 mg/dL (4-19); BUN/Creat Ratio 13.4 RATIO (10-20); Calcium,Total 9.3 mg/dL (7.6-11.0); Chloride 101 mmol/L (98-108); Cholesterol 189 mg/dL (<=200); Creatinine, Serum 0.96 mg/dL (0.70-1.20); EST Glomerular Filtration Rate 86 (>60); Glucose 173 mg/dL (70-99); High Density Lipoprotein 50 mg/dL; Low Density Lipoprotein Calc. 105 mg/dL; Potassium 4.2 mmol/L (3.3-5.1); Sodium Level 138 mmol/L (133-145); Triglycerides 170 mg/dL; Very Low Density Lipoprotein 34 mg/dL (5-40); cholesterol:hdl ratio screen 3.78
[2025-05-06 11:28] LABS: Microalbumin,Random Urine < 12.0 mg/L (NO RANGE EST.); Microalbumin:Creatinine Ratio UNABLE TO CALCULATE mg/g CRE
== END | disposition home or self-care (01) ==
PROVIDERS: PCP Family Medicine; Referring Provider Family Medicine; Visit Provider Family Medicine
DX: E11.9 Type 2 diabetes mellitus without complications (principal)
CPT/HCPCS: 36415; 80048; 80061; 82043; 82570; 83036

== ENCOUNTER → 2025-07-13 | Outpatient (CLI) | payer MEDICARE, SELFPAY ==
--- NOTE | 2025-07-13 12:35 | ECHOD_ITS ---
Reason For Study Reason For Study: Chest Pain Procedure This was a 2D Doppler, Color Flow transthoracic echocardiogram. Myocardial strain analysis was performed in this exam to aid in the assessment of cardiac function. Exam performed in department. Left Ventricle Normal LV size. Mild concentric left ventricular hypertrophy. Left ventricular systolic function is normal. The left ventricular ejection fraction is 55 %. No regional wall motion abnormalities noted. Right Ventricle Normal RV size. Normal systolic function. Atria Normal left atrium. Normal right atrium. Mitral Valve Normal mitral valve. Mild-Moderate (1-2+) eccentric mitral valve insufficiency. Tricuspid Valve Normal tricuspid valve. Mild (1+) tricuspid valve insufficiency. Pulmonary artery systolic pressure is 27 mmHg. Aortic Valve Trisinus/trileaflet aortic valve. Pulmonic Valve Normal pulmonic valve. Great Vessels Normal aortic root. The pulmonary artery is normal size. Inferior vena cava collapse with respiration. Pericardium/Pleural No pericardial effusion. MMode/2D Measurements & Calculations LVIDd: 5.3 cm IVSd: 1.3 cm CO(Teich): 6.1 l/min LVIDs: 3.7 cm LVPWd: 1.2 cm FS: 30.0 % Ao root diam: 4.0 cm asc Aorta Diam: 4.0 cm LAV(MOD- bp): 68.9 ml LAV(MOD- bp) Indexed: 28.9 ml/m2 LAV(MOD- sp2): 73.1 ml LAV(MOD- sp4): 64.7 ml CO(MOD-sp4): 6.4 l/min SV(sp4- el): 83.2 ml LVAd ap4: 39.3 cm2 SV(MOD-sp4): 81.2 ml LVLd ap4: 9.5 cm EDV(MOD-sp4): 134.5 ml SI(MOD-sp4): 34.1 ml/m2 EDV(sp4-el): 137.5 ml LVAs ap4: 22.6 cm2 LVLs ap4: 8.0 cm ESV(MOD-sp4): 53.3 ml ESV(sp4-el): 54.3 ml EF(MOD-sp4): 60.4 % EF(sp4-el): 60.5 % LA A4 area: 20.5 cm2 LA dimension(2D): 4.8 cm RA A4 area: 19.9 cm2 TAPSE: 2.8 cm Time Measurements MV dec time: 0.20 sec Doppler Measurements & Calculations MV E max coleman: 106.4 cm/sec Lat Peak E' Coleman: 9.4 cm/sec Med Peak E' Coleman: 7.4 cm/sec MV A max coleman: 92.9 cm/sec E/E' lat: 11.4 E/E' med: 14.3 MV E/A: 1.1 Ao V2 max: 173.7 cm/sec LV V1 max: 115.1 cm/sec MV dec slope: 529.7 cm/sec2 Ao max P.1 mmHg LV V1 max P.3 mmHg Ao V2 mean: 125.3 cm/sec LV V1 mean P.4 mmHg Ao mean P.1 mmHg LV V1 mean: 87.4 cm/sec Ao V2 VTI: 40.8 cm LV V1 VTI: 28.0 cm AV (velocity ratio): 0.69 PA V2 max: 114.6 cm/sec PI end-d coleman: 79.0 cm/sec TR max coleman: 244.2 cm/sec TR max P.0 mmHg ECHO/Echo Complete Interpretation Summary Normal LV size. Left ventricular systolic function is normal. The left ventricular ejection fraction is 55 %. Mild-Moderate (1-2+) eccentric mitral valve insufficiency. Mild concentric left ventricular hypertrophy. The global longitudinal strain is borderline abnormal. The global longitudinal strain = -16.1% (abnormal). Ordering Physician: Darrell Jolly Referring Physician: Darrell Jolly Performed By: Roof, Hillary, RDCS, RVT
== END | disposition home or self-care (01) ==
LOC: CVS 12:28
PROVIDERS: PCP Family Medicine; Referring Provider Family Medicine; Visit Provider Family Medicine
DX: R07.89 Other chest pain (principal); M79.89 Other specified soft tissue disorders
CPT/HCPCS: 93306